=== PATIENT | male | born 1975 | race Caucasian/White ===

== ENCOUNTER 2016-11-19 14:43 | Outpatient (RCR) | payer OTHER ==
[~2016-11-19 14:43] MED LIST: AMLO10TA82 PO; ASP325T PO; ASP81TEC PO; ASPI325T32 PO; ATR20T PO; DOXY100C2 PO; ISM60TCR PO; LISI20TA2 PO; LSNP20T PO; METO25TA2 PO; NTR.4SL PO; OMEP20CA6 PO; ONDA8TAB9 PO
== END 2017-02-17 | disposition home or self-care (01) ==
LOC: LAB 14:43 → EDSTATUS 16:01
PROVIDERS: ATTEND Nurse Practitioner Women's Health
DX: Z31.41 Encounter for fertility testing (principal)
CPT/HCPCS: 89320

== ENCOUNTER → 2019-12-29 | Outpatient (CLI) | payer BC ==
--- NOTE | 2019-12-29 15:23 | Diagnostic Imaging Report ---
INDICATION: Neck pain. Cervical spine. FINDINGS: AP and lateral views of the cervical spine show extensive postsurgical changes with effusions extending from C3 through C7. This includes discectomies at three levels and laminectomies C5 through C7. Alignment is normal. Hardware appears to be intact. IMPRESSION: Postoperative changes from extensive fusion of the cervical spine. No acute abnormality seen. Dictated by: Dictated on workstation # [id number]
== END ==
LOC: RAD FS 14:59
PROVIDERS: ATTEND Nurse Practitioner Family
DX: M54.2 Cervicalgia (principal); Z98.890 Other specified postprocedural states; Z98.1 Arthrodesis status
CPT/HCPCS: 72040

== ENCOUNTER 2020-04-14 15:19 | Emergency (ER) | payer BC ==
[~2020-04-14] VITALS: Ht 190.5 cm; Wt 131.6 kg
--- NOTE | 2020-04-14 15:33 | ED Upper Extremity ---
General Chief Complaint: Upper Extremity Stated Complaint: RT HAND INJ Source: patient, RN/MD Exam Limitations: no limitations History of Present Illness Date Seen by Provider: Apr 14, 2020 Time Seen by Provider: 15:25 Initial Comments This patient is a 44-year-old male that presents to the emerged from stated he had a fall 2 days ago was at work. Patient states unsure whether he passed out or dispel. Patient states he admit complaint right hand pain and bilateral hand swelling over the fifth metacarpal. Patient does have a history of high blood pressure and cardiac disease where he had said several stents in the past. Denies any history of cardiac attacks or heart attacks. States he just had a stress test that he felt again stents. Patient was offered full medical screening exam including laboratory evaluation and further imaging patient declines request only x-ray of right hand. Patient states he does not feel dizzy and has had no other issues since falling on Wednesday 2 days ago. Patient's blood pressure on arrival is 140/101. Patient states this is normal blood pressure for him and he does take lisinopril for the same. Onset: last week Pain/Injury Location: right hand Method of Injury: fell Allergies and Home Medications Allergies Coded Allergies: No Known Drug Allergies (Unverified , 03/31/12) Home Medications Aspirin 325 Mg Tablet.dr, 325 MG PO, (Reported) Atorvastatin 20 Mg Tablet, 20 MG PO HS, (Reported) Doxycycline Hyclate 100 Mg Capsule, 100 MG PO BID, (Reported) Lisinopril 20 Mg Tab, 20 MG PO DAILY, (Reported) Ondansetron Hcl 8 Mg/Tab Tab.rapdis, 8 MG PO Q6H Prescribed by: NASEEM GLOVER on 12/06/12 [id number] Patient Home Medication List Home Medication List Reviewed: Yes Review of Systems Constitutional: No no symptoms reported; see HPI; No chills, No diaphoresis, No dizziness, No fever, No malaise, No weakness, No weight gain, No weight loss, No other EENTM: No see HPI, No no symptoms reported, No ear discharge, No hearing loss, No ear pain, No blurred vision, No double vision, No eye pain, No tearing, No vision loss, No dental problems, No hoarseness, No mouth pain, No mouth swelling, No epistaxis, No nose congestion, No nose pain, No throat pain, No throat swelling, No other Respiratory: No no symptoms reported, No see HPI, No cough, No dyspnea on exertion, No hemoptysis, No orthopnea, No phlegm, No short of breath, No stridor, No wheezing, No other Cardiovascular: No no symptoms reported, No see HPI, No chest pain, No edema, No Hx of Intervention, No palpitations, No syncope, No vascular heart diseas, No other Gastrointestinal: No RUQ, No LUQ, No RLQ, No LLQ, No no symptoms reported, No see HPI, No abdominal pain, No constipation, No diarrhea, No dysphagia, No hematemesis, No heartburn, No jaundice, No loss of appetite, No melena, No nausea, No vomiting, No other Musculoskeletal: No no symptoms reported; see HPI; No back pain, No gout; joint pain; No joint swelling, No muscle pain, No muscle stiffness, No muscle cramps, No muscle twitching, No muscle weakness, No neck pain, No other Skin: No no symptoms reported, No see HPI, No change in color, No change in hair/nails, No dryness, No hx of skin cancer, No lesions, No lumps, No pruritus, No rash, No other All Other Systems Reviewed Negative Unless Noted: Yes Past Smbkuru-Rzedcb-Fcrecj Hx Patient Social History Alcohol Use: Denies Use Recreational Drug Use: No Smoking Status: Never a Smoker 2nd Hand Smoke Exposure: No Recent Hopitalizations: No Physical Abuse: No Sexual Abuse: No Mistreated: No Fear: No Immunizations Up To Date Date of Pneumonia Vaccine: Nov 08, 2008 Date of Influenza Vaccine: Nov 08, 2011 Past Medical History Surgeries: Yes (hernia, knee surgery, neck surgery) Abdominal, Appendectomy, Gallbladder, Orthopedic Respiratory: No Cardiac: Yes High Cholesterol, Hypertension Neurological: Yes (spine fusion surgery twice) Reproductive Disorders: No Sexually Transmitted Disease: No HIV/AIDS: No Genitourinary: No Gastrointestinal: Yes Musculoskeletal: No Endocrine: No HEENT: No Cancer: No Psychosocial: No Integumentary: No Blood Disorders: No Adverse Reaction/Blood Tranf: No Physical Exam Vital Signs Vital Signs - First Documented 04/14/20 15:25 Temp 36.3 Pulse 97 Resp 18 B/P (MAP) 141/101 (114) Pulse Ox 95 O2 Delivery Room Air Capillary Refill : Height, Weight, BMI Height: '" Weight: lbs. oz. kg; BMI Method:Stated General Appearance: WD/WN, no apparent distress HEENT: PERRL/EOMI, normal ENT inspection, TMs normal, pharynx normal Neck: non-tender, full range of motion, supple, normal inspection Cardiovascular: normal peripheral pulses, regular rate, rhythm, no edema, no gallop, no JVD, no murmur Respiratory: chest non-tender, lungs clear, normal breath sounds, no respiratory distress, no accessory muscle use Gastrointestinal: normal bowel sounds, non tender, soft, no organomegaly, no pulsatile mass, abnormal bowel sounds Hand: Right, bone tenderness, swelling Progress/Results/Core Measures Results/Orders My Orders Orders - ALAN PARADA MD Hand 3 View Right (04/14/20 15:28) Vital Signs/I&O 04/14/20 15:25 Temp 36.3 Pulse 97 Resp 18 B/P (MAP) 141/101 (114) Pulse Ox 95 O2 Delivery Room Air Progress Progress Note : Time: 16:08 Progress Note Negative review x-rays. Patient appears to have just a mild sprain to the hand and wrist. We'll place patient Velcro cock-up splint. Patient keep rest ice elevation compression as needed. Follow-up with PCP in 2-3 days. May use Tylenol Motrin as needed. Departure Impression Primary Impression: Hand sprain Disposition: 01 HOME, SELF-CARE Condition: Stable Departure-Patient Inst. Decision time for Depature: 16:09 Referrals: [facility] (PCP) Primary Care Physician ANAND GROVER APRN (Family) Primary Care Physician Patient Instructions: Contusion (DC) Add. Discharge Instructions: Velcro wrist splint as instructed. Rest ice elevation. Diclofenac as needed for pain. Follow-up with PCP in 2-3 days. All discharge instructions reviewed with patient and/or family. Voiced understanding. Scripts Diclofenac Sodium (Diclofenac Sodium) 75 Mg Tablet. 75 MG PO BID for 10 Days, #20 TAB 0 Refills Prov: ALAN PARADA MD 04/14/20 ALAN PARADA MD Apr 14, 2020 15:33
--- OUTSIDE RECORDS SUMMARY | 2020-04-14 15:33 | XMS REPORT | Clinical Summary ---
Author Author Admin, Talha Delvalle Organization [facility] Talha Address Unknown Phone Unavailable Allergies, Adverse Reactions, Alerts Allergy Name Reaction Description Start Date Severity Status Pr ovider No Known Allergies Rd Howe LPN Conditions or Problems Problem Name Problem Code Onset Date Status Entry Date Provider Comment Standard Description Annotate Problems Unknown Active Medication List Medication Instructions Start Date Stop Date Generic Name NDC Status Provider Patient Instruction IBUPROFEN 200 MG ORAL TABLET 1 tab by mouth daily every 6 hours as needed IBUPROFEN 44778594671 Active Rebecca Elder Active 8 HOUR PAIN RELIEVER 650 MG ORAL TABLET EXTENDED RELEA SE 1 tab by mouth every 8 hours as needed ACETAMINOPHEN 31261087039 Active Rebecca Elder Active ADULT ASPIRIN REGIMEN 81 MG ORAL TABLET DELAYED RELEASE 1 tab by mouth daily ASPIRIN 96661740384 Active Rebecca Elder Active NITROSTAT 0.4 MG SUBLINGUAL TABLET SUBLINGUAL 1 tab un simin tounge every 5 minutes as needed for chest pain NITROGLYCERIN 47229884722 Active Rebecca Elder Active LISINOPRIL 20 MG ORAL TABLET 1 tablet by mouth daily LISINOPRIL 84607807041 Active Rebecca Elder Active HYDROCODONE-ACETAMINOPHEN 5-325 MG ORAL TABLET 1 tab b y mouth every 4 hours as needed HYDROCODONE-ACETAMINOPHEN 26364466013 Active Rebecca Luque r Active EC-NAPROSYN 500 MG ORAL TABLET DELAYED RELEASE 1 tab by mouth twice daily NAPROXEN 34939300694 Active Rebecca Elder Active ATORVASTATIN CALCIUM 40 MG ORAL TABLET 1 nightly, for cholesterol ATORVASTATIN CALCIUM 14281720327 Active Rebecca Elder Active HYOSCYAMINE SULFATE 0.125 MG ORAL TABLET DISINTEGRATIN G 1 tab by mouth every 4 hours as needed HYOSCYAMINE SULFATE 38051723012 Active Rebecca Elder Active HYDROCODONE-ACETAMINOPHEN 10-325 MG/15ML ORAL SOLUTION 1 tab by mouth every 4 hours as needed HYDROCODONE-ACETAMINOPHEN 38491852601 Active Da adonay Higginbotham Active Advance Directives Directive Description Start Date PERMISSION TO SHARE Vital Signs Date Name Value Unit Range Description blood pressure, diastolic 76 mm[Hg] BP chavez blood pressure, systolic 138 mm[Hg] BP sys height E&M 75 [in_us] Bdy height pulse rate E&M 72 /min Heart rate temperature E&M 98.3 [degF] Body temp erature weight E&M 260 [lb_av] Weight Measure d
--- OUTSIDE RECORDS SUMMARY | 2020-04-14 15:33 | XMS REPORT | Continuity of Care Document ---
Author Author Pure[employer]HERMEL[employer] Organization [facility] [employer] Address Unknown Phone Unavailable Care Team Providers Care Tongue Lining Stitcher Name Role Phone [facility] Unavailable Unavailable Problems Problem Status Onset Date Classification Date Reported Comments Source Past Medical History Unknown Diagnosis 01/21/2012 [facility] CERVICALGIA Active [facility] BRACHIAL NEURITIS OR RADICULITIS NOS Active [facility] Medications Medication Details Route Status Patient Instructions Ordering Provider Order Date Source Lortab 5/500 1 TAB, PO, 4 time s a day, 10/26/11 11:22:13 PO Ordered CLIFFT 10/08 [facility] Allergies, Adverse Reactions, Alerts No Known Medication Allergies Immunizations No Data Provided for This Section Results Order Name Results Value Reference Range Date Interpretation Comments Source CSF Protein CSF 30 mg/dL 15 - 45 10/28/2011 [facility] er CSF Glucose CSF 63 mg/dL 40 - 70 10/28/2011 [facility] er CSF Color CSF Colorless <b r/>(10/28/2011 08:30:00) <sup> </sup> Colorless 10/28/2011 [facility] CSF RBC CSF 17 /mm3 <=5 10/28/2011 HI [facility] CSF WBC CSF 4 /mm3 <=5 10/28/2011 [facility] CSF Volume CSF 1.0 mL 10/28/2011 NA [facility] CSF Appear CSF Clear
( 10/28/2011 08:30:00) <sup> </sup> Clear 10/28/2011 [facility] CSF Differential? CSF No
( 08:30:00) <sup> </sup> 10/28/2011 [facility] UNK UNK [facility] Pathology Reports No Data Provided for This Section Diagnostic Reports No Data Provided for This Section Consultation Notes No Data Provided for This Section Discharge Summaries No Data Provided for This Section History and Physicals No Data Provided for This Section Vital Signs Vital Sign Value Date Comments Source Inet NIBP Diastolic 95 mmHg 10/28/2011 [facility] Inet NIBP Systolic 139 mmHg 10/28/2011 [facility] Heart Rate 89 bpm 10/28/2011 [facility] er Heart Rate Location Auto BP (1 12/29/2010 09:00:00) 10/28/2011 [facility] Respiratory Rate 18 br/min 10/28/2011 [facility] NIBP MAP Calc 110 10/28/2011 [facility] er BP Location Arm, right (2010 09:00:00) 10/28/2011 [facility] Temp Method Oral (10/28/2011 0 9:00:00) 10/28/2011 [facility] Temperature 97 DegF 10/28/2011 [facility] er Encounters Location Location Details Encounter Type Encounter Number Reason For Visit Attending Provider ADM Date DC Date Status Source [facility] OP In A Bed [id number] NECK PAIN BILATERAL AR M PAIN NING AHMADI 10/28/2011 10/28/2011 [facility] O Joes Tran MD 10/21/2011 Active [facility] [id number] Laisha Tran 10/21/2011 [facility] Procedures Procedure Code Date Perfomer Comments Source Contrast myelogram [id number] 10/28/2011 [facility] Muscle test, 2 limbs 54807 10/21/2011 [facility] Motor nerve conduction test 95 903 10/21/2011 [facility] Sense nerve conduction test 95 904 10/21/2011 [facility] Plan of Care No Data Provided for This Section Social History Social History Date Source Social History ElementDescriptionQuantit y Unknown 01/21/2012 [facility] Assessment and Plan No Data Provided for This Section Family History Value Date S ource Family MemberDiagnosisAge At OnsetStatus Unknown 01/21/2012 [facility] Advance Directives Order Name Results Value Date Source Advance Directives Advance Dir ectives DirectiveEffective Date Unknown 01/21/2012 [facility] Functional Status No Data Provided for This Section
--- OUTSIDE RECORDS SUMMARY | 2020-04-14 15:33 | XMS REPORT | Encounter Summary ---
Author Author [facility] Organization [facility] Address Unknown Phone Unavailable Care Team Providers Care Card Assembler Name Role Phone ShandraMiguelina jara SIMONE PCP Reason for Visit * Reason Comments Appointment Encounter Details Care Team Description [place] [address] [place] [address] Appointment 03/06/2020 Telephone [facility] [address] [place] [id number] Social History Date Tobacco Use Types Packs/Day Years Used Never Smoker Smokeless Tobacco: Never Used Drinks/Week oz/Week Comments Alcohol Use No Sex Assigned at Date Recorded Not on file Industry Job Start Date Occupation Not on file Not on file Not on file Travel End Travel History Travel Start No recent travel history available. documented as of this encounter Functional Status Date of Assessment Functional Status Response 11/04/2018 Does the patient have a hearing impairment: No 11/04/2018 Does the patient have a visual impairment: Yes 11/04/2018 Does the patient have impaired ambulation: Yes 11/04/2018 Does the patient have an activity of daily living No (ADL) impairment: 11/04/2018 Does the patient have an instrumental activity of No daily living (IADL) impairment: Date of Assessment Cognitive Status Response 11/04/2018 Does the patient have a cognitive impairment: No documented as of this encounter Miscellaneous Notes * Telephone Encounter - Maribell Person - 03/06/2020 2:53 PM CDT PATIENT NOTIFIED 03/06/20 @ 2:53 AT HOME REGARDING CHANGE IN APPOINTMENT---RGL * Telephone Encounter - Alicia Costello RN - 03/06/2020 2:22 PM CDT Talha returned call and said okay to reschedule, denies any issues at this time. * Telephone Encounter - Whit Wray RN - 03/06/2020 1:51 PM CDT Called and left a voicemail on patient's phone in regards to appointment schedul ed for next week. Inquired if patient' would like to move out his appointment or having concerns that need to be addressed. Direct callback number left as well as information about [employer] portal. documented in this encounter Plan of Treatment Not on filedocumented as of this encounter Visit Diagnoses Not on filedocumented in this encounter
--- OUTSIDE RECORDS SUMMARY | 2020-04-14 15:33 | XMS REPORT | Continuity of Care Document ---
Author Author PAGE Fu Organization [facility] Address [facility] [place] [address] Phone Care Team Providers Care Vice President Of Engineering Name Role Phone PP Unavailable Kris KINNEY, Ernesto DRAPER Unavailable Payers Payer name Insurance type Covered democrat ID Authorization(s ) BCBS Out Of Area GP [id number] Problems Condition Effective Dates (start - stop) Clinical Status Unknown Family History Family Member Diagnosis Age At Onset Status Unknown Social History Social History Element Description Quantity Unknown Allergies, Adverse Reactions, Alerts Substance Reaction Severity Status Unknown Medications Medication Instructions Dosage Effective Dates (start - sto p) Status Unknown Immunizations Vaccine Date Status Unknown Results Test Name Date and Time Measure Units Reference Range Abnormal F lag Comments Unknown Vital Signs Date / Time: Height Weight Pulse Rate Blood Pressure Temperat ure Unknown Procedures Procedure Date Muscle test, 2 limbs Motor nerve conduction test Sense nerve conduction test Encounters Encounter Location Date Patient Visit [facility] Advance Directives Directive Effective Date Unknown
--- OUTSIDE RECORDS SUMMARY | 2020-04-14 15:33 | XMS REPORT | Encounter Summary ---
Author Author [facility] Organization [facility] Address Unknown Phone Unavailable Care Team Providers Care Four Horse Hitch Driver Name Role Phone Miguelina Devi SIMONE PCP Encounter Details Care Team Description Date [place] [address], [place] [address] 03/04/[address] [facility] [address] [address] Social History Date Tobacco Use Types [...] impairment: No documented as of this encounter Plan of Treatment Not on filedocumented as of this encounter Visit Diagnoses Not on filedocumented in this encounter
--- OUTSIDE RECORDS SUMMARY | 2020-04-14 15:33 | XMS REPORT | Clinical Summary ---
Author Author [facility] Organization [facility] Address Unknown Phone Unavailable Care Team Providers Care Towboat Operator Name Role Phone Miguelina Devi NP PCP Source Comments Some departments are not documenting in the electronic medical record. If you d o not see the information that you expected, contact Release of Information in [facility] [employer] Management department at [phone] for further assistan ce in locating additional records.[facility] Allergies No Known Allergies Medications End Date Status Medication Sig Dispensed Refills Start Date Active atorvastatin (LIPITOR) 80 Take 80 mg by 0 mg tablet mouth daily. Active lisinopril (PRINIVIL, Take 20 mg by 0 ZESTRIL) 40 mg tablet mouth daily. Active baclofen (LIORESAL) 10 mg Take 10 mg by 0 tablet mouth at bedtime as needed. Active HYDROcodone/acetaminophen Take 1 tablet 0 (+) (NORCO) 10/325 mg by mouth tablet every 6 hours as needed for Pain Active ketoconazole (NIZORAL) 2 Apply 120 mL 11 1 % topical shampoo topically to 8 affected area three times weekly. Use as wash to skin folds. [place] if let sit at least 5 min before rinsing. Antifungal Active Clindamycin Phosphate 1 % Wipe armpits 120 each 11 swab every 8 morning. Antibacterial . Active gabapentin (NEURONTIN) Take one 180 tablet 3 600 mg tablet tablet by 8 mouth twice daily. Active triamcinolone acetonide Mix 1:1:1 80 g 3 (KENALOG) 0.1 % topical with zinc 0 ointmentIndications: oxide paste Dermatosis and ketoconazole for groin rash. Apply twice daily for up to 2 weeks. Active ketoconazole (NIZORAL) 2 Mix 1:1:1 60 g 11 0 % topical with zinc 0 creamIndications: oxide paste Dermatosis and triamcinolone for groin rash. Apply twice daily for up to 2 weeks. Active Problems Problem Noted Date Degenerative disc disease, cervical 11/04/2018 S/P cervical spinal fusion 11/04/2018 Osteoarthritis of cervical spine with myelopathy 11/2017 Lymphadenopathy of head and neck 08/30/2018 Overview: Impression: 1. 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 Left renal lesion, hyperdense and in determinate 3. Recent cervical spinal surgery 4. Hypertension 5. Hyperlipidemia 6. ECOG PS 0 Plan: 1. On exam, there is no significant lym phadenopathy and I do not have any other compelling features for a lymphom a today. We have still not received his outside pathology, and I would real ly like to review this prior to making definitive statements on his mani e. However, at present, I do not see any compelling evidence for him hav ing a lymphoproliferative disorder. If there is any evidence of lymphoproli ferative disorder, it would be an indolent process for which the standard of care would be observation. 2. Request outside pathology for international controller al review 3. I do not see any reason for cross-se ctional imaging at this point in time. His MRI of the abdomen fortunate ly showed that his renal lesion was benign-appearing and consistent with a simple cyst. No further follow-up was recommended. 4. RTC with me in 1 year, or sooner nadri ulalan new or concerning issues develop I have discussed the diagnosis and rach tment plan with the patient and he expresses understanding and wishes to christopher boland. Encounters Care Team Description Date Type Specialty Rob Carrasco MD Appointment 03/06/2020 Telephone Oncology Rob Carrasco MD 03/04/2020 Orders Only Oncology from Last 3 Months Family History Medical History Relation Name Comments Heart Disease Father Diabetes Maternal Grandfather Stroke Maternal Grandfather Arthritis-osteo Mother Arthritis-rheumatoid Mother Cancer Mother Cancer-Breast Mother Relation Name Status Comments Father Maternal Grandfather Mother Social History Date Tobacco Use Types Packs/Day Years Used Never Smoker Smokeless Tobacco: Never Used Drinks/Week oz/Week Comments Alcohol Use No Sex Assigned at Date Recorded Not on file Industry Job Start Date Occupation Not on file Not on file Not on file Travel End Travel History Travel Start No recent travel history available. Last Filed Vital Signs Reading Time Taken Comments Vital Sign 159/96 03/14/2019 10:54 AM CDT Blood Pressure 93 03/14/2019 10:54 AM CDT Pulse 36.3 C (97.4 F) 03/14/2019 10:54 AM CDT Temperature 18 03/14/2019 10:54 AM CDT Respiratory Rate 96% 03/14/2019 10:54 AM CDT Oxygen Saturation - - Inhaled Oxygen Concentration 126 kg (277 lb 12.8 oz) 11/17/2019 12:53 PM SHOE REPAIRER HELPER Weight 190.5 cm (6' 3") 11/17/2019 12:53 PM SHOE REPAIRER HELPER Height 34.72 11/17/2019 12:53 PM SHOE REPAIRER HELPER Body Mass Index Plan of Treatment Health Maintenance Due Date Last Done Comments DTAP/TDAP VACCINES (1 - 1991 Tdap) PHYSICAL (COMPREHENSIVE) 1991 EXAM INFLUENZA VACCINE 08/08/2020 HEPATITIS C SCREENING Completed 08/30/2018 HIV SCREENING Completed 08/30/2018 Results Not on filefrom Last 3 Months Insurance Type Payer Benefit Subscriber ID Effective Phone Address Plan / Dates Group PPO BCBS [place] [employer] xxxxxxxxxxxx 2016- OUT OF Present STATE [phone] Advance Directives Patient Well Service Floor 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
--- OUTSIDE RECORDS SUMMARY | 2020-04-14 15:33 | XMS REPORT | Clinical Summary ---
Author Author Admin, Talha Delvalle Organization [facility] Talha Address Unknown Phone Unavailable Allergies, Adverse Reactions, Alerts Allergy Name Reaction Description Start Date Severity Status Pr ovider No Known Allergies Rd Howe SHOULDER PUNCHER Conditions or Problems Problem Name Problem Code Onset Date Status Entry Date Provider Comment Standard Description Annotate Problems Unknown Active Medication List Medication Instructions Start Date Stop Date Generic Name NDC Status Provider Patient Instruction IBUPROFEN 200 MG ORAL TABLET 1 tab by mouth daily every 6 hours as needed IBUPROFEN 48837916127 Active Rebecca Elder Active 8 HOUR PAIN RELIEVER 650 MG ORAL TABLET EXTENDED RELEA SE 1 tab by mouth every 8 hours as needed ACETAMINOPHEN 87800563658 Active Rebecca Elder Active ADULT ASPIRIN REGIMEN 81 MG ORAL TABLET DELAYED RELEASE 1 tab by mouth daily ASPIRIN 43953976872 Active Rebecca Elder Active NITROSTAT 0.4 MG SUBLINGUAL TABLET SUBLINGUAL 1 tab un simin tounge every 5 minutes as needed for chest pain NITROGLYCERIN 18108613725 Active Rebecca Elder Active LISINOPRIL 20 MG ORAL TABLET 1 tablet by mouth daily LISINOPRIL 08726460349 Active Rebecca Elder Active HYDROCODONE-ACETAMINOPHEN 5-325 MG ORAL TABLET 1 tab b y mouth every 4 hours as needed HYDROCODONE-ACETAMINOPHEN 81822401834 Active Rebecca Elaiden r Active EC-NAPROSYN 500 MG ORAL TABLET DELAYED RELEASE 1 tab by mouth twice daily NAPROXEN 20357600489 Active Rebecca Elder Active ATORVASTATIN CALCIUM 40 MG ORAL TABLET 1 nightly, for cholesterol ATORVASTATIN CALCIUM 42905163763 Active Rebecca Elder Active HYOSCYAMINE SULFATE 0.125 MG ORAL TABLET DISINTEGRATIN G 1 tab by mouth every 4 hours as needed HYOSCYAMINE SULFATE 54115756085 Active Rebecca Elder Active HYDROCODONE-ACETAMINOPHEN 10-325 MG/15ML ORAL SOLUTION 1 tab by mouth every 4 hours as needed HYDROCODONE-ACETAMINOPHEN 73167811700 Active Da adonay Elder Active Advance Directives Directive Description Start Date [...]
--- OUTSIDE RECORDS SUMMARY | 2020-04-14 15:33 | XMS REPORT | CCD ---
Author Author Auto Generated, PAGE Delvalle Organization [facility] er Address Unknown Phone Unavailable Care Team Providers Care Data Entry Email Processor Name Role Phone GALLO KINNEY, DR. Magy SHARMA CP [phone] ERICA KINNEY, DR. lEaine BARCLAY RP [phone] EDUARDA KINNEY, LUCAS PP [phone] Results CSF Most recent to oldest [Reference Range]: 1 Glucose CSF [40-70 mg/dL] 63 mg/dL (10/28/2011 08:30:00) Protein CSF [15-45 mg/dL] 30 mg/dL (10/28/2011 08:30:00) Appear CSF [Clear] Clear (10/28/2011 08:30:00) Color CSF [Colorless] Colorless (10/28/2011 08:30:00) Differential? CSF No (10/28/2011 08:30:00) RBC CSF [<=5 /mm3] 17 /mm3 *HI* (10/28/2011 08:30:00) Volume CSF 1.0 mL *NA* (10/28/2011 08:30:00) WBC CSF [<=5 /mm3] 4 /mm3 (10/28/2011 08:30:00)
--- OUTSIDE RECORDS SUMMARY | 2020-04-14 15:33 | XMS REPORT ---
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 Unavailable Oma vailable Beckie Patel Unavailable Unavailable GEORGETTE, RITA Unavailable Unavailable GEORGETTE, RITA Unavailable Unavailable GEORGETTE, RITA Unavailable Unavailable BROWN, CLAIRE Unavailable Unavailable BROWN, CLAIRE Unavailable Unavailable BROWN, CLAIRE Unavailable Unavailable LUIS ALBERTO [employer] SUPERVISOR, [employer] SUPERVISOR Unavailable Unavailable REILLY [employer] SUPERVISOR, ANAND S Unavailable Unavailable Unavailable Unavailable Unavailable Unavailable Unavailable Unavailable Unavailable Unavailable Unavailable Unavailable Allergies Normalized Allergy Reported Date of Reaction(s) Care Provider Facility Allergy Type classification allergen Allergy Onset DA (8 Unclassified No Known Drug 03-31-2012 - no information BREANNA STONE , Not Available sources.) Allergies (71428) Medications Medication Ingredient Drug Dose Dates Status Sig Sig Care Class(es) (Normalized) (Original) Provid er acetaminoph Acetaminoph no 650 mg no take 1 8 HOUR PAIN Rebecca en 650 mg en information informat tablet by RELIEVER 650 Elder oral tablet ion mouth every MG ORAL (no (8 eight hours TABLET phone) sources.) as needed EXTENDED RELEASE 1 tab by mouth every 8 hours as needed ACETAMINOPHE N [id number] Active Rebecca Elder Active acetaminoph Acetaminoph Opioid no take 1 HYDROCODONE- Rebecca en 325 mg / en / Agonist informat tablet by ACETAMINOPHE Elder HYDROcodone HYDROcodone ion mouth every N 10-325 (no bitartrate Translation four hours MG/15ML ORAL phone) 5 mg oral s: [ as needed SOLUTION 1 tablet (16 HYDROCODONE tab by mouth sources.) -ACETAMINOP every 4 HEN 10-325 hours as MG/15ML needed SOLN] HYDROCODONE- ACETAMINOPHE N [id number] Active Rebecca Elder Active no take 1 HYDROCOD Rebecca information tablet ONE-ACET Elder by AMINOPHE (no mouth N 5-325 phone) every MG ORAL four TABLET 1 hours tab by as mouth needed every 4 hours as needed HYDROCOD ONE-ACET AMINOPHE N [id number] Active Rebecca Elder Active aspirin 81 Aspirin Platelet 81 mg no take 1 ADULT Rebecca mg delayed Translation Aggregation informat tablet by ASPIRIN Elder release s: [ ADULT Inhibitor, ion mouth once REGIMEN 81 (no oral tablet ASPIRIN Nonsteroida daily MG ORAL phone) (8 REGIMEN 81 l TABLET sources.) MG ORAL Anti-inflam DELAYED TABLET matory Drug RELEASE 1 DELAYED tab by mouth RELEASE] daily ASPIRIN [id number] Active Rebecca Elder Active hyoscyamine Hyoscyamine no 0.125 12-15-19 no take 1 HYO SCYAMINE Rebecca sulfate information mg 19 informat tablet by SULFATE El simin 0.125 mg ion mouth every 0.125 MG (no disintegrat four hours ORAL TABLET phone) ing oral as needed DISINTEGRATI tablet (8 NG 1 tab by sources.) mouth every 4 hours as needed HYOSCYAMINE SULFATE [id number] Active Rebecca Elder Active ibuprofen Ibuprofen Nonsteroida 200 mg no take 1 IBUPROFEN Rebecca 200 mg oral l informat tablet by 200 MG ORAL Elder tablet (8 Anti-inflam ion mouth every TABLET 1 tab (no sources.) matory Drug six hours as by mouth phone) needed daily every 6 hours as needed IBUPROFEN [id number] Active Rebecca Elder Active naproxen Naproxen Nonsteroida 500 mg no take 1 EC-NAPROSYN Rebecca 500 mg Translation l informat tablet by 500 MG ORAL El simin delayed s: [ Anti-inflam ion mouth twice TABLET ( no release EC-NAPROSYN matory Drug daily DELAYED phone) oral tablet 500 MG ORAL RELEASE 1 (8 TABLET tab by mouth sources.) DELAYED twice daily RELEASE] NAPROXEN [id number] Active Rebecca Elder Active nitroglycer Nitroglycer Nitrate 0.4 mg no no NITROSTAT Rebecca in 0.4 mg in Vasodilator informat information 0.4 MG Elder sublingual Translation ion SUBLINGUAL (no tablet (8 s: [ TABLET phone) sources.) NITROSTAT SUBLINGUAL 1 0.4 MG tab under SUBLINGUAL tounge every TABLET 5 minutes as SUBLINGUAL] needed for chest pain NITROGLYCERI N [id number] Active Rebecca Elder Active Problems Active Problems Problem Normalized Date Last Normalized Normalized Provider Fa derek Classification Problem(s) Recorded Problem Problem Sta tus Duration Other Arthrodesis Episodic Active DARCI KAUR V ia connective status [facility] tissue disease Hospital - (1 source.) [place] ([address]) Spondylosis; Cervicalgia Episodic Active ANAND GROVER VC H Via intervertebral [facility] disc [facility] - disorders; [place] other back ([address]296) problems (1 source.) Contraceptive Encounter for Episodic Active CALDERON LUIS ALBERTO No t Available and fertility (67718) procreative testing management (5 sources.) Other No current no information Active [facility] screening for problems or [facility] suspected disability (28262) (Work conditions Phone: (not mental disorders or ) infectious disease) (8 sources.) Residual Other Episodic Active DARCI KAUR Via codes; specified [facility] unclassified postprocedural Hospital - (1 source.) states [place] ([address]) Other Pain in joint, Episodic Active CLAIRE BROWN Hos pital non-traumatic shoulder [facility] joint region [place] disorders ([place] ([address]) sources.) Other Pain in left Episodic Active CLAIRE BROWN Hospi [facility] non-traumatic shoulder [facility] joint [place] disorders (2 [facility] (24302) sources.) Past or Other Problems Problem Normalized Date Last Normalized Normalized Provider Fa derek Classification Problem(s) Recorded Problem Problem Sta tus Duration Nonspecific Chest pain, Episodic Completed BREANNA BAQIR , Not A vailable chest pain (2 unspecified MD (88681) sources.) Other Long-term Episodic Completed BREANNA BAQIR , Not Avail able aftercare (2 (current) use MD (82084) sources.) of other medications Procedures The data below is from unstructured sourcesNo procedure information available. Immunizations No Information Results Test Name Value Interpretation Reference Range Date Time Fa cility (Normalized) (Normalized) (Medline Reference) laboratory on 2019-10-30 Albumin 4.5 g/dL (N) 3.4 - 5.4 g/dL [facility] [Mass/Vol] [facility] (39581) Albumin/Globulin 1.6 {ratio} (N) 1 - 2.5 {ratio} Comm [facility] [Mass ratio] [facility] () ALP [Catalytic 85 U/L (N) 44 - 147 U/L [facility] Health activity/Vol] [facility] () ALT [Catalytic 16 U/L (N) 4 - 40 U/L [facility] activity/Vol] [facility] () AST [Catalytic 19 U/L (N) 10 - 34 U/L [facility] Health activity/Vol] [facility] () Basophils (Bld) 0.27 10*3/uL (H) 0 - 0.3 10*3/uL [facility] [place] [facility] [#/Vol] [facility] () Basophils/100 2.9 % (N) 0.5 - 1 % Community [facility]th WBC (Bld) [facility] () Bilirubin 0.4 mg/dL (N) 0.1 - 1.2 mg/dL [facility] [Mass/Vol] [facility] () Calcium 10.0 mg/dL (N) 8.5 - 10.2 mg/dL [facility] Health [Mass/Vol] [facility] () Chloride 106 mmol/L (N) 95 - 106 mmol/L [facility] [Moles/Vol] [facility] () CO2 [Moles/Vol] 25 mmol/L (N) 23 - 29 mmol/L [facility] () Creatinine 1.01 mg/dL (N) [facility] Healt h [Mass/Vol] [facility] () Eosinophils 0.363 10*3/uL (N) 0.05 - 0.5 Community [facility] alth (Bld) [#/Vol] 10*3/uL [facility] () Eosinophils/100 3.9 % (N) 1 - 4 % [facility] Health WBC (Bld) [facility] () Erythrocyte 13.0 % (N) 11.6 - 14.6 % Community H ealth distribution [facility] width (RBC) [facility] [Ratio] (71409) GFR/1.73 sq M 103 (N) 90 - 120 Community He alth predicted among mL/min/{1.73_m2} mL/min/{1.73_m2} Center o f [facility] blacks MDRD [facility] (S/P/Bld) [Vol (35688) rate/Area] GFR/1.73 sq 89 (N) 90 - 120 [facility] th M.predicted MDRD mL/min/{1.73_m2} mL/min/{1.73_m2} [facility] (S/P/Bld) [Vol [facility] rate/Area] (23189) Globulin (S) 2.8 g/dL (N) 2 - 3.5 g/dL [facility] [Mass/Vol] [facility] (81035) Glucose 84 mg/dL (N) 60 - 125 mg/dL [facility] [Mass/Vol] [facility] (98435) Hematocrit (Bld) 50.3 % (H) 36.1 - 50.3 % [facility] [Volume [facility]] [facility] (93463) Hemoglobin (Bld) 17.5 g/dL (H) 12.1 - 17.2 g/dL [facility] [Mass/Vol] [facility] (59618) Lymphocytes 2.437 10*3/uL (N) 0.9 - 2.9 [facility] He alth (Bld) [#/Vol] 10*3/uL [facility] (27406) Lymphocytes/100 26.2 % (N) 20 - 40 % [facility] WBC (Bld) [facility] (10940) MCH (RBC) 30.6 pg (N) 27 - 31 pg [facility] [Entitic mass] [facility] (72800) MCHC (RBC) 34.8 g/dL (N) 32 - 36 g/dL [facility] [Mass/Vol] [facility] (38369) MCV (RBC) 87.9 fL (N) 80 - 100 fL [facility] Hea lth [Entitic vol] [facility] (75328) Monocytes (Bld) 0.902 10*3/uL (N) 0.3 - 0.9 Communit y Health [#/Vol] 10*3/uL [facility] (94825) Monocytes/100 9.7 % (N) 2 - 8 % Community [facility] WBC (Bld) [facility] (51443) Neutrophils 5.329 10*3/uL (N) 1.7 - 7 10*3/uL Counts include 234 beds at the [facility] Health (Bld) [#/Vol] [facility] (26650) Neutrophils/100 57.3 % (N) 40 - 60 % [facility] WBC (Bld) [facility] (56711) Platelet mean 11.1 fL (N) 7.2 - 11.7 fL [facility] Health volume (Bld) [facility] [Entitic vol] [facility] (43317) Platelets (Bld) 277 10*3/uL (N) 150 - 450 [facility] [#/Vol] 10*3/uL [facility] (87632) Platelets LM Ql ADEQUATE (N) [facility] th (Bld) [facility] (23670) Potassium 4.2 mmol/L (N) 3.7 - 5.2 mmol/L Critical access hospital [Moles/Vol] [facility] (54847) Protein 7.3 g/dL (N) 6.4 - 8.3 g/dL [facility] [Mass/Vol] [facility] (27820) RBC (Bld) 5.72 10*6/uL (N) 4.2 - 6.1 [facility] Hea lth [#/Vol] 10*6/uL [facility] (85073) Sodium 138 mmol/L (N) 135 - 145 mmol/L [facility] Health [Moles/Vol] [facility] (12169) Urea nitrogen 12 mg/dL (N) 7 - 20 mg/dL [facility] [Mass/Vol] [facility] (12969) Urea NOT APPLICABLE (no code) [facility] Healt h nitrogen/Creatin [facility] [Mass ratio] [facility] (99798) WBC (Bld) 9.3 10*3/uL (N) 3.5 - 10.5 [facility] [#/Vol] 10*3/uL [facility] (21259) thyroid on 2019-03-13 Free T4 1.4 ng/dL (N) 0.9 - 2.2 ng/dL [facility] [Mass/Vol] [facility] (80815) TSH Qn 1.07 m[IU]/L (N) 0.4 - 4 m[IU]/L [facility] (40831) other on 2019-03-13 Albumin/Globulin 1.5 (N) [facility] [Mass ratio] [facility] (82881) Cholesterol non 166 (H) [facility] HDL [Mass/Vol] [facility] (48239) Cholesterol.tota 5.4 (H) Critical access hospital l/Cholesterol in [facility] HDL [Mass ratio] [facility] (24317) Erythrocyte 13.8 % (N) 11.6 - 14.6 % [facility] ealth distribution [facility] width (RBC) [facility] [Ratio] (04089) GFR/1.73 sq 92 (N) 90 - 120 [facility] M.predicted MDRD mL/min/{1.73_m2} mL/min/{1.73_m2} [facility] (S/P/Bld) [Vol [facility] rate/Area] (78797) Globulin (S) 3.0 (N) [facility] [Mass/Vol] [facility] (13043) MCHC (RBC) 33.4 g/dL (N) 32 - 36 g/dL [facility] alth [Mass/Vol] [facility] (05431) Platelet mean 11.3 fL (N) 7.2 - 11.7 fL [facility] volume (Bld) [facility] [Entitic vol] [facility] (52016) Service comment no information (no code) [facility] (Unsp spec) [facility] [Interp] [facility] (48502) Sex hormone 65 nmol/L (H) [facility] binding globulin [facility] [Moles/Vol] [facility] (89750) Testosterone 702 ng/dL (no code) [facility] [Mass[facility]] [facility] (35178) TESTOSTERONE, 53.8 (no code) [facility] FREE [facility] (06266) TESTOSTERONE,BIO 113.0 (no code) [facility] Hea lth AVAILABLE [facility] (21954) metabolic panel on 2019-03-13 Albumin 4.4 g/dL (N) 3.4 - 5.4 g/dL [facility] [Mass/Vol] [facility] (09354) ALP [Catalytic 82 U/L (N) 44 - 147 U/L [facility] activity/Vol] [facility] (16627) ALT [Catalytic 20 U/L (N) 4 - 40 U/L [facility] ealt activity/Vol] [facility] (19461) AST [Catalytic 24 U/L (N) 10 - 34 U/L [facility] activity/Vol] [facility] (36556) Bilirubin 0.6 mg/dL (N) 0.1 - 1.2 mg/dL [facility] [Mass/Vol] [facility] (34711) Calcium 9.8 mg/dL (N) 8.5 - 10.2 mg/dL [facility] hospital [Mass/Vol] [facility] (73242) Chloride 105 mmol/L (N) 95 - 106 mmol/L [facility] [Moles/Vol] [facility] (00217) CO2 [Moles/Vol] 25 mmol/L (N) 23 - 29 mmol/L [facility] (78653) Creatinine 0.99 mg/dL (N) [facility] [Mass/Vol] [facility] (18783) GFR/1.73 sq M 106 (N) 90 - 120 [facility] He alth predicted among mL/min/{1.73_m2} mL/min/{1.73_m2} [place] MDRD [facility] (S/P/Bld) [Vol (14578) rate/Area] Glucose 90 mg/dL (N) 60 - 125 mg/dL [facility] [Mass/Vol] [facility] (05203) Potassium 4.3 mmol/L (N) 3.7 - 5.2 mmol/L [facility] [Moles/Vol] [facility] (38632) Protein 7.4 g/dL (N) 6.4 - 8.3 g/dL [facility] [Mass/Vol] [facility] (67896) Sodium 139 mmol/L (N) 135 - 145 mmol/L [facility] [Moles/Vol] [facility] (54446) Urea nitrogen 8 mg/dL (N) 7 - 20 mg/dL [facility] [Mass/Vol] [facility] (21627) Urea NOT APPLICABLE (no code) [facility] nitrogen/Creatin [facility] [Mass ratio] [facility] (50465) hematology on 2019-03-13 Basophils (Bld) 0 10*3/uL (N) 0 - 0.3 10*3/uL [facility] [#/Vol] [facility] (60524) Basophils/100 0 % (N) 0.5 - 1 % Community [facility] WBC (Bld) [facility] (35910) Eosinophils 0.258 10*3/uL (N) 0.05 - 0.5 Community [facility] (Bld) [#/Vol] 10*3/uL [facility] (20423) Eosinophils/100 4.1 % (N) 1 - 4 % [facility] WBC (Bld) [facility] (18675) Hematocrit (Bld) 51.2 % (H) 36.1 - 50.3 % [facility] [Volume [place] [facility]] [facility] (22467) Hemoglobin (Bld) 17.1 g/dL (N) 12.1 - 17.2 g/dL [facility] [Mass/Vol] [facility] (83734) Lymphocytes 2.123 10*3/uL (N) 0.9 - 2.9 [facility] (Bld) [#/Vol] 10*3/uL [facility] (32723) Lymphocytes/100 33.7 % (N) 20 - 40 % [facility] WBC (Bld) [facility] (49411) MCH (RBC) 29.4 pg (N) 27 - 31 pg [facility] [Entitic mass] [facility] (35949) MCV (RBC) 88.1 fL (N) 80 - 100 fL [facility] l[facility] [Entitic vol] [facility] (30068) Monocytes (Bld) 1.027 10*3/uL (H) 0.3 - 0.9 Critical access hospital [#/Vol] 10*3/uL [facility] (91082) Monocytes/100 16.3 % (N) 2 - 8 % [facility] alth WBC (Bld) [facility] (50116) Neutrophils 2.892 10*3/uL (N) 1.7 - 7 10*3/uL [facility] (Bld) [#/Vol] [facility] (14372) Neutrophils/100 45.9 % (N) 40 - 60 % [facility] WBC (Bld) [facility] (69563) Platelets (Bld) 246 10*3/uL (N) 150 - 450 [facility] [#/Vol] 10*3/uL [facility] (19656) Platelets LM Ql ADEQUATE (N) [facility] (Bld) [facility] (37269) RBC (Bld) 5.81 10*6/uL (H) 4.2 - 6.1 [facility] lth [#/Vol] 10*6/uL [facility] (68947) WBC (Bld) 6.3 10*3/uL (N) 3.5 - 10.5 [facility] [#/Vol] 10*3/uL [facility] (94656) cardiac on 2019-03-13 Cholesterol 204 mg/dL (H) 180 - 200 mg/dL [facility] [Mass/Vol] [facility] (45687) Cholesterol in 38 mg/dL (L) [facility] HDL [Mass/Vol] [facility] (05651) Cholesterol in 146 (H) [facility] LDL [Mass/Vol] [facility] (48375) Triglyceride 95 mg/dL (N) 0 - 150 mg/dL [facility] [Mass/Vol] [facility] (40524) Vital Signs Vital Sign Value Interpretation Reference Date Time Care Prov ider Facility (Normalized) (Normalized) Range Body 98.3 [degF] (no code) 97.8 - 99.0 01-13-2019 [facility] Temperature [degF] 13:00-0500 [employer] (43548) (Work Phone: ) Body weight 117.94 kg (no code) kg 01-13-2019 [facility] Admin [facility] 13:00-0500 [employer] (07891) (Work Phone: ) Blood Pressure 138/ (no code) Systolic: 90 - 01-13-2019 [facility] 76mm[Hg] 120 mm[Hg] 13:00-0500 [employer] (92927) (Work Diastolic: 60 Phone: - 80 mm[Hg] ) Height 190.5 cm (no code) cm 01-13-2019 [facility] Admin [facility] 13:00-0500 [employer] (41511) (Work Phone: ) Pulse (Heart 72 /min (no code) 60 - 100 /min 01-13-2019 [facility] Adm in [facility] Rate) 13:00-0500 [employer] (50672) (Work Phone: ) Interventions No Information Plan of Treatment The data below is from unstructured sources Prescriptions See Medication Section Goals No Information Social History No Information Functional Status The data below is from unstructured sourcesNo functional status information available. Mental Status No Information Encounters Encounter Normalized Encounter Encounter Diagnosis Care Provi simin Organization Date Type 12-29-2019 Patient encounter no information ANAND S REILLY APR N [facility] procedure (no phone) [facility] REILLY (no phone) (no phone) 12-07-2019 Patient encounter no information no name no or ganization name procedure 10-30-2019 Patient encounter no information no name no or ganization name procedure 06-07-2019 Patient encounter no information no name no or ganization name procedure 06-07-2019 Patient encounter no information no name no or ganization name procedure 05-30-2019 Patient encounter no information no name no or ganization name - procedure 05-31-2019 05-30-2019 Patient encounter no information no name no or ganization name - procedure 05-31-2019 05-28-2019 Patient encounter no information no name no or ganization name - procedure 05-29-2019 04-14-2019 Patient encounter no information no name no or ganization name procedure 03-13-2019 Patient encounter no information no name no or ganization name procedure 03-10-2019 Patient encounter no information no name no or ganization name procedure 11-19-2016 Patient encounter no information no name no or ganization name procedure 11-19-2016 Patient encounter no information [employer] SUPERVISOR LUIS ALBERTO A PRN [facility] - procedure (no phone) [facility] 02-16-2017 (no phone) 03-31-2012 Patient encounter no information no name no or ganization name - procedure 03-31-2012 Patient encounter no information no name no organizat ion name procedure Medical Equipment No Information Payers Normalized Payer Value [facility] [id number] Private Health Insurance no information Advance Directives Directive Response Recor ded Date/Time Advance Directives No 2:49pm Health Care Power of Quarryman No 12/06/12 2:49pm Organ Donor Yes 12/06/12 2:49pm Directive Description Start Date PERMISSION TO SHARE Discharge Instructions No hospital discharge instruction information available. Additional Source Comments This clinical document has been generated using [employer] software that has been certified by the Office of the National Coordinator for Health Information Technology (ONC 15.99.04.3023.Diam.31.00.0.450853) and the National Committee for Engraver (NCQA, as an eMeasure certified technology). FOR RECORDS PERTAINING TO PATIENTS WHO ARE OR HAVE BEEN ENROLLED IN A CHEMICAL D EPENDENCY/SUBSTANCE ABUSE PROGRAM, SOME INFORMATION MAY BE OMITTED. This clinica l summary was aggregated from multiple sources. Caution should be exercised in using it in the provision of clinical care. This summary normalizes information from multiple sources, and as a consequence, information in this document may ma terially change the coding, format and clinical context of patient data. In reyna tion, data may be omitted in some cases. CLINICAL DECISIONS SHOULD BE BASED ON T HE PRIMARY CLINICAL RECORDS. [facility] [employer] [facility]. provides no warranty or guara ntee of the accuracy or completeness of information in this document.The followi ng information is based on time limited clinical information
--- OUTSIDE RECORDS SUMMARY | 2020-04-14 15:33 | XMS REPORT | CCD ---
Author Author Auto PAGE Curran Organization [facility] er Address Unknown Phone Unavailable Care Team Providers Care Cable Inspector Name Role Phone GALLO KINNEY, DR. Magy SHARMA CP [phone] ERICA KINNEY, DR. Elaine BARCLAY RP [phone] EDUARDA KINNEY, LUCAS PP [phone] Allergies, Adverse Reactions, Alerts Substance Reaction Status NKA Active Problem List Condition Effective Dates Status Spinal stenosis Active Medications Medication Instructions Start Date End Date Status Lortab 5/500 1 TAB, PO, 4 times a day, 10/26/11 10/26/2011 Ordered 11:22:13 Vital Signs Most recent to oldest [Reference Range]: 1 Temperature [96.8-99.7 DegF] 97 DegF (10/28/2011 09:00:00) Temp Method Oral (10/28/2011 09:00:00) Heart Rate 89 bpm (10/28/2011 09:00:00) Heart Rate Location Auto BP (10/28/2011 09:00:00) Respiratory Rate [14-20 br/min] 18 br/min (10/28/2011 09:00:00) Inet NIBP Systolic [71-219 mmHg] 139 mmHg (10/28/2011 09:00:00) Inet NIBP Diastolic [50-90 mmHg] 95 mmHg *HI* (10/28/2011 09:00:00) NIBP MAP Calc 110 (10/28/2011 09:00:00) BP Location Arm, right (10/28/2011 09:00:00) Procedures Procedures Date Related Diagnosis Contrast myelogram 10/28/2011 00:00:00
--- OUTSIDE RECORDS SUMMARY | 2020-04-14 15:33 | XMS REPORT | Clinical Summary ---
Author Author Admin, Talha Delvalle Organization [facility] Talha Address Unknown Phone Unavailable Allergies, Adverse [...] daily every 6 hours as needed IBUPROFEN 44274247283 Active Rebecca Elder Active 8 HOUR PAIN RELIEVER 650 MG ORAL TABLET EXTENDED RELEA SE 1 tab by mouth every 8 hours as needed ACETAMINOPHEN 60325439121 Active Rebecca Elder Active ADULT ASPIRIN REGIMEN 81 MG ORAL TABLET DELAYED RELEASE 1 tab by mouth daily ASPIRIN 07439783408 Active Rebecca Elder Active NITROSTAT 0.4 MG SUBLINGUAL TABLET SUBLINGUAL 1 tab un simin tounge every 5 minutes as needed for chest pain NITROGLYCERIN 43349866480 Active Rebecca Elder Active LISINOPRIL 20 MG ORAL TABLET 1 tablet by mouth daily LISINOPRIL 81566219234 Active Rebecca Elder Active HYDROCODONE-ACETAMINOPHEN 5-325 MG ORAL TABLET 1 tab b y mouth every 4 hours as needed HYDROCODONE-ACETAMINOPHEN 98021917719 Active Rebecca Elaiden r Active EC-NAPROSYN 500 MG ORAL TABLET DELAYED RELEASE 1 tab by mouth twice daily NAPROXEN 15716853176 Active Rebecca Elder Active ATORVASTATIN CALCIUM 40 MG ORAL TABLET 1 nightly, for cholesterol ATORVASTATIN CALCIUM 61573222180 Active Rebecca Elder Active HYOSCYAMINE SULFATE 0.125 MG ORAL TABLET DISINTEGRATIN G 1 tab by mouth every 4 hours as needed HYOSCYAMINE SULFATE 70489926148 Active Rebecca Elder Active HYDROCODONE-ACETAMINOPHEN 10-325 MG/15ML ORAL SOLUTION 1 tab by mouth every 4 hours as needed HYDROCODONE-ACETAMINOPHEN 06726858194 Active Da adonay Elder Active Advance Directives [...]
--- OUTSIDE RECORDS SUMMARY | 2020-04-14 15:33 | XMS REPORT | Encounter Summary ---
Author Author [facility] Organization [facility] Address Unknown Phone Unavailable Care Team Providers Care Resp Therapist Name Role Phone ShandraMiguelina jara SIMONE PCP Reason for Visit * Reason Comments Skin Problem * (Routine) Referred By Contact Referred To Contact Status Reason Specialty Diagnoses / Procedures Self, Referral Incomplete Encounter Details Care Team Description Date Type Department Victorino Yates MD [address] [facility] [address] [place], [place] [id number] Virgil Franklin MD [address] [place] [address] Dermatosis (Primary Dx) 11/17/2019 Office Visit [facility] [address] [place] [address] Social History Date Tobacco Use Types Packs/Day Years Used Never Smoker Smokeless Tobacco: Never Used Drinks/Week oz/Week Comments Alcohol Use No Sex Assigned at Date Recorded Not on file Industry Job Start Date Occupation Not on file Not on file Not on file Travel End Travel History Travel Start No recent travel history available. documented as of this encounter Last Filed Vital Signs Reading Time Taken Comments Vital Sign - - Blood Pressure - - Pulse - - Temperature - - Respiratory Rate - - Oxygen Saturation - - Inhaled Oxygen Concentration 126 kg (277 lb 12.8 oz) 11/17/2019 12:53 PM PRODUCT MARKETING MANAGER Weight 190.5 cm (6' 3") 11/17/2019 12:53 PM PRODUCT MARKETING MANAGER Height 34.72 11/17/2019 12:53 PM PRODUCT MARKETING MANAGER Body Mass Index documented in this encounter Functional Status Date of Assessment [...] impairment: No documented as of this encounter Progress Notes * Victorino Yates MD - 11/17/2019 1:00 PM PRODUCT MARKETING MANAGER ATTESTATION I personally performed the woo portions of the E/M visit, discussed case with re sident and concur with resident documentation of history, physical exam, assessm ent, and treatment plan unless otherwise noted. Staff name: Victorino Yates MD Date: 11/18/2019 UCT MARKETING MANAGER * Virgil Franklin MD - 11/17/2019 1:00 PM PRODUCT MARKETING MANAGER Date of Service: 11/17/2019 Subjective: Talha York is a 44 y.o. male. History of Present Illness History reviewed from Dr. Yates's office visit 10/13/18 and is unchanged unless oth erwise noted 1. Granuloma gluteale / ICD of groin - At last visit, started on 1:1:1 - zinc oxide diaper paste - ketoconazole antifungal cream - triamcinolone steroid ointment - has been using it to the itchy spots on the groin BID, has still been painful and pruritic at times. - he does scratch at this area. 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 HENT: Negative for congestion, mouth sores and sore throat. Eyes: Negative for pain, redness, itching and visual disturbance. Respiratory: Negative for cough and shortness of breath. Cardiovascular: Negative for palpitations and leg swelling. Gastrointestinal: Negative for abdominal pain, blood in stool, diarrhea, nausea and vomiting. Genitourinary: Negative for difficulty urinating and hematuria. Musculoskeletal: Negative for arthralgias and myalgias. Skin: Negative for color change, pallor, rash and wound. Neurological: Negative for dizziness and seizures. Hematological: Does not bruise/bleed easily. Psychiatric/Behavioral: Negative for confusion and dysphoric mood. The patient i s not nervous/anxious. Objective: atorvastatin (LIPITOR) 80 mg tablet Take 80 mg by mouth daily. baclofen (LIORESAL) 10 mg tablet Take 10 mg by mouth at bedtime as needed. Clindamycin Phosphate 1 % swab Wipe armpits every morning. Antibacterial. gabapentin (NEURONTIN) 600 mg tablet Take one tablet by mouth twice daily. HYDROcodone/acetaminophen(+) (NORCO) 10/325 mg tablet Take 1 tablet by mouth every 6 hours as needed for Pain ketoconazole (NIZORAL) 2 % topical cream Mix 1:1:1 with zinc oxide paste and triamcinolone for groin rash. Apply twice daily for up to 2 weeks. ketoconazole (NIZORAL) 2 % topical shampoo Apply topically to affected area three times weekly. Use as wash to skin folds. [place] if let sit at least 5 min before rinsing. Antifungal lisinopril (PRINIVIL, ZESTRIL) 40 mg tablet Take 20 mg by mouth daily. triamcinolone acetonide (KENALOG) 0.1 % topical ointment Mix 1:1:1 with zinc oxide paste and ketoconazole for groin rash. Apply twice daily for up to 2 week s. Vitals: 11/17/19 1253 Weight: 126 kg (277 lb 12.8 oz) Height: 190.5 cm (75") Body mass index is 34.72 kg/m. Physical Exam Areas Examined (all normal unless noted below): Head/Face Neck Chest/breasts/axillae Back Abdomen Buttocks/groin/genitalia R upper ext L upper ext R lower ext L lower ext Pertinent findings include: Gem multilobulated granulomatous smooth plaques in right inguinal crease - impr segundo from previous photo in the chart from 10/13/2018. Photographed for the benjamin t today. Assessment and Plan: 1. Granuloma gluteale - clear today - Discussed hygiene of groin and buttock, avoid commercial wipes. - Continue ~1:1:1 mixture BID of: - zinc oxide diaper paste - ketoconazole antifungal cream - triamcinolone steroid ointment *as improved, can stop using triamcinolone and continue using zinc and keto for 2 weeks then stop keto and only use zinc oxide as barrier *if flares, go back to using all 3 again for up to 2 weeks per flare - recommend avoidance of commercial wipes - consider biopsy if not improving - Photodocumented today for chart RTC PRN UCT MARKETING MANAGER documented in this encounter Plan of Treatment Not on filedocumented as of this encounter Visit Diagnoses Diagnosis Dermatosis Unspecified disorder of skin and subcut aneous tissue documented in this encounter
--- OUTSIDE RECORDS SUMMARY | 2020-04-14 15:34 | XMS REPORT | Clinical Summary ---
Author Author Admin, Talha Delvalle Organization [facility] Talha Address Unknown Phone Unavailable Allergies, Adverse [...] daily every 6 hours as needed IBUPROFEN 46525759255 Active Rebecca Elder Active 8 HOUR PAIN RELIEVER 650 MG ORAL TABLET EXTENDED RELEA SE 1 tab by mouth every 8 hours as needed ACETAMINOPHEN 68082762673 Active Rebecca Elder Active ADULT ASPIRIN REGIMEN 81 MG ORAL TABLET DELAYED RELEASE 1 tab by mouth daily ASPIRIN 23910301405 Active Rebecca Elder Active NITROSTAT 0.4 MG SUBLINGUAL TABLET SUBLINGUAL 1 tab un simin tounge every 5 minutes as needed for chest pain NITROGLYCERIN 34435405845 Active Rebecca Elder Active LISINOPRIL 20 MG ORAL TABLET 1 tablet by mouth daily LISINOPRIL 88080705995 Active Rebecca Elder Active HYDROCODONE-ACETAMINOPHEN 5-325 MG ORAL TABLET 1 tab b y mouth every 4 hours as needed HYDROCODONE-ACETAMINOPHEN 85804346857 Active Rebecca Luque r Active EC-NAPROSYN 500 MG ORAL TABLET DELAYED RELEASE 1 tab by mouth twice daily NAPROXEN 81463030935 Active Rebecca Elder Active ATORVASTATIN CALCIUM 40 MG ORAL TABLET 1 nightly, for cholesterol ATORVASTATIN CALCIUM 02849680776 Active Rebecca Elder Active HYOSCYAMINE SULFATE 0.125 MG ORAL TABLET DISINTEGRATIN G 1 tab by mouth every 4 hours as needed HYOSCYAMINE SULFATE 67452129678 Active Rebecca Elder Active HYDROCODONE-ACETAMINOPHEN 10-325 MG/15ML ORAL SOLUTION 1 tab by mouth every 4 hours as needed HYDROCODONE-ACETAMINOPHEN 07062592452 Active Da adonay Higginbotham Active Advance Directives [...]
--- OUTSIDE RECORDS SUMMARY | 2020-04-14 15:34 | XMS REPORT | Continuity of Care Document ---
Author Organization Unknown Address Unknown Phone Unavailable Allergies Active Description Code Type Severity Reaction Onset Reported/Identified Relationship to Patient Clinical Status Yes No Known Drug Allergies [id number] Drug Allergy Unknown N/A 03/31/2012 Medications There is no data. Problems Date Dx Coded Attending Type Code Diagnosis Diagnosed By 06/19/2010 401.1 ESSE NTIAL HYPERTENSION BENIGN 06/19/2010 414.9 MYOC ARDIAL ISCHEMIA CHRONIC 06/19/2010 789.09 chin in (inguinal) pain bilaterally 03/31/[address] PAIN NOS 03/31/2012 Ot V58.69 OTH MED,LT,CURRENT USE 11/20/[address] LIFT DRIVER Ot Z31.4 1 ENCOUNTER FOR FERTILITY TESTING 11/23/[address] LIFT DRIVER Ot Z31.4 1 ENCOUNTER FOR FERTILITY TESTING 12/11/2016 LUIS ALBERTO CALDERON LIFT DRIVER Ot Z31.4 1 ENCOUNTER FOR FERTILITY TESTING 12/23/2016 LUIS ALBERTO CALDERON LIFT DRIVER Ot Z31.4 1 ENCOUNTER FOR FERTILITY TESTING 02/17/2017 LUIS ALBERTO CALDERON LIFT DRIVER Ot Z31.4 1 ENCOUNTER FOR FERTILITY TESTING 05/28/2019 W 719.41 ESTER N IN JOINT INVOLVING SHOULDER REGION 05/28/2019 W M25.512 PA IN IN LEFT SHOULDER 01/22/2020 ANAND GROVER LIFT DRIVER Ot M54.2 CERVICALGIA 01/22/2020 ANAND GROVER LIFT DRIVER Ot Z98.1 ARTHRODESIS STATUS 01/22/2020 ANAND GROVER LIFT DRIVER Ot Z98.890 OTHER SPECIFIED POSTPROCEDURAL STATES Procedures There is no data. Results Test Result Range CBC w/MANUAL DIFF - 03/13/19 09:30 WHITE BLOOD CELL COUNT 6.3 Thousand/uL 3 .8-10.8 RED BLOOD CELL COUNT 5.81 Million/uL 4.2 0-5.80 HEMOGLOBIN 17.1 g/dL 13.2-17.1 HEMATOCRIT 51.2 % 38.5-50.0 MCV 88.1 fL 80.0-100.0 MCH 29.4 pg 27.0-33.0 MCHC 33.4 g/dL 32.0-36.0 RDW 13.8 % 11.0-15.0 PLATELET COUNT 246 Thousand/uL 140-400 MPV 11.3 fL 7.5-12.5 ABSOLUTE NEUTROPHILS 2892 cells/uL 1500- 7800 ABSOLUTE MONOCYTES 1027 cells/uL 200-950 ABSOLUTE EOSINOPHILS 258 cells/uL 15-500 ABSOLUTE BASOPHILS 0 cells/uL 0-200 NEUTROPHILS 45.9 % NRG LYMPHOCYTES 33.7 % NRG MONOCYTES 16.3 % NRG EOSINOPHILS 4.1 % NRG BASOPHILS 0 % NRG ABSOLUTE LYMPHOCYTES 2123 cells/uL 850-3 900 PLATELET ESTIMATION ADEQUATE ADEQUATE COMMENT(S) NRG TESTOSTERONE, FREE AND TOTAL - 03/13/19 09:30 TESTOSTERONE, TOTAL, LC/MS/MS 702 ng/dL 250-1100 TESTOSTERONE, FREE 53.8 pg/mL 46.0-224.0 TESTOSTERONE,BIOAVAILABLE 113.0 ng/dL 11 0.0-575.0 SEX HORMONE BINDING GLOBULIN 65 nmol/L 1 0-50 CMP - 10/30/19 10:12 GLUCOSE 84 mg/dL 65-99 UREA NITROGEN (BUN) 12 mg/dL 7-25 CREATININE 1.01 mg/dL 0.60-1.35 eGFR NON-AFR. TOGOLESE 89 mL/min/1.73m2 > OR = 60 eGFR 103 mL/min/1.73m2 > OR = 60 BUN/CREATININE RATIO NOT APPLICABLE (calc) 6-22 SODIUM 138 mmol/L 135-146 POTASSIUM 4.2 mmol/L 3.5-5.3 CHLORIDE 106 mmol/L 98-110 CARBON DIOXIDE 25 mmol/L 20-32 CALCIUM 10.0 mg/dL 8.6-10.3 PROTEIN, TOTAL 7.3 g/dL 6.1-8.1 ALBUMIN 4.5 g/dL 3.6-5.1 GLOBULIN 2.8 g/dL (calc) 1.9-3.7 ALBUMIN/GLOBULIN RATIO 1.6 (calc) 1.0-2. 5 BILIRUBIN, TOTAL 0.4 mg/dL 0.2-1.2 ALKALINE PHOSPHATASE 85 U/L 40-115 AST 19 U/L 10-40 ALT 16 U/L 9-46 CBC w/MANUAL DIFF - 10/30/19 10:12 WHITE BLOOD CELL COUNT 9.3 Thousand/uL 3 .8-10.8 RED BLOOD CELL COUNT 5.72 Million/uL 4.2 0-5.80 HEMOGLOBIN 17.5 g/dL 13.2-17.1 HEMATOCRIT 50.3 % 38.5-50.0 MCV 87.9 fL 80.0-100.0 MCH 30.6 pg 27.0-33.0 MCHC 34.8 g/dL 32.0-36.0 RDW 13.0 % 11.0-15.0 PLATELET COUNT 277 Thousand/uL 140-400 MPV 11.1 fL 7.5-12.5 ABSOLUTE NEUTROPHILS 5329 cells/uL 1500- 7800 ABSOLUTE MONOCYTES 902 cells/uL 200-950 ABSOLUTE EOSINOPHILS 363 cells/uL 15-500 ABSOLUTE BASOPHILS 270 cells/uL 0-200 NEUTROPHILS 57.3 % NRG LYMPHOCYTES 26.2 % NRG MONOCYTES 9.7 % NRG EOSINOPHILS 3.9 % NRG BASOPHILS 2.9 % NRG ABSOLUTE LYMPHOCYTES 2437 cells/uL 850-3 900 PLATELET ESTIMATION ADEQUATE ADEQUATE Encounters ACCT No. Visit Date/Time Discharge Status Pt. Type Provider Facility Loc./Unit Complaint [id number] 06/02/2019 20:08:05 ACT Unknown [id number] 05/30/2019 13:12:00 05/30/2019 23:59: 00 DIS Outpatient GEORGETTE, RITA [id number] 05/30/2019 09:47:00 05/30/2019 23:59: 00 DIS Outpatient RITA PALOMINO [id number] 05/28/2019 09:23:00 Document Registration [id number] 12/29/2019 14:20:00 12/29/2019 23:59:5 9 CLS Outpatient ANAND GROVER [facility] [id number] 10/30/2019 08:40:00 Document Registration [id number] 03/13/2019 08:15:00 Document Registration [id number] 06/03/2019 00:38:35 ACT Document Registration [id number] 12/29/2019 14:59:00 020 23:59:59 CLS Outpatient ANAND GROVER LIFT DRIVER [facility] RAD FS M54.2 [id number] 02/18/2017 00:16:00 017 23:59:59 CLS Preadmit CALDERON SAHU APRN [facility] LAB ENCOUNTER FOR FERTILITY [id number] 11/19/2016 14:43:00 00:01:00 DIS Outpatient CALDERON SAHU APRN [facility] LAB ENCOUNTER FOR FERTILITY [id number] 03/31/2012 06:55:00 Document Registration [id number] 06/19/2010 09:52:00 06/19/2010 23:59: 59 CLS Outpatient
--- OUTSIDE RECORDS SUMMARY | 2020-04-14 15:34 | XMS REPORT | Clinical Summary ---
Author Author Admin, Talha Delvalle Organization [facility] Talha Address Unknown Phone Unavailable Allergies, [...] daily every 6 hours as needed IBUPROFEN 06224894756 Active Rebecca Elder Active 8 HOUR PAIN RELIEVER 650 MG ORAL TABLET EXTENDED RELEA SE 1 tab by mouth every 8 hours as needed ACETAMINOPHEN 21105925671 Active Rebecca Elder Active ADULT ASPIRIN REGIMEN 81 MG ORAL TABLET DELAYED RELEASE 1 tab by mouth daily ASPIRIN 15154939161 Active Rebecca Elder Active NITROSTAT 0.4 MG SUBLINGUAL TABLET SUBLINGUAL 1 tab un simin tounge every 5 minutes as needed for chest pain NITROGLYCERIN 89442342599 Active Rebecca Elder Active LISINOPRIL 20 MG ORAL TABLET 1 tablet by mouth daily LISINOPRIL 72388906159 Active Rebecca Elder Active HYDROCODONE-ACETAMINOPHEN 5-325 MG ORAL TABLET 1 tab b y mouth every 4 hours as needed HYDROCODONE-ACETAMINOPHEN 32706847690 Active Rebecca Elaiden r Active EC-NAPROSYN 500 MG ORAL TABLET DELAYED RELEASE 1 tab by mouth twice daily NAPROXEN 64791199651 Active Rebecca Elder Active ATORVASTATIN CALCIUM 40 MG ORAL TABLET 1 nightly, for cholesterol ATORVASTATIN CALCIUM 17403332577 Active Rebecca Elder Active HYOSCYAMINE SULFATE 0.125 MG ORAL TABLET DISINTEGRATIN G 1 tab by mouth every 4 hours as needed HYOSCYAMINE SULFATE 70321387066 Active Rebecca Elder Active HYDROCODONE-ACETAMINOPHEN 10-325 MG/15ML ORAL SOLUTION 1 tab by mouth every 4 hours as needed HYDROCODONE-ACETAMINOPHEN 05310100360 Active Da adonay Elder Active Advance Directives [...]
--- OUTSIDE RECORDS SUMMARY | 2020-04-14 15:34 | XMS REPORT | Clinical Summary ---
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 Conditions or Problems Problem Name Problem Code Onset Date Status Entry Date Provider Comment Standard Description Annotate Problems Unknown Active Medication List Medication Instructions Start Date Stop Date Generic Name NDC Status Provider Patient Instruction IBUPROFEN 200 MG ORAL TABLET 1 tab by mouth daily every 6 hours as needed IBUPROFEN 03641901518 Active Rebecca Elder Active 8 HOUR PAIN RELIEVER 650 MG ORAL TABLET EXTENDED RELEA SE 1 tab by mouth every 8 hours as needed ACETAMINOPHEN 87510535041 Active Rebecca Elder Active ADULT ASPIRIN REGIMEN 81 MG ORAL TABLET DELAYED RELEASE 1 tab by mouth daily ASPIRIN 70173215560 Active Rebecca Elder Active NITROSTAT 0.4 MG SUBLINGUAL TABLET SUBLINGUAL 1 tab un simin tounge every 5 minutes as needed for chest pain NITROGLYCERIN 74943488526 Active Rebecca Elder Active LISINOPRIL 20 MG ORAL TABLET 1 tablet by mouth daily LISINOPRIL 42142973535 Active Rebecca Elder Active HYDROCODONE-ACETAMINOPHEN 5-325 MG ORAL TABLET 1 tab b y mouth every 4 hours as needed HYDROCODONE-ACETAMINOPHEN 23878813332 Active Rebecca Luque r Active EC-NAPROSYN 500 MG ORAL TABLET DELAYED RELEASE 1 tab by mouth twice daily NAPROXEN 59236640855 Active Rebecca Elder Active ATORVASTATIN CALCIUM 40 MG ORAL TABLET 1 nightly, for cholesterol ATORVASTATIN CALCIUM 32146965528 Active Rebecca Elder Active HYOSCYAMINE SULFATE 0.125 MG ORAL TABLET DISINTEGRATIN G 1 tab by mouth every 4 hours as needed HYOSCYAMINE SULFATE 95863829970 Active Rebecca Elder Active HYDROCODONE-ACETAMINOPHEN 10-325 MG/15ML ORAL SOLUTION 1 tab by mouth every 4 hours as needed HYDROCODONE-ACETAMINOPHEN 90169565924 Active Da adonay Elder Active Vital Signs Date Name Value Unit Range Description blood pressure, diastolic 76 mm[Hg] BP chavez blood pressure, systolic 138 mm[Hg] BP sys height E&M 75 [in_us] Bdy height pulse rate E&M 72 /min Heart rate temperature E&M 98.3 [degF] Body temp erature weight E&M 260 [lb_av] Weight Measure d
--- OUTSIDE RECORDS SUMMARY | 2020-04-14 15:34 | XMS REPORT | Clinical Summary ---
Author Author Admin, Talha Delvalle Organization [facility] Talha Address Unknown Phone Unavailable Allergies, [...] daily every 6 hours as needed IBUPROFEN 28049379028 Active Rebecca Elder Active 8 HOUR PAIN RELIEVER 650 MG ORAL TABLET EXTENDED RELEA SE 1 tab by mouth every 8 hours as needed ACETAMINOPHEN 02113903733 Active Rebecca Elder Active ADULT ASPIRIN REGIMEN 81 MG ORAL TABLET DELAYED RELEASE 1 tab by mouth daily ASPIRIN 65110814542 Active Rebecca Elder Active NITROSTAT 0.4 MG SUBLINGUAL TABLET SUBLINGUAL 1 tab un simin tounge every 5 minutes as needed for chest pain NITROGLYCERIN 93218790941 Active Rebecca Elder Active LISINOPRIL 20 MG ORAL TABLET 1 tablet by mouth daily LISINOPRIL 84566358045 Active Rebecca Elder Active HYDROCODONE-ACETAMINOPHEN 5-325 MG ORAL TABLET 1 tab b y mouth every 4 hours as needed HYDROCODONE-ACETAMINOPHEN 04258110289 Active Rebecca Luque r Active EC-NAPROSYN 500 MG ORAL TABLET DELAYED RELEASE 1 tab by mouth twice daily NAPROXEN 18611204306 Active Rebecca Elder Active ATORVASTATIN CALCIUM 40 MG ORAL TABLET 1 nightly, for cholesterol ATORVASTATIN CALCIUM 12897684471 Active Rebecca Elder Active HYOSCYAMINE SULFATE 0.125 MG ORAL TABLET DISINTEGRATIN G 1 tab by mouth every 4 hours as needed HYOSCYAMINE SULFATE 19269936594 Active Rebecca Elder Active HYDROCODONE-ACETAMINOPHEN 10-325 MG/15ML ORAL SOLUTION 1 tab by mouth every 4 hours as needed HYDROCODONE-ACETAMINOPHEN 22342691483 Active Da adonay Higginbotham Active Vital Signs Date Name Value Unit Range Description blood pressure, diastolic 76 mm[Hg] BP chavez blood pressure, systolic 138 mm[Hg] BP sys height E&M 75 [in_us] Bdy height pulse rate E&M 72 /min Heart rate temperature E&M 98.3 [degF] Body temp erature weight E&M 260 [lb_av] Weight Measure d
--- OUTSIDE RECORDS SUMMARY | 2020-04-14 15:34 | XMS REPORT | Clinical Summary ---
Demographics Home Phone Preferred Language Unknown Marital Status Unknown Confucianist Affiliation Unknown Race Unknown Ethnic Group Unknown Author Author Talha Street Organization [facility] Talha Address Unknown Phone Unavailable Allergies, Adverse Reactions, Alerts Allergy Name Reaction Description Start Date Severity Status Pr ovider Allergies Unknown Conditions or Problems Problem Name Problem Code Onset Date Status Entry Date Provider Comment Standard Description Annotate Problems Unknown Active Medication List Medication Instructions Start Date Stop Date Generic Name NDC Status Provider Patient Instruction IBUPROFEN 200 MG ORAL TABLET 1 tab by mouth daily every 6 hours as needed IBUPROFEN 64623482650 Active Rebecca Elder Active 8 HOUR PAIN RELIEVER 650 MG ORAL TABLET EXTENDED RELEA SE 1 tab by mouth every 8 hours as needed ACETAMINOPHEN 53556111287 Active Rebecca Elder Active ADULT ASPIRIN REGIMEN 81 MG ORAL TABLET DELAYED RELEASE 1 tab by mouth daily ASPIRIN 87329294574 Active Rebecca Elder Active NITROSTAT 0.4 MG SUBLINGUAL TABLET SUBLINGUAL 1 tab un simin tounge every 5 minutes as needed for chest pain NITROGLYCERIN 71913154590 Active Rebecca Elder Active LISINOPRIL 20 MG ORAL TABLET 1 tablet by mouth daily LISINOPRIL 94714559354 Active Rebecca Elder Active HYDROCODONE-ACETAMINOPHEN 5-325 MG ORAL TABLET 1 tab b y mouth every 4 hours as needed HYDROCODONE-ACETAMINOPHEN 95576432217 Active Rebecca Elaiden r Active EC-NAPROSYN 500 MG ORAL TABLET DELAYED RELEASE 1 tab by mouth twice daily NAPROXEN 52578735073 Active Rebecca Elder Active ATORVASTATIN CALCIUM 40 MG ORAL TABLET 1 nightly, for cholesterol ATORVASTATIN CALCIUM 09379376753 Active Rebecca Elder Active HYOSCYAMINE SULFATE 0.125 MG ORAL TABLET DISINTEGRATIN G 1 tab by mouth every 4 hours as needed HYOSCYAMINE SULFATE 53805095890 Active Rebecca Elder Active HYDROCODONE-ACETAMINOPHEN 10-325 MG/15ML ORAL SOLUTION 1 tab by mouth every 4 hours as needed HYDROCODONE-ACETAMINOPHEN 71733666371 Active Da adonay Higginbotham Active
--- NOTE | 2020-04-14 15:44 | Diagnostic Imaging Report ---
EXAMINATION: Right hand radiographs, 4 views. COMPARISON: None. HISTORY: 44-year-old male, injury to the fifth digit two days ago. FINDINGS: There is no identified acute fracture. There is no radiopaque foreign body. There is no subluxation or dislocation. Joint spaces appear well preserved. IMPRESSION: No acute bony abnormality of the right hand. Dictated by: Dictated on workstation # [id number]
[2020-04-14] MEDS ORDERED: DICL75TA2 PO (16:10)
[2020-04-14 16:20] VITALS: BP 138/86
== END 2020-04-14 16:20 | disposition home or self-care (01) ==
LOC: EDUNIT# 15:19 → ER FS 15:21
DX: S63.91XA Sprain of unspecified part of right wrist and hand, initial encounter (principal); I10 Essential (primary) hypertension; E78.00 Pure hypercholesterolemia, unspecified; Z79.82 Long term (current) use of aspirin; W19.XXXA Unspecified fall, initial encounter; Y92.59 Other trade areas as the place of occurrence of the external cause
CPT/HCPCS: 73130

== ENCOUNTER 2020-04-15 16:43 | Emergency (ER) | payer BC ==
[~2020-04-15 16:43] MED LIST changes: +DICL75TA2 PO
--- NOTE | 2020-04-15 17:05 | ED Chest Pain ---
General Chief Complaint: Chest Pain Stated Complaint: HIGH BLOOD PRESSURE,SOB Source: patient Exam Limitations: no limitations (MARIA G BORJA DO) History of Present Illness Date Seen by Provider: Apr 15, 2020 Time Seen by Provider: 17:00 Initial Comments Patient presents with onset of chest pain about one hour prior to arrival, he took one nitroglycerin and his symptoms improved significantly and on arrival chest pain is nearly resolved. Patient with significant history of coronary artery disease with last stents placed about 5 years ago at [facility] in [facility]. Patient admits to some shortness of air intermittent over the last 2 days, he rarely gets chest pain and rarely has to take nitroglycerin. He saw his primary doctor this morning with some concerns of his blood pressure was appropriately told that if he got chest pain or increased blood pressure to come to the ER. Denies any radiation of pain, denies back or abdominal pain. Denies shortness of air at rest or any swelling of extremities. (MARIA G BORAJ DO) Allergies and Home Medications Allergies Coded Allergies: No Known Drug Allergies (Unverified , 03/31/12) Home Medications Aspirin 325 Mg Tablet.dr, 325 MG PO, (Reported) Atorvastatin 20 Mg Tablet, 20 MG PO HS, (Reported) Diclofenac Sodium 75 Mg Tablet.dr, 75 MG PO BID Prescribed by: ALAN PARADA on 04/14/20 1610 Doxycycline Hyclate 100 Mg Capsule, 100 MG PO BID, (Reported) Lisinopril 20 Mg Tab, 20 MG PO DAILY, (Reported) Ondansetron Hcl 8 Mg/Tab Tab.rapdis, 8 MG PO Q6H Prescribed by: NASEEM GLOVER on 12/06/12 1738 Patient Home Medication List Home Medication List Reviewed: Yes (MARIA G BORJA DO) Review of Systems Review of Systems Constitutional: see HPI; No dizziness, No fever, No malaise, No weakness Respiratory: See HPI; Denies Cough; Shortness of Air, SOA With Exertion; Denies SOA at Rest Cardiovascular: See HPI, Chest Pain; Denies Edema, Denies Irregular Heart Rate, Denies Lightheadedness, Denies Palpitations, Denies Syncope Gastrointestinal: Denies Abdomen Distended, Denies Abdominal Pain, Denies Nausea, Denies Vomiting Musculoskeletal: No back pain, No joint pain Skin: No change in color, No lesions, No rash Psychiatric/Neurological: Denies Numbness, Denies Paresthesia (ROVENSTINE,MARIA G L DO) Past Thdoyyy-Dqezar-Iyizyz Hx Past Med/Social Hx: Reviewed Nursing Past Med/Soc Hx (MARVINVENSTINEZOLTANMARIA G L DO) Patient Social History 2nd Hand Smoke Exposure: No Recent Foreign Travel: No Contact w/Someone Who Travel: No Recent Hopitalizations: No (ROVENSTINE,MARIA G L DO) Immunizations Up To Date Date of Pneumonia Vaccine: Nov 08, 2008 Date of Influenza Vaccine: Nov 08, 2011 (ROVENSTINE,MARIA G L DO) Past Medical History Surgeries: Yes (hernia, knee surgery, neck surgery) Abdominal, Appendectomy, Gallbladder, Orthopedic Respiratory: No Cardiac: Yes High Cholesterol, Hypertension Neurological: Yes (spine fusion surgery twice) Reproductive Disorders: No Sexually Transmitted Disease: No HIV/AIDS: No Genitourinary: No Gastrointestinal: Yes Musculoskeletal: No Endocrine: No HEENT: No Cancer: No Psychosocial: No Integumentary: No Blood Disorders: No Adverse Reaction/Blood Tranf: No (ROVENSTINE,MARIA G L DO) Physical Exam Vital Signs Vital Signs - First Documented 04/15/20 16:49 Temp 36.3 Pulse 101 Resp 16 B/P (MAP) 148/127 (134) Pulse Ox 95 (GLENDY DE JESUS DO) Vital Signs Capillary Refill : Less Than 3 Seconds (ROVENSTINE,MARIA G L DO) Height, Weight, BMI Height: '" Weight: lbs. oz. kg; 36.00 BMI Method:Stated General Appearance: No Apparent Distress, WD/WN HEENT: Normal ENT Inspection Neck: Full Range of Motion, Normal Inspection, Non Tender, Supple Respiratory: Chest Non Tender, Lungs Clear, Normal Breath Sounds, No Accessory Muscle Use, No Respiratory Distress Cardiovascular: Regular Rate, Rhythm, No Edema, No Gallop, No JVD, No Murmur, Normal Peripheral Pulses Gastrointestinal: Non Tender, Soft Extremity: Normal Capillary Refill, Normal Inspection, Non Tender, No Calf Tenderness, No Pedal Edema Neurologic/Psychiatric: Alert, Oriented x3, Normal Mood/Affect Skin: Normal Color, Warm/Dry (ROVENSTINE,MARIA G L DO) General Appearance: No Apparent Distress, WD/WN HEENT: Normal ENT Inspection, Pharynx Normal Neck: Full Range of Motion, Normal Inspection, Non Tender, Supple Respiratory: Chest Non Tender, Lungs Clear, Normal Breath Sounds, No Accessory Muscle Use, No Respiratory Distress Cardiovascular: Regular Rate, Rhythm, No Edema, No JVD Gastrointestinal: Non Tender, Soft Extremity: Normal Capillary Refill, Normal Inspection, Non Tender, No Calf Tenderness Neurologic/Psychiatric: Alert, Oriented x3, Normal Mood/Affect Skin: Normal Color, Warm/Dry (GLENDY DE JESUS DO) Progress/Results/Core Measures Results/Orders Lab Results Laboratory Tests Test 04/15/20 17:05 04/15/20 18:59 Range/Units White Blood Count 11.9 H 4.3-11.0 10^3/uL Red Blood Count 5.50 4.35-5.85 10^6/uL Hemoglobin 16.8 13.3-17.7 G/DL Hematocrit 48 40-54 % Mean Corpuscular Volume 88 80-99 FL Mean Corpuscular Hemoglobin 31 25-34 PG Mean Corpuscular Hemoglobin Concent 35 32-36 G/DL Red Cell Distribution Width 13.0 10.0-14.5 % Platelet Count 267 130-400 10^3/uL Mean Platelet Volume 10.6 H 7.4-10.4 FL Neutrophils (%) (Auto) 57 42-75 % Lymphocytes (%) (Auto) 28 12-44 % Monocytes (%) (Auto) 11 0-12 % Eosinophils (%) (Auto) 3 0-10 % Basophils (%) (Auto) 1 0-10 % Neutrophils # (Auto) 6.8 1.8-7.8 X 10^3 Lymphocytes # (Auto) 3.3 1.0-4.0 X 10^3 Monocytes # (Auto) 1.4 H 0.0-1.0 X 10^3 Eosinophils # (Auto) 0.4 H 0.0-0.3 10^3/uL Basophils # (Auto) 0.1 0.0-0.1 10^3/uL Sodium Level 139 135-145 MMOL/L Potassium Level 4.0 3.6-5.0 MMOL/L Chloride Level 102 98-107 MMOL/L Carbon Dioxide Level 22 21-32 MMOL/L Anion Gap 15 H 5-14 MMOL/L Blood Urea Nitrogen 11 7-18 MG/DL Creatinine 0.96 0.60-1.30 MG/DL Estimat Glomerular Filtration Rate > 60 BUN/Creatinine Ratio 11 Glucose Level 92 70-105 MG/DL Calcium Level 9.5 8.5-10.1 MG/DL Corrected Calcium 9.4 8.5-10.1 MG/DL Total Bilirubin 0.4 0.1-1.0 MG/DL Aspartate Amino Transf (AST/SGOT) 31 5-34 U/L Alanine Aminotransferase (ALT/SGPT) 31 0-55 U/L Alkaline Phosphatase 75 40-136 U/L Troponin I < 0.30 <0.30 NG/ML Total Protein 7.4 6.4-8.2 GM/DL Albumin 4.1 3.2-4.5 GM/DL (GLENDY DE JESUS DO) My Orders Orders - GLENDY DE JESUS DO Probnp Fs (04/15/20 18:37) (GLENDY DE JESUS DO) Medications Given in ED Current Medications Medications Dose Ordered Sig/Karie Route Start Time Stop Time Status Last Admin Dose Admin Aspirin 324 mg ONCE ONCE PO 04/15/20 17:15 04/15/20 17:16 DC 04/15/20 17:21 324 MG Nitroglycerin 0.4 mg NEEDED PRN SL 04/15/20 17:45 04/15/20 17:57 0.4 MG (GLENDY DE JESUS DO) Vital Signs/I&O 04/15/20 16:49 Temp 36.3 Pulse 101 Resp 16 B/P (MAP) 148/127 (134) Pulse Ox 95 (GLENDY DE JESUS DO) Progress Progress Note : Time: 17:40 Progress Note Reevaluation prior to shift change, patient asked regarding chest pain and he states that he is having "just a little". Asked him on a scale of 1-10, however he states that his pain as a 7 out of 10. Explain that we wanted to know if he was having any further chest pain he reiterates that bad. I explained that I wanted to get his chest pain under control and would prefer he not having any chest pain if possible. Also states that if were going to transfer him, he wants [facility] in [place]. 1800- Transfer of care to Dr. De Jesus at shift change. Patient presentation, history of present illness and past medical history discussed. Also discussed lab work and pending delta troponin at 1900 hours. (MARIA G BORJA DO) Progress Note : Progress Note @1920 - the patient reports that his pain is now a 2 or 3 out of 10 after the nitroglycerin area he is updated on his lab and imaging results and is agreeable to observation overnight. His preferred facility is still [facility]. I discussed the case with the transfer line and spoke to Dr. Palacio who agrees to accept the patient to a telemetry bed at their facility. (GLENDY DE JESUS DO) Initial ECG Impression Time: 17:00 Initial ECG Rate: 103 Initial ECG Rhythm: Normal Sinus Initial ECG Intervals: Normal Initial ECG Impression: Normal (MARIA G BORJA DO) Departure Impression Primary Impression: Chest pain Qualified Codes: R07.9 - Chest pain, unspecified Additional Impression: Personal history of coronary artery disease Disposition: XFER SHT-TRM HOSP Condition: Stable Transfer Transfer Reason: Patient preference Time Spoke to Accepting Phy: 19:[address] Palacio at [facility] in [place] accepts the transfer to a telemetry bed Transfer Time: 19:40 Transfer Facility: [facility] Method of Transfer: EMS (GLENDY DE JESUS DO) Departure-Patient Inst. Referrals: [facility] [place] (PCP) Primary Care Physician ANAND GROVER APRN (Family) Primary Care Physician MARIA G BORJA DO Apr 15, 2020 17:05 GLENDY DE JESUS DO Apr 15, 2020 19:13
[2020-04-15] MEDS ORDERED: ASPIRIN 81 MG CHEW (CHILDREN'S ASA) PO ONE (17:15)
--- NOTE | 2020-04-15 17:19 | Diagnostic Imaging Report ---
INDICATION: Chest pain. Frontal chest obtained at 05:09 p.m. and compared to 05/06/2012. There is cardiomegaly. There is central vascular congestion with some mild perihilar edema. There is no consolidation, pneumothorax, or pleural fluid. IMPRESSION: Cardiomegaly and central vascular congestion. Mild interstitial edema. Dictated by: Dictated on workstation # [id number]
[2020-04-15 17:38] LABS: ALANINE AMINOTRANSFERASE 31 U/L (0-55); ALBUMIN 4.1 GM/DL (3.2-4.5); ALKALINE PHOSPHATASE 75 U/L (40-136); BILIRUBIN,TOTAL 0.4 MG/DL (0.1-1.0); BUN/CREATININE RATIO 11; CALCIUM 9.5 MG/DL (8.5-10.1); CARBON DIOXIDE 22 MMOL/L (21-32); CHLORIDE 102 MMOL/L (98-107); CREATININE SERUM 0.96 MG/DL (0.60-1.30); GFR ESTIMATED > 60; GLUCOSE 92 MG/DL (70-105); SODIUM 139 MMOL/L (135-145); TOTAL PROTEIN 7.4 GM/DL (6.4-8.2)
[2020-04-15 17:39] LABS: BASOPHILS % (AUTO) 1 % (0-10); EOSINOPHILS % (AUTO) 3 % (0-10); HEMATOCRIT 48 % (40-54); HEMOGLOBIN 16.8 G/DL (13.3-17.7); LYMPHOCYTES % (AUTO) 28 % (12-44); MEAN CORPUSCULAR HEMOGLOBIN 31 PG (25-34); MEAN CORPUSCULAR HGB CONC 35 G/DL (32-36); MEAN CORPUSCULAR VOLUME 88 FL (80-99); MEAN PLATELET VOLUME 10.6 FL (7.4-10.4); MONOCYTES % (AUTO) 11 % (0-12); PLATELET COUNT 267 10^3/uL (130-400); WHITE BLOOD COUNT 11.9 10^3/uL (4.3-11.0)
[2020-04-15 17:40] LABS: BASOPHILS # (AUTO) 0.1 10^3/uL (0.0-0.1); EOSINOPHILS # (AUTO) 0.4 10^3/uL (0.0-0.3); LYMPHOCYTES # (AUTO) 3.3 X 10^3 (1.0-4.0); MONOCYTES # (AUTO) 1.4 X 10^3 (0.0-1.0); NEUTROPHILS # (AUTO) 6.8 X 10^3 (1.8-7.8); NEUTROPHILS % (AUTO) 57 % (42-75)
[2020-04-15] MEDS ORDERED: NITROGLYCERIN 0.4 MG SL TABS BTL 25'S SL PRN (17:45)
[2020-04-15] MEDS ORDERED: meTOprolol 5 MG/5 ML (LOPRESSOR) VIAL ONE (20:51)
[2020-04-15] MEDS ORDERED: meTOprolol 5 MG/5 ML (LOPRESSOR) VIAL IV ONE (21:00)
[2020-04-15 21:57] VITALS: BP 177/118
--- OUTSIDE RECORDS SUMMARY | 2020-04-15 22:51 | XMS REPORT | Encounter Summary ---
Author Author [facility] Organization [facility] Address Unknown Phone Unavailable Care Team Providers Care Rate Clerk Name Role Phone Miguelina Devi SIMONE PCP Encounter Details Care Team Description Date [place] [address] [address] 03/04/2020 Orders Only [facility] [address] [address] Social History Date Tobacco Use [...]
--- OUTSIDE RECORDS SUMMARY | 2020-04-15 22:51 | XMS REPORT ---
Author Author [facility] [employer] Organization [facility] [place] [facility] Address [address] [address] Care Team Providers Care Classer Name Role Phone ROBGARETTMarv BECKIE Gonzalez Unavailable CALDERON SAHU APRN Unavailable Unavailable OTHER, UNLISTED Unavailable Unavailable ANAND GROVER S Unavailable Unavailable BREANNA STONE MD Unavailable Unavailable [facility] Unavailable Oma vailable Beckie Patel Unavailable Unavailable GEORGETTE, RITA Unavailable Unavailable GEORGETTE, RITA Unavailable Unavailable GEORGETTE, RITA Unavailable Unavailable BROWN, CLAIRE Unavailable Unavailable BROWN, CLAIRE Unavailable Unavailable BROWN, CLAIRE Unavailable Unavailable LUIS ALBERTO DIRECTOR OF OUTREACH CALDERON DIRECTOR OF OUTREACH Unavailable Unavailable REILLY NATHAN AMANDA S Unavailable Unavailable [facility] PCP Unavailable Unavailable Unavailable Unavailable Unavailable Unavailable Unavailable Unavailable Unavailable Unavailable Unavailable Unavailable Allergies Normalized Allergy Reported Date of Reaction(s) Care Provider Facility Allergy Type classification allergen Allergy Onset DA (8 Unclassified No Known Drug 03-31-2012 - no information BREANNA STONE , Not Available sources.) Allergies (60731) Medications Current Medications Medication Ingredient Drug Dose Dates Status Sig Sig Care Class(es) (Normalized) (Original) Provid er no Aspirin Platelet Active no Aspirin no information Translation Aggregation information Active [address] (11 s: [ ADULT Inhibitor, ORAL as sources.) ASPIRIN Nonsteroida needed REGIMEN 81 l MG ORAL Anti-inflam TABLET matory Drug DELAYED RELEASE] 12-06-2012 Completed no Aspirin no name inform Disconti ation nued 81 ORAL Daily December 06, 2012 03-31-2012 Completed no Aspirin no name inform Disconti ation nued 325 ORAL Daily March 31, 2012 81 mg no take 1 ADULT Rebecca information tablet ASPIRIN Elder by REGIMEN (no mouth 81 MG phone) once ORAL daily TABLET DELAYED RELEASE 1 tab by mouth daily ASPIRIN [id number] Active Rebecca Elder Active diclofenac Diclofenac Nonsteroida 04-14-20 Active no Diclofe nac no sodium 75 l 20 information Sodium name mg delayed Anti-inflam Active 75 release matory Drug ORAL Twice A oral tablet 10 (1 source.) April 14, 2020 4:10pm no Ondansetron Serotonin-3 12-06-19 Active no Ondansetro n no information Receptor 13 information Hcl Active 8 name (1 source.) Antagonist ORAL Every 6 Hours December 06, 2012 5:38pm Completed/Discontinued Medications Medication Ingredient Drug Dose Dates Status [...] every 8 hours as needed ACETAMINOPHE N [id number] Active Rebecca Elder Active acetaminoph Acetaminoph Opioid [...] as MG/15ML needed SOLN] HYDROCODONE- ACETAMINOPHE N 97479048179 Active Rebecca Elder Active no take 1 HYDROCOD Rebecca information tablet ONE-ACET Elder by AMINOPHE (no mouth N 5-325 phone) every MG ORAL four TABLET 1 hours tab by as mouth needed every 4 hours as needed HYDROCOD ONE-ACET AMINOPHE N [id number] 301 Active Rebecca Elder Active hyoscyamine Hyoscyamine no 0.125 12-15-19 no take 1 HYO SCYAMINE Rebecca sulfate information mg 19 informat tablet by SULFATE El simin 0.125 mg ion mouth every 0.125 MG (no disintegrat four hours ORAL TABLET phone) ing oral as needed DISINTEGRATI tablet (8 NG 1 tab by sources.) mouth every 4 hours as needed HYOSCYAMINE SULFATE 45107178007 Active Rebecca Elder Active ibuprofen Ibuprofen Nonsteroida 200 mg no take 1 IBUPROFEN Rebecca 200 mg oral l informat tablet by 200 MG ORAL Elder tablet (8 Anti-inflam ion mouth every TABLET 1 tab (no sources.) matory Drug six hours as by mouth phone) needed daily every 6 hours as needed IBUPROFEN 12014201441 Active Rebecca Elder Active no Isosorbide Nitrate 03-31-20 Complete no Isosorbide n o information Vasodilator 12 d information Mononitr ate name (1 source.) Discontinued 60 ORAL Daily March 31, 2012 naproxen Naproxen Nonsteroida 500 mg no take 1 EC-NAPROSYN Rebecca 500 mg Translation l informat tablet by 500 MG ORAL El simin delayed s: [ Anti-inflam ion mouth twice TABLET ( no release EC-NAPROSYN matory Drug daily DELAYED phone) oral tablet 500 MG ORAL RELEASE 1 (8 TABLET tab by mouth sources.) DELAYED twice daily RELEASE] NAPROXEN [id number] Active Rebecca Elder Active no Nitroglycer Nitrate 03-31-20 Complete no Nitroglyceri no information in Vasodilator 12 d information n name (9 Translation Discontinued sources.) s: [ 0.5 ORAL NITROSTAT Daily March 0.4 MG 2011 SUBLINGUAL TABLET SUBLINGUAL] 0.4 mg no no NITROSTA Rebecca information inform T 0.4 MG Elder ation SUBLINGU (no AL phone) TABLET SUBLINGU AL 1 tab under tounge every 5 minutes as needed for chest pain NITROGLY CERIN [id number] 813 Active Rebecca Elder Active no Omeprazole Proton Pump 03-31-20 Complete no Omeprazol e no information Inhibitor 12 d information Discontinu ed name (1 source.) 20 ORAL Daily March 31, 2012 Problems Active Problems Problem Normalized Date Last Normalized Normalized Provider Fa cility Classification Problem(s) Recorded Problem Problem Sta tus Duration Other Arthrodesis Episodic Active DARCI KAUR V ia connective status [facility] tissue disease [facility] - (1 source.) [place] ([address]) Spondylosis; Cervicalgia Episodic Active VC Adelia KAUR Via intervertebral [facility] [place] disc [facility] - disorders; [place] other back (18753) problems (1 source.) Contraceptive Encounter for Episodic Active CALDERON LUIS ALBERTO No t Available and fertility (13650) procreative testing management (5 sources.) Other No current no information Active [facility] screening for problems or LLC - Shira Palencia suspected disability (47721) (Work conditions Phone: (not mental disorders or ) infectious disease) (8 sources.) Residual Other Episodic Active ANAND GROVER [facility] Via codes; specified DIRECTOR OF OUTREACH [place] unclassified [facility] - (1 source.) [facility] (20551) Other Pain in joint, Episodic Active CLAIRE BROWN [facility] non-traumatic shoulder [facility] region [place] disorders ([place] ([address]689) sources.) Other Pain in left Episodic Active CLAIRE BROWN Hospi [facility] non-traumatic shoulder [facility] joint [place] disorders ([place] ([address]) sources.) Past or Other Problems Problem Normalized Date Last Normalized Normalized Provider Fa cility Classification Problem(s) Recorded Problem Problem Sta tus Duration Nonspecific Chest pain, Episodic Completed BREANNA BAQIR , Not A vailable chest pain (2 unspecified MD (28681) sources.) Other Long-term Episodic Completed BREANNA BAQIR , Not Avail able aftercare (2 (current) use MD (70356) sources.) of other medications Procedures The data below is from unstructured sourcesNo procedure information available.No procedure information available.No procedure information available. Immunizations The data below is from unstructured sources Immunization Event Date Not Given Reason Dose Number [employer] Lot Number Vaccine Information Statement (VIS) Deta il Results Test Name Value Interpretation Reference Range Date Time Fa cility (Normalized) (Normalized) (Medline Reference) laboratory on 2019-10-30 Albumin 4.5 g/dL (N) 3.4 - 5.4 g/dL [facility] [Mass/Vol] [facility] (24031) Albumin/Globulin 1.6 {ratio} (N) 1 - 2.5 {ratio} Comm [facility] [Mass ratio] [facility] (61751) ALP [Catalytic 85 U/L (N) 44 - 147 U/L [facility] activity/Vol] [facility] (60609) ALT [Catalytic 16 U/L (N) 4 - 40 U/L [facility] activity/Vol] [facility] (59777) AST [Catalytic 19 U/L (N) 10 - 34 U/L [facility] activity/Vol] [facility] (35900) Basophils (Bld) 0.27 10*3/uL (H) 0 - 0.3 10*3/uL [facility] [#/Vol] [facility] (70504) Basophils/100 2.9 % (N) 0.5 - 1 % [facility] WBC (Bld) [facility] (36159) Bilirubin 0.4 mg/dL (N) 0.1 - 1.2 mg/dL [facility] [Mass/Vol] [facility] (71883) Calcium 10.0 mg/dL (N) 8.5 - 10.2 mg/dL [facility] [Mass/Vol] [facility] (78782) Chloride 106 mmol/L (N) 95 - 106 mmol/L [facility] [Moles/Vol] [facility] (85950) CO2 [Moles/Vol] 25 mmol/L (N) 23 - 29 mmol/L [facility] (33579) Creatinine 1.01 mg/dL (N) [facility] h [Mass/Vol] [facility] (50150) Eosinophils 0.363 10*3/uL (N) 0.05 - 0.5 [facility] (Bld) [#/Vol] 10*3/uL [facility] (96375) Eosinophils/100 3.9 % (N) 1 - 4 % [facility] WBC (Bld) [facility] (58263) Erythrocyte 13.0 % (N) 11.6 - 14.6 % [facility] distribution [facility] (RBC) [facility] [Ratio] (81336) GFR/1.73 sq M 103 (N) 90 - 120 [facility] predicted among mL/min/{1.73_m2} mL/min/{1.73_m2} [place] [facility] blacks MDRD [facility] (S/P/Bld) [Vol (48569) rate/Area] GFR/1.73 sq 89 (N) 90 - 120 [facility] M.predicted MDRD mL/min/{1.73_m2} mL/min/{1.73_m2} [facility] (S/P/Bld) [Vol [facility] rate/Area] (17351) Globulin (S) 2.8 g/dL (N) 2 - 3.5 g/dL [facility] [Mass/Vol] [facility] (09706) Glucose 84 mg/dL (N) 60 - 125 mg/dL [facility] [Mass/Vol] [facility] (03413) Hematocrit (Bld) 50.3 % (H) 36.1 - 50.3 % [facility] [Volume [facility]] [facility] (96451) Hemoglobin (Bld) 17.5 g/dL (H) 12.1 - 17.2 g/dL [facility] [Mass/Vol] [facility] (20974) Lymphocytes 2.437 10*3/uL (N) 0.9 - 2.9 [facility] (Bld) [#/Vol] 10*3/uL [facility] (06748) Lymphocytes/100 26.2 % (N) 20 - 40 % [facility] WBC (Bld) [facility] (09486) MCH (RBC) 30.6 pg (N) 27 - 31 pg [facility] [Entitic mass] [facility] (21667) MCHC (RBC) 34.8 g/dL (N) 32 - 36 g/dL [facility] [Mass/Vol] [facility] (28649) MCV (RBC) 87.9 fL (N) 80 - 100 fL [facility] [Entitic vol] [facility] (36017) Monocytes (Bld) 0.902 10*3/uL (N) 0.3 - 0.9 [facility] [#/Vol] 10*3/uL [facility] (19313) Monocytes/100 9.7 % (N) 2 - 8 % [facility] WBC (Bld) [facility] (52264) Neutrophils 5.329 10*3/uL (N) 1.7 - 7 10*3/uL [facility] (Bld) [#/Vol] [facility] (82872) Neutrophils/100 57.3 % (N) 40 - 60 % [facility] WBC (Bld) [facility] (25448) Platelet mean 11.1 fL (N) 7.2 - 11.7 fL [facility] volume (Bld) [facility] [Entitic vol] [facility] (78162) Platelets (Bld) 277 10*3/uL (N) 150 - 450 [facility] [#/Vol] 10*3/uL [facility] (25492) Platelets LM Ql ADEQUATE (N) [facility] th (Bld) [facility] (14081) Potassium 4.2 mmol/L (N) 3.7 - 5.2 mmol/L [facility] [Moles/Vol] [facility] (25964) Protein 7.3 g/dL (N) 6.4 - 8.3 g/dL [facility] [Mass/Vol] [facility] (44522) RBC (Bld) 5.72 10*6/uL (N) 4.2 - 6.1 [facility] [#/Vol] 10*6/uL [facility] (03611) Sodium 138 mmol/L (N) 135 - 145 mmol/L [facility] [Moles/Vol] [facility] (10259) Urea nitrogen 12 mg/dL (N) 7 - 20 mg/dL [facility] [Mass/Vol] [facility] (76338) Urea NOT APPLICABLE (no code) [facility] h nitrogen/Creatin [facility] [Mass ratio] [facility] (06994) WBC (Bld) 9.3 10*3/uL (N) 3.5 - 10.5 [facility] [#/Vol] 10*3/uL [facility] (83587) thyroid on 2019-03-13 Free T4 1.4 ng/dL (N) 0.9 - 2.2 ng/dL [facility] [Mass/Vol] [facility] (14506) TSH Qn 1.07 m[IU]/L (N) 0.4 - 4 m[IU]/L [facility] (23144) other on 2019-03-13 Albumin/Globulin 1.5 (N) [facility] lth [Mass ratio] [facility] (30560) Cholesterol non 166 (H) [facility] HDL [Mass/Vol] [facility] (98357) Cholesterol.tota 5.4 (H) [facility] lt l/Cholesterol in [facility] HDL [Mass ratio] [facility] (68892) Erythrocyte 13.8 % (N) 11.6 - 14.6 % [facility] ealth distribution [facility] width (RBC) [facility] [Ratio] (99809) GFR/1.73 sq 92 (N) 90 - 120 [facility] M.predicted MDRD mL/min/{1.73_m2} mL/min/{1.73_m2} [facility] (S/P/Bld) [Vol [facility] rate/Area] (98939) Globulin (S) 3.0 (N) [facility] [Mass/Vol] [facility] (24328) MCHC (RBC) 33.4 g/dL (N) 32 - 36 g/dL [facility] [Mass/Vol] [facility] (61858) Platelet mean 11.3 fL (N) 7.2 - 11.7 fL [facility] volume (Bld) [facility] [Entitic vol] [facility] (28707) Service comment no information (no code) [facility] (Unsp spec) [facility] [Interp] [facility] (58866) Sex hormone 65 nmol/L (H) [facility] binding globulin [facility] [Moles/Vol] [facility] (59210) Testosterone 702 ng/dL (no code) [facility] [Mass/Vol] [facility] (11732) TESTOSTERONE, 53.8 (no code) [facility] FREE [facility] (07356) TESTOSTERONE,BIO 113.0 (no code) [facility] lt AVAILABLE [facility] (26128) metabolic panel on 2019-03-13 Albumin 4.4 g/dL (N) 3.4 - 5.4 g/dL [facility] [Mass/Vol] [facility] (05196) ALP [Catalytic 82 U/L (N) 44 - 147 U/L [facility] activity/Vol] [facility] (79493) ALT [Catalytic 20 U/L (N) 4 - 40 U/L [facility] activity/Vol] [facility] (90319) AST [Catalytic 24 U/L (N) 10 - 34 U/L [facility] activity/Vol] [facility] (68215) Bilirubin 0.6 mg/dL (N) 0.1 - 1.2 mg/dL [facility] [Mass/Vol] [facility] (76874) Calcium 9.8 mg/dL (N) 8.5 - 10.2 mg/dL [facility] [Mass/Vol] [facility] () Chloride 105 mmol/L (N) 95 - 106 mmol/L [facility] [Moles/Vol] [facility] () CO2 [Moles/Vol] 25 mmol/L (N) 23 - 29 mmol/L [facility] (97399) Creatinine 0.99 mg/dL (N) [facility] [Mass/Vol] [facility] (62524) GFR/1.73 sq M 106 (N) 90 - 120 [facility] predicted among mL/min/{1.73_m2} mL/min/{1.73_m2} [facility] [place] MDRD [facility] (S/P/Bld) [Vol (76773) rate/Area] Glucose 90 mg/dL (N) 60 - 125 mg/dL [facility] [Mass/Vol] [facility] (76330) Potassium 4.3 mmol/L (N) 3.7 - 5.2 mmol/L [facility] [Moles/Vol] [facility] () Protein 7.4 g/dL (N) 6.4 - 8.3 g/dL [facility] [Mass/Vol] [facility] (67544) Sodium 139 mmol/L (N) 135 - 145 mmol/L [facility] [Moles/Vol] [facility] () Urea nitrogen 8 mg/dL (N) 7 - 20 mg/dL [facility] [Mass/Vol] [facility] (16343) Urea NOT APPLICABLE (no code) [facility]/Creatin [facility] [Mass ratio] [facility] (82067) hematology on 2019-03-13 Basophils (Bld) 0 10*3/uL (N) 0 - 0.3 10*3/uL [facility] [#[facility] (68938) Basophils/100 0 % (N) 0.5 - 1 % [facility] WBC (Bld) [facility] (28953) Eosinophils 0.258 10*3/uL (N) 0.05 - 0.5 [facility] alth (Bld) [#/Vol] 10*3/uL [facility] (84082) Eosinophils/100 4.1 % (N) 1 - 4 % [facility] WBC (Bld) [facility] (09219) Hematocrit (Bld) 51.2 % (H) 36.1 - 50.3 % [facility] [Volume [facility]] [facility] (13452) Hemoglobin (Bld) 17.1 g/dL (N) 12.1 - 17.2 g/dL [facility] [Mass/Vol] [facility] (87967) Lymphocytes 2.123 10*3/uL (N) 0.9 - 2.9 [facility] alth (Bld) [#/Vol] 10*3/uL [facility] (35691) Lymphocytes/100 33.7 % (N) 20 - 40 % [facility] WBC (Bld) [facility] (10854) MCH (RBC) 29.4 pg (N) 27 - 31 pg [facility] [Entitic mass] [facility] (82991) MCV (RBC) 88.1 fL (N) 80 - 100 fL [facility] [Entitic vol] [facility] (53716) Monocytes (Bld) 1.027 10*3/uL (H) 0.3 - 0.9 [facility] [#/Vol] 10*3/uL [facility] (89088) Monocytes/100 16.3 % (N) 2 - 8 % [facility] WBC (Bld) [facility] (39273) Neutrophils 2.892 10*3/uL (N) 1.7 - 7 10*3/uL [facility] (Bld) [#/Vol] [facility] (71140) Neutrophils/100 45.9 % (N) 40 - 60 % [facility] WBC (Bld) [facility] (51254) Platelets (Bld) 246 10*3/uL (N) 150 - 450 [facility] [#/Vol] 10*3/uL [facility] (02881) Platelets LM Ql ADEQUATE (N) [facility] th (Bld) [facility] (38921) RBC (Bld) 5.81 10*6/uL (H) 4.2 - 6.1 [facility] lth [#/Vol] 10*6/uL [facility] (64659) WBC (Bld) 6.3 10*3/uL (N) 3.5 - 10.5 [facility] [#/Vol] 10*3/uL [facility] (36077) cardiac on 2019-03-13 Cholesterol 204 mg/dL (H) 180 - 200 mg/dL [facility] [Mass/Vol] [facility] (24641) Cholesterol in 38 mg/dL (L) [facility] h HDL [Mass/Vol] [facility] (88822) Cholesterol in 146 (H) [facility] h LDL [Mass/Vol] [facility] (37383) Triglyceride 95 mg/dL (N) 0 - 150 mg/dL [facility] [Mass/Vol] [facility] (53201) Vital Signs Vital Sign Value Interpretation Reference Date Time Care Prov ider Facility (Normalized) (Normalized) Range Body 98.3 [degF] (no code) 97.8 - 99.0 01-13-2019 [facility] Admin [facility] Temperature [degF] 13:00-0500 [facility] - Shira Palencia (43712) (Work Phone: ) Body weight 117.94 kg (no code) kg 01-13-2019 QIE Admin A [facility] 13:00-0500 [place] [place] (24347) (Work Phone: ) Blood Pressure 138/ (no code) Systolic: 90 - 01-13-2019 [facility] Admin [facility] 76mm[Hg] 120 mm[Hg] 13:00-0500 [place] [place] (40785) (Work Diastolic: 60 Phone: - 80 mm[Hg] ) Height 190.5 cm (no code) cm 01-13-2019 QIE Admin [facility] 13:00-0500 [place] [facility] [place] (87697) (Work Phone: ) Pulse (Heart 72 /min (no code) 60 - 100 /min 01-13-2019 QIE Adm in [facility] Rate) 13:00-0500 [place] [place] (80365) (Work Phone: ) Interventions No Information Plan of Treatment Normalized Care Care Detail Care Activity Date Care Provider F acility Activity Patient Education Contusion (DC) no information [facility] [place] [address] [address] (Work Phone: [facility] ) (34771) Patient referral no information no information [facility] [place] [address] [address] (Work Phone: [facility] ) (53178) Goals Patient Goal Desired Goal no information no information Social History Normalized Code Original Code Date Value Tobacco smoking status Tobacco smoking status no information Never smoked tobacco NHIS NHIS (finding) no information no information 12-06-2012 Denies Use no information no information 12-06-2012 No no information no information 12-06-2012 Denies no information no information 04-14-2020 Never a Smoker Sex Assigned At Sex Assigned At no information M minh Functional Status The data below is from unstructured sourcesNo functional status information available.No Functional Status information availableNo Functional Status information available Mental Status The data below is from unstructured sourcesNo Mental Status Information Available Encounters Encounter Normalized Encounter Encounter Diagnosis Care Provi simin Organization Date Type 04-14-2020 Emergency department no information (no phone) As [facility] patient visit Hospital (no phone) 04-14-2020 12-29-2019 Patient encounter no information ANAND S REILLY APR N [facility] [place] procedure (no phone) [facility] rg REILLY (no phone) (no phone) 12-07-2019 [...] procedure 11-19-2016 Patient encounter no information CALDERON DIRECTOR OF OUTREACH LUIS ALBERTO A PRN [facility] [place] - procedure (no phone) [facility] 02-16-2017 (no phone) 03-31-2012 Patient encounter no information no name no or ganization name - procedure 03-31-2012 Patient encounter no information no name no organizat ion name procedure Medical Equipment The data below is from unstructured sourcesNo Medical Equipment Information available Payers Normalized Payer Value [facility] [id number] [facility] no information ([id number]) Private Health Insurance no information Evaluation note Note Type Note Facility Evaluation No Assessments Information Available A scension note Via [facility] (41049) Advance Directives Directive Response Recor ded Date/Time Advance Directives No 2:49pm Health Care Power of Coke Crane Operator No 12/06/12 2:49pm Organ Donor Yes 12/06/12 2:49pm Directive Description Start Date PERMISSION TO SHARE Advance Directive Response Recorded Date/Time Advance Directives No 2019 3:24pm Health Care Power of Coke Crane Operator No April 14, 2020 3:24pm Organ Donor Yes April 3:24pm Resuscitation Status Full Code April 14, 2020 3:24pm Discharge Instructions No hospital discharge instruction information available. Chief Complaint and Reason for Visit Chief Complaint Upper Extremity Reason for Visit [id number] Additional Source Comments This clinical document has been generated using [employer] software that has been certified by the Office of the National Coordinator for Health Information Technology (ONC 15.99.04.3023.Diam.31.00.0.501888) and the National Committee for Surfacer Operator (NCQA, as an eMeasure certified technology). FOR [...] BASED ON T HE PRIMARY CLINICAL RECORDS. [employer] provides no warranty or guara ntee of the accuracy or completeness of information in this document.The followi ng information is based on time limited clinical information
--- OUTSIDE RECORDS SUMMARY | 2020-04-15 22:51 | XMS REPORT | Continuity of Care Document ---
Author Organization Unknown Address Unknown Phone Unavailable Allergies Active Description Code Type Severity Reaction Onset Reported/Identified Relationship to Patient Clinical Status Yes No Known Drug Allergies [id number] Drug Allergy Unknown N/A 03/31/2012 Medications There is no data. Problems Date Dx Coded Attending Type Code Diagnosis Diagnosed By 06/19/2010 401.1 ESSE NTIAL HYPERTENSION BENIGN 06/19/2010 414.9 MYOC ARDIAL ISCHEMIA CHRONIC 06/19/2010 789.09 chin in (inguinal) pain bilaterally 03/31/[address] PAIN NOS 03/31/2012 Ot V58.69 OTH MED,LT,CURRENT USE 11/20/[address] NAPHTHALENE OPERATOR Ot Z31.4 1 ENCOUNTER FOR FERTILITY TESTING 11/23/[address] NAPHTHALENE OPERATOR Ot Z31.4 1 ENCOUNTER FOR FERTILITY TESTING 12/11/2016 LUIS ALBERTO CALDERON NAPHTHALENE OPERATOR Ot Z31.4 1 ENCOUNTER FOR FERTILITY TESTING 12/23/2016 LUIS ALBERTO CALDERON NAPHTHALENE OPERATOR Ot Z31.4 1 ENCOUNTER FOR FERTILITY TESTING 02/17/2017 LUIS ALBERTO CALDERON NAPHTHALENE OPERATOR Ot Z31.4 1 ENCOUNTER FOR FERTILITY TESTING 05/28/2019 W 719.41 ESTER N IN JOINT INVOLVING SHOULDER REGION 05/28/2019 W M25.512 PA IN IN LEFT SHOULDER 01/22/2020 ANAND GROVER NAPHTHALENE OPERATOR Ot M54.2 CERVICALGIA 01/22/2020 ANAND GROVER NAPHTHALENE OPERATOR Ot Z98.1 ARTHRODESIS STATUS 01/22/2020 ANAND GROVER NAPHTHALENE OPERATOR Ot Z98.890 OTHER SPECIFIED POSTPROCEDURAL STATES Procedures [...] 7-25 CREATININE 1.01 mg/dL 0.60-1.35 eGFR NON-AFR. MALAWIAN 89 mL/min/1.73m2 > OR = 60 eGFR [...] Status Pt. Type Provider Facility Loc./Unit Complaint [id number] 06/02/2019 20:08:05 ACT Unknown [id number] 05/30/2019 13:12:00 05/30/2019 23:59: 00 DIS Outpatient RITA PALOMINO [id number] 05/30/2019 09:47:00 05/30/2019 23:59: 00 DIS Outpatient RITA PALOMINO [id number] 05/28/2019 09:23:00 Document Registration [id number] 12/29/2019 14:20:00 12/29/2019 23:59:[address] [facility] Outpatient ANAND GROVER [facility] [id number] 10/30/2019 08:40:00 Document Registration [id number] 03/13/2019 08:15:00 Document Registration [id number] 06/03/2019 00:38:35 ACT Document Registration [id number] 04/15/2020 16:44:00 22:37:00 DIS Emergency LIZA PIKE DO [facility] FS HIGH BLOOD PRESSURE,SOB [id number] 04/14/2020 15:21:00 06/07/2 020 16:20:00 DIS Emergency KARMA KINNEY, ALAN Davis [facility] FS RT HAND INJ [id number] 12/29/2019 14:59:00 020 23:59:59 CLS Outpatient REILLY ANANDANA Connors APRN [facility] FS M54.2 [id number] 02/18/2017 00:16:00 017 23:59:59 CLS Preadmit CALDERON SAHU APRN V [facility] LAB ENCOUNTER FOR FERTILITY [id number] 11/19/2016 14:43:00 017 00:01:00 DIS Outpatient CALDERON SAHU APRN [facility] LAB ENCOUNTER FOR FERTILITY [id number] 03/31/2012 06:55:00 Document Registration [id number] 06/19/2010 09:52:00 06/19/2010 23:59: 59 CLS Outpatient
--- OUTSIDE RECORDS SUMMARY | 2020-04-15 22:51 | XMS REPORT | Encounter Summary ---
Author Author [facility] Organization [facility] Address Unknown Phone Unavailable Care Team Providers Care Process Maintenance Technician Name Role Phone ShandraMiguelina jara SIMONE PCP Reason for Visit * Reason Comments Appointment Encounter Details Care Team Description [place] [address] [place] [id number] Appointment 03/06/2020 Telephone [facility] [address] [place] [id number] Social History Date Tobacco Use Types [...] number left as well as information about [employer] portal. documented in this encounter Plan of Treatment Not on filedocumented as of this encounter Visit Diagnoses Not on filedocumented in this encounter
--- OUTSIDE RECORDS SUMMARY | 2020-04-15 22:51 | XMS REPORT | Encounter Summary ---
Author Author [facility] Organization [facility] Address Unknown Phone Unavailable Care Team Providers Care Infrastructure Software Engineer Name Role Phone ShandraMiguelina jara SIMONE PCP Reason for Visit * Reason Comments Skin Problem * (Routine) Referred By Contact Referred To Contact Status Reason Specialty Diagnoses / Procedures Self, Referral Incomplete Encounter Details Care Team Description Date Type Department Victorino Yates MD [address] [facility] [address] [place], [place] [id number] Virgil Franklin MD [address] [place] [address] Dermatosis (Primary Dx) 11/17/2019 Office Visit [facility] [address] [place] [address] Social History Date Tobacco Use [...] (277 lb 12.8 oz) 11/17/2019 12:53 PM PHLEBOTOMIST ASSOCIATE Weight 190.5 cm (6' 3") 11/17/2019 12:53 PM PHLEBOTOMIST ASSOCIATE Height 34.72 11/17/2019 12:53 PM PHLEBOTOMIST ASSOCIATE Body Mass Index documented in this encounter [...] Victorino Yates MD - 11/17/2019 1:00 PM PHLEBOTOMIST ASSOCIATE ATTESTATION I personally performed the woo portions of the E/M visit, discussed case with re sident and concur with resident documentation of history, physical exam, assessm ent, and treatment plan unless otherwise noted. 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 Use as wash to skin folds. [place] if let sit at least 5 min [...] ext L lower ext Pertinent findings include: Roosevelt multilobulated granulomatous smooth plaques in right inguinal [...] - Photodocumented today for chart RTC PRN BOTOMIST ASSOCIATE documented in this encounter Plan of Treatment Not on filedocumented as of this encounter Visit Diagnoses Diagnosis Dermatosis Unspecified disorder of skin and subcut aneous tissue documented in this encounter
--- OUTSIDE RECORDS SUMMARY | 2020-04-15 22:51 | XMS REPORT | Continuity of Care Document ---
Author Author BioActorHERMELINDO Organization [facility] Address Unknown Phone Unavailable Care Team Providers Care Community Relations Representative Name Role Phone [facility] Unavailable Unavailable Problems Problem Status Onset Date Classification Date Reported Comments Source Past Medical History Unknown Diagnosis 01/21/2012 [facility] CERVICALGIA Active [facility] BRACHIAL NEURITIS OR RADICULITIS NOS Active [facility] Medications Medication Details Route Status Patient Instructions Ordering Provider Order Date Source Lortab 5/500 1 TAB, PO, 4 time s a day, 10/26/11 11:22:13 PO Ordered CLIFFT 10/08 [facility] Allergies, Adverse Reactions, Alerts No Known Medication Allergies Immunizations No Data Provided for This Section Results Order Name Results Value Reference Range Date Interpretation Comments Source CSF Protein CSF 30 mg/dL 15 - 45 10/28/2011 [facility] er CSF Glucose CSF 63 mg/dL 40 - 70 10/28/2011 [facility] er CSF Color CSF Colorless <b r/>(10/28/2011 08:30:00) <sup> </sup> Colorless 10/28/2011 [facility] CSF RBC CSF 17 /mm3 <=5 10/28/2011 HI [facility] CSF WBC CSF 4 /mm3 <=5 10/28/2011 [facility] CSF Volume CSF 1.0 mL 10/28/2011 NA [facility] CSF Appear CSF Clear
( 10/28/2011 08:30:00) <sup> </sup> Clear 10/28/2011 [facility] CSF Differential? CSF No
( 08:30:00) <sup> </sup> 10/28/2011 [facility] UNK UNK [facility] Pathology Reports No Data Provided for This Section Diagnostic Reports No Data Provided for This Section Consultation Notes No Data Provided for This Section Discharge Summaries No Data Provided for This Section History and Physicals No Data Provided for This Section Vital Signs Vital Sign Value Date Comments Source Inet NIBP Diastolic 95 mmHg 10/28/2011 [facility] Inet NIBP Systolic 139 mmHg 10/28/2011 [facility] Heart Rate 89 bpm 10/28/2011 [facility] er Heart Rate Location Auto BP (1 12/29/2010 09:00:00) 10/28/2011 [facility] Respiratory Rate 18 br/min 10/28/2011 [facility] NIBP MAP Calc 110 10/28/2011 [facility] er BP Location Arm, right (2010 09:00:00) 10/28/2011 [facility] Temp Method Oral (10/28/2011 0 9:00:00) 10/28/2011 [facility] Temperature 97 DegF 10/28/2011 [facility] er Encounters Location Location Details Encounter Type Encounter Number Reason For Visit Attending Provider ADM Date DC Date Status Source [facility] OP In A Bed [id number] NECK PAIN BILATERAL AR M PAIN NING AHMADI 10/28/2011 [facility]/28[facility] Jose Tran MD 10/21/2011 Active [facility] [id number] Laisha Tran 10/21/2011 [facility] Procedures Procedure Code Date Perfomer Comments Source Contrast myelogram [id number] 10/28/2011 [facility] Muscle test, 2 limbs 41704 10/21/2011 [facility] Motor nerve conduction test 95 903 10/21/2011 [facility] Sense nerve conduction test 95 904 10/21/2011 [facility] Plan of Care No Data Provided for This Section Social History Social History Date Source Social History ElementDescriptionQuantit y Unknown 01/21/2012 [facility] Assessment and Plan No Data Provided for This Section Family History Value Date S ource Family MemberDiagnosisAge At OnsetStatus Unknown 01/21/2012 [facility] Advance Directives Order Name Results Value Date Source Advance Directives Advance Dir ectives DirectiveEffective Date Unknown 01/21/2012 [facility] Functional Status No Data Provided for This Section
--- OUTSIDE RECORDS SUMMARY | 2020-04-15 22:51 | XMS REPORT | Clinical Summary ---
Author Author [facility] Address Unknown Phone Unavailable Care Team Providers Care Decal Cutter Name Role Phone Miguelina Devi NP PCP Source Comments Some departments are not documenting in the electronic medical record. If you d o not see the information that you expected, contact Release of Information in [facility] Information Management department at [phone] for further assistan ce in locating additional records.[facility] Allergies No Known Allergies Medications End Date [...] weekly. Use as wash to skin folds. [place] if let sit at least 5 min [...] be observation. 2. Request outside pathology for social media intern al review 3. I do not see any reason for cross-se ctional imaging at this point in time. His MRI of the abdomen fortunate ly showed that his renal lesion was benign-appearing and consistent with a simple cyst. No further follow-up was recommended. 4. 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
== END 2020-04-15 22:37 | disposition short-term general hospital (02) ==
LOC: EDUNIT# 16:43 → ER FS 16:44
DX: R07.9 Chest pain, unspecified (principal); I25.10 Atherosclerotic heart disease of native coronary artery without angina pectoris; I10 Essential (primary) hypertension; E78.00 Pure hypercholesterolemia, unspecified; Z95.5 Presence of coronary angioplasty implant and graft; Z79.82 Long term (current) use of aspirin; Z90.49 Acquired absence of other specified parts of digestive tract
CPT/HCPCS: 36415; 71045; 80053; 83880; 84484; 85025; 93005

== ENCOUNTER 2020-06-12 17:46 | Observation (INO) | payer BC ==
[~2020-06-12] VITALS: Ht 190.5 cm; Wt 129.0 kg
[2020-06-12] MEDS ORDERED: PANT40TA3 PO (18:28)
[2020-06-12] MEDS ORDERED: ATOR40TA70 PO (18:28)
[2020-06-12] MEDS ORDERED: CARV12.53 PO (18:28)
[2020-06-12] MEDS ORDERED: ASPI-875 PO (18:28)
[2020-06-12] MEDS ORDERED: LISI-552 PO (18:28)
[2020-06-12] MEDS ORDERED: AMLO5TAB9 (18:28)
[2020-06-12] MEDS ORDERED: NS IV 1000 ML 1,000 ML IV SCH (18:30)
[2020-06-12] MEDS ORDERED: ONDANSETRON 4 MG/2 ML (SDV) Z0FRAN IVP ONE (18:30)
[2020-06-12] MEDS ORDERED: ACETAMINOPHEN 500 MG TAB (TYLENOL) PO ONE (18:30)
[2020-06-12] MEDS ORDERED: KETOROLAC 30 MG/ML VIAL IVP ONE (18:30)
[2020-06-12 18:56] LABS: BASOPHILS # (AUTO) 0.1 10^3/uL (0.0-0.1); BASOPHILS % (AUTO) 1 % (0-10); EOSINOPHILS # (AUTO) 0.3 10^3/uL (0.0-0.3); EOSINOPHILS % (AUTO) 2 % (0-10); HEMATOCRIT 45 % (40-54); HEMOGLOBIN 15.3 G/DL (13.3-17.7); LYMPHOCYTES # (AUTO) 0.8 X 10^3 (1.0-4.0); LYMPHOCYTES % (AUTO) 6 % (12-44); MEAN CORPUSCULAR HEMOGLOBIN 30 PG (25-34); MEAN CORPUSCULAR HGB CONC 34 G/DL (32-36); MEAN CORPUSCULAR VOLUME 88 FL (80-99); MEAN PLATELET VOLUME 10.5 FL (7.4-10.4); MONOCYTES # (AUTO) 2.2 X 10^3 (0.0-1.0); MONOCYTES % (AUTO) 18 % (0-12); NEUTROPHILS # (AUTO) 8.8 X 10^3 (1.8-7.8); NEUTROPHILS % (AUTO) 73 % (42-75); PLATELET COUNT 224 10^3/uL (130-400); RED CELL DISTRIBUTION WIDTH 12.8 % (10.0-14.5); WHITE BLOOD COUNT 12.1 10^3/uL (4.3-11.0)
--- NOTE | 2020-06-12 19:00 | NUR ---
Temp is now 38.7 tympanic. Pt work up is started and RN dismissed self from room to doff PPE. Pt was cordially thanked for his choice to use [facility] and will have night nurse resume care and introduce self soon. Pt is ST on monitor 106-107 currently with NS wide open. Review meds per eMAR.
--- NOTE | 2020-06-12 19:07 | ED General ---
General Chief Complaint: Fever-Adult/Adol Stated Complaint: SOB,FEVER Nursing Triage Note: Pt presents per POV sent from [facility] for pt presenting with high fever and exposure to mother with positive COVID test notification today. 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 [facility] has swabbed pt for COVID. No treatment for fever, mild cough, and general malaise. Nursing Sepsis Screen: Possible Severe Sepsis Risk History of Present Illness Date Seen by Provider: Jun 12, 2020 Time Seen by Provider: 19:07 Initial Comments Patient presenting to emergency department for evaluation of cough fever shortness of breath headache chills in the setting of known COVID-19 exposure. His mother tested positive for COVID-19 and he cares for her and has not been isolating his started getting symptoms earlier this afternoon. His cough is nonproductive. He says the cough makes him feel short of breath. He has a fever of 102.2 here. He went to the urgent care before coming here and they said his oxygen saturation was 91-93%. He says that he has no medical problems and takes no medications on a regular basis. 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 He is overweight but otherwise denies any other medical problems. He was swabbed for COVID at the urgent care. He is in no obvious distress however he is slightly tachycardic at 110 and has an oxygen saturation ranges from 93% to 96% while I'm in the room talking to him. Allergies and Home Medications Allergies Coded Allergies: No Known Drug Allergies (Unverified , 03/31/12) Home Medications Aspirin 81 Mg Tablet.dr, 81 MG PO DAILY, (Reported) Patient Home Medication List Home Medication List Reviewed: Yes Review of Systems Review of Systems Constitutional: no symptoms reported, chills, fever, malaise EENTM: no symptoms reported Respiratory: cough, short of breath Cardiovascular: no symptoms reported Gastrointestinal: no symptoms reported Genitourinary: no symptoms reported Musculoskeletal: joint pain, muscle pain Skin: no symptoms reported Psychiatric/Neurological: Headache All Other Systems Reviewed Negative Unless Noted: Yes Past Myhakvl-Lajonl-Llfslu Hx Patient Social History Alcohol Use: Denies Use Recreational Drug Use: No Smoking Status: Never a Smoker 2nd Hand Smoke Exposure: No Recent Foreign Travel: No Contact w/Someone Who Travel: No Recent Infectious Disease Expo: Yes Recent Hopitalizations: No Physical Abuse: No Sexual Abuse: No Mistreated: No Fear: No Immunizations Up To Date Date of Pneumonia Vaccine: Nov 08, 2008 Date of Influenza Vaccine: Nov 08, 2011 Seasonal Allergies Seasonal Allergies: No Past Medical History Surgeries: Yes (hernia, knee surgery, neck surgery) Abdominal, Appendectomy, Coronary Stent, Gallbladder, Orthopedic Respiratory: No Cardiac: Yes (Heart cath, denies stenting) High Cholesterol, Hypertension Neurological: Yes (spine fusion surgery twice) Reproductive Disorders: No Sexually Transmitted Disease: No HIV/AIDS: No Genitourinary: No Gastrointestinal: Yes Musculoskeletal: No Endocrine: No HEENT: No Cancer: No Psychosocial: No Integumentary: No Blood Disorders: No Adverse Reaction/Blood Tranf: No Physical Exam Vital Signs Vital Signs - First Documented 06/12/20 18:05 Temp 39.0 Pulse 111 Resp 20 B/P (MAP) 134/71 (92) Pulse Ox 94 O2 Delivery Room Air Capillary Refill : Less Than 3 Seconds Height, Weight, BMI Height: '" Weight: lbs. oz. kg; 39.00 BMI Method:Stated General Appearance: No Apparent Distress HEENT: PERRL/EOMI Neck: Supple Respiratory: No Respiratory Distress, Wheezing Cardiovascular: Normal Peripheral Pulses, Tachycardia Extremity: Normal Capillary Refill Neurologic/Psychiatric: Alert, Oriented x3 Skin: Warm/Dry Progress/Results/Core Measures Suspected Sepsis Recent Fever Within 48 Hours: Yes Infection Criteria Present: Suspected New Infection New/Unexplained Altered Menta: No Sepsis Screen: Possible Severe Sepsis Risk SIRS Temperature: Pulse: 111 Respiratory Rate: 20 Laboratory Tests 06/12/20 18:38: White Blood Count 12.1H Blood Pressure 134 /71 Mean: 92 Laboratory Tests 06/12/20 18:38: Creatinine 1.21, INR Comment 1.0, Platelet Count 224, Total Bilirubin 1.0 Results/Orders Lab Results Laboratory Tests Test 06/12/20 18:38 Range/Units White Blood Count 12.1 H 4.3-11.0 10^3/uL Red Blood Count 5.10 4.35-5.85 10^6/uL Hemoglobin 15.3 13.3-17.7 G/DL Hematocrit 45 40-54 % Mean Corpuscular Volume 88 80-99 FL Mean Corpuscular Hemoglobin 30 25-34 PG Mean Corpuscular Hemoglobin Concent 34 32-36 G/DL Red Cell Distribution Width 12.8 10.0-14.5 % Platelet Count 224 130-400 10^3/uL Mean Platelet Volume 10.5 H 7.4-10.4 FL Neutrophils (%) (Auto) 73 42-75 % Lymphocytes (%) (Auto) 6 L 12-44 % Monocytes (%) (Auto) 18 H 0-12 % Eosinophils (%) (Auto) 2 0-10 % Basophils (%) (Auto) 1 0-10 % Neutrophils # (Auto) 8.8 H 1.8-7.8 X 10^3 Lymphocytes # (Auto) 0.8 L 1.0-4.0 X 10^3 Monocytes # (Auto) 2.2 H 0.0-1.0 X 10^3 Eosinophils # (Auto) 0.3 0.0-0.3 10^3/uL Basophils # (Auto) 0.1 0.0-0.1 10^3/uL Neutrophils % (Manual) 63 % Lymphocytes % (Manual) 10 % Monocytes % (Manual) 14 % Eosinophils % (Manual) 6 % Basophils % (Manual) 0 % Band Neutrophils 7 % Blood Morphology Comment NORMAL Prothrombin Time 13.9 12.2-14.7 SEC INR Comment 1.0 0.8-1.4 Activated Partial Thromboplast Time 22 L 24-35 SEC D-Dimer 0.19 0.00-0.49 UG/ML Sodium Level 133 L 135-145 MMOL/L Potassium Level 3.8 3.6-5.0 MMOL/L Chloride Level 100 98-107 MMOL/L Carbon Dioxide Level 22 21-32 MMOL/L Anion Gap 11 5-14 MMOL/L Blood Urea Nitrogen 17 7-18 MG/DL Creatinine 1.21 0.60-1.30 MG/DL Estimat Glomerular Filtration Rate > 60 BUN/Creatinine Ratio 14 Glucose Level 97 70-105 MG/DL Calcium Level 9.5 8.5-10.1 MG/DL Corrected Calcium 9.3 8.5-10.1 MG/DL Magnesium Level 1.7 1.6-2.4 MG/DL Total Bilirubin 1.0 0.1-1.0 MG/DL Aspartate Amino Transf (AST/SGOT) 28 5-34 U/L Alanine Aminotransferase (ALT/SGPT) 31 0-55 U/L Alkaline Phosphatase 97 40-136 U/L Troponin I < 0.30 <0.30 NG/ML Total Protein 7.4 6.4-8.2 GM/DL Albumin 4.2 3.2-4.5 GM/DL My Orders Orders - ABA ADKINS DO Cbc With Automated Diff (06/12/20 18:23) Comprehensive Metabolic Panel (06/12/20 18:23) Magnesium (06/12/20 18:23) Fibrin Degradation Products (06/12/20 18:23) Partial Thromboplastin Time (06/12/20 18:23) Protime With Inr (06/12/20 18:23) Troponin I Fs (06/12/20 18:23) Blood Culture (06/12/20 18:23) Chest 1 View Ap/Pa Only (06/12/20 18:23) Blood Culture (06/12/20 18:25) Iv/Invasive Line Insertion .IV start (06/12/20 18:23) Dexamethasone Injection (Decadron Inje (06/12/20 18:30) Acetaminophen Tablet (Tylenol Tablet) (06/12/20 18:30) Ns Iv 1000 Ml (Sodium Chloride 0.9%) (06/12/20 18:30) Ondansetron Injection (Zofran Injectio (06/12/20 18:30) Ketorolac Injection (Toradol Injection) (06/12/20 18:30) Manual Differential (06/12/20 18:38) Coronavirus Sars-Cov-2 So 2018 (06/12/20 19:36) Medications Given in ED Current Medications Medications Dose Ordered Sig/Karie Route Start Time Stop Time Status Last Admin Dose Admin Acetaminophen 1,000 mg ONCE ONCE PO 06/12/20 18:30 06/12/20 18:31 DC 06/12/20 18:54 1,000 MG Dexamethasone Sodium Phosphate 6 mg ONCE ONCE IV 06/12/20 18:30 06/12/20 18:31 DC 06/12/20 18:52 6 MG Ketorolac Tromethamine 15 mg ONCE ONCE IVP 06/12/20 18:30 06/12/20 18:32 DC 06/12/20 18:53 15 MG Ondansetron HCl 4 mg ONCE ONCE IVP 06/12/20 18:30 06/12/20 18:31 DC 06/12/20 18:53 4 MG Vital Signs/I&O 06/12/20 06/12/20 06/12/20 06/12/20 18:05 18:53 18:54 19:00 Temp 39.0 38.7 38.7 38.7 Pulse 111 Resp 20 B/P (MAP) 134/71 (92) Pulse Ox 94 O2 Delivery Room Air Capillary Refill : Less Than 3 Seconds Blood Pressure Mean: 92 Progress Note : Progress Note Patient certainly does have COVID-19 given the classic physical symptoms and noted lymphopenia on blood work. I continue to monitor him and his heart rate did not go below 110 as it stayed in the 110 to 1:15 range and his option saturation continued arrange slightly on the lower side anywhere from 92-95%. I had extensive discussion with patient regarding his classic symptoms and risk factors for poor outcome. Patient will be transferred to [facility] for further monitoring given his obesity and abnormal vital signs. He was given Decadron here in addition to Toradol Tylenol and IV fluids and his heart rate still do not improve. I spoke to Dr. Santana and she agreed to admit patient for further observation and treatment. Departure Impression Primary Impression: Viral pneumonia Disposition: ADMITTED INPATIENT Condition: Unchanged Transfer Transfer Reason: Exceeds level of care Transfer Facility: [facility] Method of Transfer: EMS Departure-Patient Inst. Referrals: [facility] (PCP) Primary Care Physician ANAND GROVER APRN (Family) Primary Care Physician ABA ADKINS DO Jun 12, 2020 19:07
[2020-06-12 19:12] LABS: PROTHROMBIN TIME PATIENT 13.9 SEC (12.2-14.7)
[2020-06-12 19:13] LABS: ALANINE AMINOTRANSFERASE 31 U/L (0-55); ALKALINE PHOSPHATASE 97 U/L (40-136); BUN/CREATININE RATIO 14; CALCIUM 9.5 MG/DL (8.5-10.1); CARBON DIOXIDE 22 MMOL/L (21-32); CHLORIDE 100 MMOL/L (98-107); CREATININE SERUM 1.21 MG/DL (0.60-1.30); FIBRIN DEGRADATION PRODUCTS 0.19 UG/ML (0.00-0.49); GFR ESTIMATED > 60; GLUCOSE 97 MG/DL (70-105); MAGNESIUM 1.7 MG/DL (1.6-2.4); POTASSIUM 3.8 MMOL/L (3.6-5.0); SODIUM 133 MMOL/L (135-145)
[2020-06-12 19:14] LABS: ALBUMIN 4.2 GM/DL (3.2-4.5); BAND NEUTROPHILS 7 %; BASOPHILS % (MANUAL) 0 %; EOSINOPHILS % (MANUAL) 6 %; LYMPHOCYTES % (MANUAL) 10 %; MONOCYTES % (MANUAL) 14 %; NEUTROPHILS % (MANUAL) 63 %; RBC MORPH NORMAL; TOTAL PROTEIN 7.4 GM/DL (6.4-8.2)
--- NOTE | 2020-06-12 19:25 | Diagnostic Imaging Report ---
INDICATION: Shortness of air, cough, COVID exposure. TECHNIQUE: Frontal view of the chest COMPARISON: 04/15/2020 FINDINGS: Lung volumes are mildly large. No focal consolidation is seen. There is no pleural effusion or pneumothorax. The cardiac silhouette is normal in size. Cervical spine fusion hardware is noted. IMPRESSION: 1. No acute pulmonary abnormality is seen. Dictated by: Dictated on workstation # [id number]
--- NOTE | 2020-06-12 22:09 | NUR ---
EMS ARRIVED FOR TRANSFER.
--- NOTE | 2020-06-12 22:25 | NUR ---
ATTEMPT TO CALL PT REPORT
--- NOTE | 2020-06-12 22:30 | NUR ---
2ND ATTEMPT TO CALL PT REPORT.
--- NOTE | 2020-06-12 23:05 | NUR ---
PAGE SHEIKH admitted to room 427-1, with an admitting diagnosis of VIRAL PNEUMONIA, on 06/12/20 from [place] via [facility], accompanied by EMS.PAGE SHEIKH introduced to surroundings, call light, bed controls, phone, TV, temperature control, lights, meal times, smoking policy, visitor policy, side rail policy, bathrooms and showers. Patient Rights given to patient in the handbook. PAGE SHEIKH verbalizes understanding that [facility] is not responsible for the loss or damage to any personal effects or valuables that are kept in the patients posession during their hospitalization. PAGE SHEIKH verbalizes understanding of Interdisciplinary Patient Education. Patient and/or family were informed about the Rapid Response Team and its purpose.
[2020-06-12 23:06] VITALS: BP 110/65
[2020-06-12] MEDS ORDERED: NS IV 1000 ML 1,000 ML ONE (23:35)
--- NOTE | 2020-06-12 23:35 | NUR ---
DR LUCERO CONTACTED REGARDING PT'S NAUSEA, PAIN, AND SHORTNESS OF BREATH, NEW ORDERS RECEIVED, SEE ORDER HX.
[2020-06-12] MEDS ORDERED: ONDANSETRON 4 MG/2 ML (SDV) Z0FRAN IVP PRN (23:45)
[2020-06-12] MEDS ORDERED: ACETAMINOPHEN 500 MG TAB (TYLENOL) PO PRN (23:45)
[2020-06-13] MEDS: fentaNYL INJECTION 100 MCG/2 ML AMP IVP PRN ×3 (00:03→10:00)
[2020-06-13] MEDS: NS IV 1000 ML 1,000 ML IV SCH ×3 (00:04→17:45)
[2020-06-13] MEDS: PROMETHAZINE INJ 25 MG/ML (PHENERGAN) AMP IVP PRN (00:06)
[2020-06-13] MEDS ORDERED: RT-ALBUTEROL INHALER HFA (VENTOLIN HFA) 18 GM IH PRN (01:00)
[2020-06-13 04:00] VITALS: BP_SYST 101; BP_SYST 93; BP_DIAS 55; BP_DIAS 70
[2020-06-13 05:53] LABS: BASOPHILS % (AUTO) 0 % (0-10); EOSINOPHILS % (AUTO) 0 % (0-10); HEMATOCRIT 42 % (40-54); HEMOGLOBIN 14.2 G/DL (13.3-17.7); LYMPHOCYTES # (AUTO) 0.7 X 10^3 (1.0-4.0); LYMPHOCYTES % (AUTO) 9 % (12-44); MEAN CORPUSCULAR HEMOGLOBIN 30 PG (25-34); MEAN CORPUSCULAR HGB CONC 34 G/DL (32-36); MEAN CORPUSCULAR VOLUME 89 FL (80-99); MEAN PLATELET VOLUME 11.1 FL (7.4-10.4); MONOCYTES # (AUTO) 0.7 X 10^3 (0.0-1.0); MONOCYTES % (AUTO) 8 % (0-12); NEUTROPHILS # (AUTO) 6.5 X 10^3 (1.8-7.8); NEUTROPHILS % (AUTO) 82 % (42-75); PLATELET COUNT 209 10^3/uL (130-400); RED CELL DISTRIBUTION WIDTH 13.3 % (10.0-14.5); WHITE BLOOD COUNT 7.9 10^3/uL (4.3-11.0)
[2020-06-13 06:23] LABS: ALBUMIN 3.8 GM/DL (3.2-4.5); BILIRUBIN,TOTAL 0.8 MG/DL (0.1-1.0); CALCIUM 8.8 MG/DL (8.5-10.1); CREATININE SERUM 1.4 MG/DL (0.60-1.30); TOTAL PROTEIN 6.9 GM/DL (6.4-8.2)
[2020-06-13 08:00] VITALS: BP 119/61
[2020-06-13 13:00] VITALS: BP 114/65
[2020-06-13] MEDS ORDERED: ENOXAPARIN 40 MG/0.4 ML (LOVENOX) SYR SC SCH (13:00)
[2020-06-13] MEDS: HYDROcodone/APAP 5 MG/325 MG (LORTAB) TAB PO PRN ×2 (14:09→21:14)
[2020-06-13] MEDS ORDERED: AMLO10TA7 PO (14:10)
[2020-06-13] MEDS ORDERED: NITR0.4T39 SL (14:10)
[2020-06-13] MEDS ORDERED: CLON0.1T PO (14:10)
[2020-06-13] MEDS ORDERED: LORA10TA76 PO (14:10)
[2020-06-13] MEDS ORDERED: KETO15CR2 TP (14:15)
[2020-06-13] MEDS ORDERED: ZINC57OI8 TP (14:15)
[2020-06-13] MEDS ORDERED: TR1O15 TP (14:15)
--- NOTE | 2020-06-13 14:16 | NUR ---
SPOKE WITH THE PT (I CALLED HIS ROOM PHONE) AND HE WAS NOT SURE OF HIS MEDICATIONS AND HE WANTED ME TO CALL HIS JEREMI. I CALLED JEREMI AND WENT THRU THE EXT MED HISTORY TO COMPLETE THE MED REC AMLODIPINE: THE LAST STRENGTH FILLED WAS 5MG AND THE PT HAS ALSO FILLED 10MG. JEREMI LET ME KNOW HE IS TAKING THE 10MG NOW AND HIS DR KEPT CHANGING THE DOSE AND THE 5MG THAT WAS FILLED WAS NOT CURRENT KETOCONAZOLE AND TRIAMCINOLONE WERE PICKED UP AT AND JEREMI SAID SHE MIXES THOSE 2 CREAMS WITH ZINC OXIDE TO CREATE A PASTE. THE PT USES NEEDED FOR A SWEAT INDUCED RASH OTC MEDS: ASPIRIN 81 LORATADINE
[2020-06-13 16:00] VITALS: BP 106/64
--- NOTE | 2020-06-13 18:51 | NUR ---
Notified Dominique DOMINGUEZ patient is positive for COVID.
--- NOTE | 2020-06-13 19:10 | History & Physical ---
HPI History of Present Illness: 45 yo M that started to have cough, shortness of breath and fever that started on Wednesday. Patient states that his mother tested positive for COVID on Wednesday. She had been having symptoms since last Wednesday. Patient states that he has become extremely weak the last few days and fever has been higher. He has continued to take his blood pressure medications and has not been eating or drinking normally. Source: patient, RN/MD Exam Limitations: no limitations Date seen by provider: Jun 13, 2020 Time Seen by Provider: 10:15 Attending Physician Masood Santana MD PCP Center/[facility] [place] Consult Date of Admission Jun 12, 2020 at 19:39 Home Medications Home Medications Reviewed patient Home Medication Reconciliation performed by pharmacy medication reconciliations cd technician and/or nursing. Patients Allergies have been reviewed. Allergies Coded Allergies: No Known Drug Allergies (Unverified , 03/31/12) NQF-Vvlatn-Iwmmhf Hx Patient Social History Alcohol Use: Denies Use Recreational Drug Use: No Smoking Status: Never a Smoker 2nd Hand Smoke Exposure: No Recent Foreign Travel: No Contact w/other who traveled: No Recent Hopitalizations: No Recent Infectious Disease Expo: Yes (Mother) Immunizations Up To Date Date of Pneumonia Vaccine: Nov 08, 2008 Date of Influenza Vaccine: Nov 08, 2011 Past Medical History HTN Family Medical History Significant Family History: No Pertinent Family Hx Review of Systems (CHC) Constitutional: chills, fever, malaise, weakness EENTM: nose congestion, other (loss of taste) Respiratory: cough, dyspnea on exertion Cardiovascular: no symptoms reported; No chest pain, No edema, No palpitations Gastrointestinal: No abdominal pain, No constipation, No diarrhea; loss of appetite; No nausea, No vomiting Genitourinary: no symptoms reported; No dysuria, No frequency, No hematuria Musculoskeletal: muscle pain (bilateral leg pain) Skin: rash (back) Psychiatric/Neurological: Headache Reviewed Test Results Reviewed Test Results Lab Laboratory Tests Test 06/12/20 19:43 06/13/20 05:25 Range/Units White Blood Count 7.9 4.3-11.0 10^3/uL Red Blood Count 4.72 4.35-5.85 10^6/uL Hemoglobin 14.2 13.3-17.7 G/DL Hematocrit 42 40-54 % Mean Corpuscular Volume 89 80-99 FL Mean Corpuscular Hemoglobin 30 25-34 PG Mean Corpuscular Hemoglobin Concent 34 32-36 G/DL Red Cell Distribution Width 13.3 10.0-14.5 % Platelet Count 209 130-400 10^3/uL Mean Platelet Volume 11.1 H 7.4-10.4 FL Neutrophils (%) (Auto) 82 H 42-75 % Lymphocytes (%) (Auto) 9 L 12-44 % Monocytes (%) (Auto) 8 0-12 % Eosinophils (%) (Auto) 0 0-10 % Basophils (%) (Auto) 0 0-10 % Neutrophils # (Auto) 6.5 1.8-7.8 X 10^3 Lymphocytes # (Auto) 0.7 L 1.0-4.0 X 10^3 Monocytes # (Auto) 0.7 0.0-1.0 X 10^3 Eosinophils # (Auto) 0.0 0.0-0.3 10^3/uL Basophils # (Auto) 0.0 0.0-0.1 10^3/uL Sodium Level 137 135-145 MMOL/L Potassium Level 4.0 3.6-5.0 MMOL/L Chloride Level 108 H 98-107 MMOL/L Carbon Dioxide Level 16 L 21-32 MMOL/L Anion Gap 13 5-14 MMOL/L Blood Urea Nitrogen 23 H 7-18 MG/DL Creatinine 1.40 H 0.60-1.30 MG/DL Estimat Glomerular Filtration Rate 54 BUN/Creatinine Ratio 16 Glucose Level 153 H 70-105 MG/DL Calcium Level 8.8 8.5-10.1 MG/DL Corrected Calcium 9.0 8.5-10.1 MG/DL Total Bilirubin 0.8 0.1-1.0 MG/DL Aspartate Amino Transf (AST/SGOT) 22 5-34 U/L Alanine Aminotransferase (ALT/SGPT) 29 0-55 U/L Alkaline Phosphatase 80 40-136 U/L Total Protein 6.9 6.4-8.2 GM/DL Albumin 3.8 3.2-4.5 GM/DL Physical Exam-(CHC) Physical Exam Vital Signs VS - Last 72 Hours, by Label 06/12/20 06/12/20 06/12/20 06/12/20 18:05 18:53 18:54 19:00 Temp 39.0 38.7 38.7 38.7 Pulse 111 Resp 20 B/P (MAP) 134/71 (92) Pulse Ox 94 O2 Delivery Room Air 06/12/20 06/12/20 06/12/20 06/13/20 22:17 23:06 23:10 04:00 Temp 36.2 35.4 Pulse 101 95 90 Resp 17 20 21 B/P (MAP) 122/74 110/65 101/70 (80) Pulse Ox 97 94 94 96 O2 Delivery Room Air Room Air Room Air Room Air 06/13/20 06/13/20 06/13/20 06/13/20 08:00 09:52 09:54 13:00 Temp 36.9 36.4 Pulse 98 104 99 Resp 20 24 22 B/P (MAP) 119/61 (80) 114/65 (81) Pulse Ox 96 93 93 94 O2 Delivery Room Air Room Air Room Air Room Air 06/13/20 16:00 Temp 37.0 Pulse 98 Resp 20 B/P (MAP) 106/64 (78) Pulse Ox 96 O2 Delivery Room Air Capillary Refill : Less Than 3 Seconds General Appearance: mild distress HEENT: PERRL/EOMI Neck: non-tender, full range of motion, supple Respiratory: no respiratory distress, no accessory muscle use, wheezing, expi ration Cardiovascular: normal peripheral pulses, regular rate, rhythm, no edema, no murmur Gastrointestinal: normal bowel sounds, non tender, soft, no organomegaly Back: no CVA tenderness, no vertebral tenderness Extremities: normal range of motion, non-tender, normal inspection, no pedal edema, no calf tenderness, normal capillary refill Neurologic/Psychiatric: career services manager II-XII nml as tested, no motor/sensory deficits, alert, normal mood/affect, oriented x 3 Skin: rash (erythematous rash present on back, no painful or puritic) Lymphatic: no adenopathy Assessment/Plan Assessment/Plan Admission Status: Observation (1) Sepsis Status: Acute Assessment & Plan: - IVFs, ctx pending, started on steroids and azithromycin, COVID pending Qualifiers: Qualified Codes: A41.9 - Sepsis, unspecified organism (2) Viral pneumonia Status: Acute (3) Acute kidney failure Status: Acute Qualifiers: Qualified Codes: N17.9 - Acute kidney failure, unspecified (4) HTN (hypertension) Status: Chronic Assessment & Plan: - Holding home meds due to normotensive pressures Qualifiers: Qualified Codes: I10 - Essential (primary) hypertension (5) DVT prophylaxis Status: Acute Assessment & Plan: - Lovenox Clinical Quality Measures DVT/VTE Risk/Contraindication: Risk Factor Score Per Nursin RFS Level Per Nursing on Admit: 2=Moderate MASOOD SANTANA MD Jun 13, 2020 19:09
[2020-06-13 19:35] VITALS: BP 127/76
[2020-06-14 00:11] VITALS: BP 110/60
[2020-06-14] MEDS: PROMETHAZINE INJ 25 MG/ML (PHENERGAN) AMP IVP PRN (00:19)
[2020-06-14] MEDS: NS IV 1000 ML 1,000 ML IV SCH ×2 (03:00→09:12)
[2020-06-14 03:05] VITALS: BP 116/68
[2020-06-14 07:00] LABS: BASOPHILS % (AUTO) 0 % (0-10); EOSINOPHILS % (AUTO) 0 % (0-10); HEMATOCRIT 43 % (40-54); HEMOGLOBIN 14.4 G/DL (13.3-17.7); LYMPHOCYTES # (AUTO) 1.7 X 10^3 (1.0-4.0); LYMPHOCYTES % (AUTO) 15 % (12-44); MEAN CORPUSCULAR HEMOGLOBIN 30 PG (25-34); MEAN CORPUSCULAR HGB CONC 34 G/DL (32-36); MEAN CORPUSCULAR VOLUME 90 FL (80-99); MEAN PLATELET VOLUME 10.8 FL (7.4-10.4); MONOCYTES # (AUTO) 2.3 X 10^3 (0.0-1.0); MONOCYTES % (AUTO) 21 % (0-12); NEUTROPHILS # (AUTO) 7.2 X 10^3 (1.8-7.8); NEUTROPHILS % (AUTO) 64 % (42-75); PLATELET COUNT 201 10^3/uL (130-400); RED CELL DISTRIBUTION WIDTH 13.8 % (10.0-14.5); WHITE BLOOD COUNT 11.2 10^3/uL (4.3-11.0)
[2020-06-14 07:24] LABS: BUN/CREATININE RATIO 16; CALCIUM 8.6 MG/DL (8.5-10.1); CARBON DIOXIDE 18 MMOL/L (21-32); CHLORIDE 109 MMOL/L (98-107); CREATININE SERUM 0.99 MG/DL (0.60-1.30); GFR ESTIMATED > 60; GLUCOSE 84 MG/DL (70-105); POTASSIUM 4.1 MMOL/L (3.6-5.0); SODIUM 138 MMOL/L (135-145)
[2020-06-14 07:46] VITALS: BP 142/96
[2020-06-14] MEDS ORDERED: CARVEDILOL 12.5 MG (COREG) TABLET PO SCH (08:00)
--- NOTE | 2020-06-14 08:11 | Discharge Summary ---
Diagnosis/Chief Complaint Date of Admission Jun 12, 2020 at 19:39 Date of Discharge Discharge Diagnosis Problems/Diagnosis: (1) Sepsis Assessment & Plan: - IVFs, ctx pending, started on steroids and azithromycin, COVID pending Qualifiers: Qualified Codes: A41.9 - Sepsis, unspecified organism Status: Acute (2) Viral pneumonia Status: Acute (3) Acute kidney failure Qualifiers: Qualified Codes: N17.9 - Acute kidney failure, unspecified Status: Acute (4) HTN (hypertension) Assessment & Plan: - Holding home meds due to normotensive pressures Qualifiers: Qualified Codes: I10 - Essential (primary) hypertension Status: Chronic (5) DVT prophylaxis Assessment & Plan: - Lovenox Status: Acute Chief Complaint/HPI Chief Complaint/HPI 45 yo M that started to have cough, shortness of breath and fever that started on Wednesday. Patient states that his mother tested positive for COVID on Wednesday. She had been having symptoms since last Wednesday. Patient states that he has become extremely weak the last few days and fever has been higher. He has continued to take his blood pressure medications and has not been eating or drinking normally. Discharge Summary-Simple/Stand Consultations Discharge Physical Examination Allergies: Coded Allergies: No Known Drug Allergies (Unverified , 03/31/12) Vitals & I&Os Vital Sign - Last 12Hours Date Time Temp Pulse Resp B/P (MAP) Pulse Ox O2 Delivery O2 Flow Rate FiO2 06/14/20 07:46 35.9 89 20 142/96 (111) 97 Room Air Intake and Output 06/14/20 00:00 Intake Total 1030 ml Output Total 1025 ml Balance 5 ml Hospital Course See final discharge diagnosis. Discharge Instructions to patient/family Please see electronic discharge instructions given to patient. Discharge Medications Reviewed and agree with Discharge Medication list on patient's Discharge Instruction sheet Clinical Quality Measures DVT/VTE Risk/Contraindication: Risk Factor Score Per Nursin RFS Level Per Nursing on Admit: 2=Moderate MASOOD LUCERO MD Jun 14, 2020 08:11
[2020-06-14] MEDS ORDERED: ONDA8TAB13 PO (08:18)
[2020-06-14] MEDS ORDERED: LISI-552 PO (08:18)
[2020-06-14] MEDS ORDERED: PRD50T PO (08:18)
[2020-06-14] MEDS ORDERED: AZIT250T12 PO (08:18)
[2020-06-14] MEDS ORDERED: AMLO10TA7 PO (08:18)
--- NOTE | 2020-06-14 08:19 | Discharge Summary ---
Discharge [facility] Reconcile Patient Problems Problems Reviewed?: Yes Discharge Medications New, Converted or Re-Newed RX: Transmitted to Pharmacy New Medications: Azithromycin (Azithromycin) 250 Mg Tablet 250 MG PO UD, #6 TAB TAKE 2 TABLETS ON DAY ONE THEN TAKE 1 TABLET DAILY FOR FOUR MORE DAYS Ondansetron (Ondansetron Odt) 8 Mg Tab.rapdis 8 MG PO Q6H, #20 TAB Prednisone (Prednisone) 50 Mg Tab 50 MG PO DAILY, #5 TAB Changed Medications: Amlodipine Besylate (Amlodipine Besylate) 10 Mg Tablet 10 MG PO HS, #30 TAB (Medication details modified) Hold until eating improves Lisinopril (Lisinopril) 20 Mg Tablet 20 MG PO DAILY, #30 TAB (Medication details modified) Hold until eating improves Continued Medications: Aspirin (Gray Aspirin) 81 Mg Tablet.dr 81 MG PO DAILY, TAB Atorvastatin Calcium (Atorvastatin Calcium) 40 Mg Tablet 40 MG PO HS, TAB Carvedilol (Carvedilol) 12.5 Mg Tablet 12.5 MG PO BID WITH MEALS, TAB Clonidine HCl (Clonidine HCl) 0.1 Mg Tablet 0.1 MG PO PRN PRN for BLOOD PRESSURE, TAB TAKES WHEN BP IS OVER 160/100 Ketoconazole (Ketoconazole) 15 Gm Cream..g. 1 APPLIC TP PRN PRN for RASH, TUBE MIXES KETOCONAZOLE, TRIAMCINOLONE, AND ZINC OXIDE TOGETHER TO CREATE A PASTE TO BE APPLIED TO RASH NEEDED Loratadine (Claritin) 10 Mg Tablet 10 MG PO DAILY, TAB Nitroglycerin (Nitroglycerin) 0.4 Mg Tab.subl 0.4 MG SL UD PRN for CHEST PAIN, TAB Pantoprazole Sodium (Pantoprazole Sodium) 40 Mg Tablet.dr 40 MG PO DAILY, TAB Triamcinolone Acet (Triamcinolone Acetonide 0.1% Ointment) 15 Gm Oint 1 APPLIC TP UD PRN for RASH, TUBE MIXES KETOCONAZOLE, TRIAMCINOLONE, AND ZINC OXIDE TOGETHER TO CREATE A PASTE TO BE APPLIED TO RASH NEEDED Zinc Oxide (Zinc Oxide) 57 Gm Oint...g. 1 APPLIC TP UD PRN for RASH, TUBE MIXES KETOCONAZOLE, TRIAMCINOLONE, AND ZINC OXIDE TOGETHER TO CREATE A PASTE TO BE APPLIED TO RASH NEEDED Patient Instructions Goal/Follow Up Appt: Will f.u after patient is out of quarintine. [facility] nurse will call and check on you Activity & Diet Discharge Diet: No Restrictions Activity as Tolerated: Yes Orders-Post D/C & Referrals Pneu Vac Indicated: Yes MASOOD LUCERO MD Jun 14, 2020 08:19
[2020-06-14] MEDS ORDERED: ASPIRIN E.C. 81 MG (ECOTRIN) TAB PO SCH (09:00)
[2020-06-14 12:46] VITALS: BP 150/86
[2020-06-14 14:00] VITALS: BP 150/86
--- NOTE | 2020-06-14 14:00 | NUR ---
DISCHARGE INSTRUCTIONS GIVEN, VERBALIZED UNDERSTANDING, INSTRUCTED ON NEW PRESCRIPTIONS, IV DC, SITE WITHOUT REDNESS OR SWELLING, DISMISSED PER W/C
== END 2020-06-14 14:00 | disposition home or self-care (01) ==
LOC: EDUNIT# 17:46 → ER FS 17:48 → 4TH 19:39 → UNDOADMOB 19:39 → ER FS 22:17 → 4TH 23:00 → UNDODISOB 06-14 14:00
PROVIDERS: ADMIT Family Medicine; ATTEND Family Medicine
DX: U07.1 COVID-19 (principal); J12.89 Other viral pneumonia; A41.9 Sepsis, unspecified organism; E78.00 Pure hypercholesterolemia, unspecified; I10 Essential (primary) hypertension; N17.9 Acute kidney failure, unspecified; Z79.82 Long term (current) use of aspirin; Z79.899 Other long term (current) drug therapy
CPT/HCPCS: 36415; 71045; 80048; 80053 ×2; 83735; 84484; 85007; 85025 ×2; 85027; 85379; 85610; 85730; 87040; 96361; 96374; 96375; 99284; U0002; 87635; G0378

== ENCOUNTER 2020-07-24 05:34 | Outpatient (RCR) | payer BC ==
[~2020-07-24] VITALS: Ht 190 cm; Wt 129.2 kg
[~2020-07-24 05:34] MED LIST changes: +AMLO10TA7 PO; +AMLO5TAB9; +ASPI-875 PO; +ATOR40TA70 PO; +AZIT250T12 PO; +CARV12.53 PO; +CLON0.1T PO; +KETO15CR2 TP; +LISI-552 PO; +LORA10TA76 PO; +NITR0.4T39 SL; +ONDA8TAB13 PO; +PANT40TA52 PO; +PRD50T PO; +TR1O15 TP; +ZINC57OI8 TP
[2020-07-24] MEDS ORDERED: AMLO10TA7 PO (08:56)
[2020-07-24] MEDS ORDERED: LISI-552 PO (08:56)
[2020-07-24 09:01] VITALS: BP 133/95
[2020-07-24 09:35] LABS: BASOPHILS # (AUTO) 0.1 10^3/uL (0.0-0.1); BASOPHILS % (AUTO) 1 % (0-10); EOSINOPHILS # (AUTO) 0.3 10^3/uL (0.0-0.3); EOSINOPHILS % (AUTO) 5 % (0-10); HEMATOCRIT 47 % (40-54); LYMPHOCYTES % (AUTO) 29 % (12-44); MEAN CORPUSCULAR HEMOGLOBIN 30 PG (25-34); MEAN CORPUSCULAR HGB CONC 34 G/DL (32-36); MEAN CORPUSCULAR VOLUME 88 FL (80-99); MEAN PLATELET VOLUME 10.7 FL (7.4-10.4); MONOCYTES # (AUTO) 1.2 X 10^3 (0.0-1.0); MONOCYTES % (AUTO) 17 % (0-12); NEUTROPHILS # (AUTO) 3.4 X 10^3 (1.8-7.8); NEUTROPHILS % (AUTO) 48 % (42-75); PLATELET COUNT 223 10^3/uL (130-400); WHITE BLOOD COUNT 6.9 10^3/uL (4.3-11.0)
[2020-07-24 09:46] LABS: CHLORIDE 106 MMOL/L (98-107); POTASSIUM 3.8 MMOL/L (3.6-5.0); SODIUM 135 MMOL/L (135-145)
[2020-07-24 09:47] LABS: CALCIUM 8.9 MG/DL (8.5-10.1); GLUCOSE 91 MG/DL (70-105)
[2020-07-24 09:49] LABS: CARBON DIOXIDE 20 MMOL/L (21-32)
[2020-07-24 09:51] LABS: CREATININE SERUM 0.93 MG/DL (0.60-1.30); GFR ESTIMATED > 60
[2020-07-24 09:52] LABS: BUN/CREATININE RATIO 13
== END 2020-07-24 10:05 | disposition home or self-care (01) ==
LOC: PREOP 05:34
PROVIDERS: ATTEND Otolaryngology Otolaryngology/Facial Plastic Surgery
DX: Z01.812 Encounter for preprocedural laboratory examination (principal); J35.1 Hypertrophy of tonsils; Z20.828 Contact with and (suspected) exposure to other viral communicable diseases; Z11.2 Encounter for screening for other bacterial diseases
CPT/HCPCS: 80048; 85025; 87081; U0002; 36415; 87635

== ENCOUNTER 2020-07-26 06:58 | Day surgery (SDC) | payer BC ==
[2020-07-26] VITALS (13 sets, daily range): BP systolic 132–168; BP diastolic 70–106
[~2020-07-26] VITALS: Ht 190 cm; Wt 129.2 kg
[2020-07-26] MEDS ORDERED: LACTATED RINGERS 1,000 ML IV PRN (07:21)
--- NOTE | 2020-07-26 07:28 | Progress Note-Pre Operative ---
Pre-Operative Progress Note H&P Reviewed The H&P was reviewed, patient examined and no changes noted. Date Seen by Provider: Jul 26, 2020 Time Seen by Provider: : Date H&P Reviewed: Jul 26, 2020 Time H&P Reviewed: :30 Pre-Operative Diagnosis: Sleep Apnea, Tonsillar hypertropohy JAMIL BROWN MD Jul 26, 2020 07:28
[2020-07-26] MEDS ORDERED: proPOfol 200 MG/20 ML (DIPRIVAN) VIAL IV ONE (08:05)
[2020-07-26] MEDS ORDERED: ONDANSETRON 4 MG/2 ML (SDV) Z0FRAN ONE (08:05)
[2020-07-26] MEDS ORDERED: ROCURONIUM 10 MG/ML 5 ML SYRINGE IV ONE (08:05)
[2020-07-26] MEDS ORDERED: SUCCINYLCHOLINE INJ 100 MG/5 ML SYR/VIAL ONE (08:05)
[2020-07-26] MEDS ORDERED: fentaNYL INJECTION 100 MCG/2 ML AMP ONE ×2 (08:05→08:25)
[2020-07-26] MEDS ORDERED: LIDOCAINE PF 2% 5 ML (XYLOCAINE) VIAL ONE (08:05)
[2020-07-26] MEDS ORDERED: MIDAZOLAM 2 MG/2 ML (VERSED) VIAL ONE (08:07)
[2020-07-26] MEDS ORDERED: LIDOCAINE/EPI 1%-1:100,000 (XYLOCAINE) 20ML ONE (08:09)
[2020-07-26] MEDS ORDERED: ESMOLOL 100 MG/10 ML (BREVIBLOC) VIAL ONE (08:34)
[2020-07-26] MEDS ORDERED: GLYCOPYRROLATE 0.2 MG/ML (ROBINUL) 2 ML VIAL ONE (08:54)
[2020-07-26] MEDS ORDERED: NEOSTIGMINE 3 MG/3 ML VIAL ONE (08:54)
[2020-07-26] MEDS ORDERED: SEVOFLURANE (ULTANE) 15 ML INHAL SOLN ONE (08:56)
[2020-07-26] MEDS ORDERED: HYDROmorphone 2 MG/ML VIAL (DILAUDID) ONE (09:20)
[2020-07-26] MEDS ORDERED: NS IV 1000 ML 1,000 ML IV SCH (09:27)
--- NOTE | 2020-07-26 09:27 | Progress Note-Post Operative ---
Post-Operative Progess Note Surgeon (s)/Delivery Supervisor (s) Surgeon JAMIL BROWN MD Delivery Supervisor n/a Pre-Operative Diagnosis Sleep Apnea, Tonsillar hypertropohy Post-Operative Diagnosis same Post-Op Procedure Note Date of Procedure: Jul 26, 2020 Name of Procedure Performed: Tonsillectomy, UPPP Description & Findings Description and Findings: n/a Anesthesia Type get Estimated Blood Loss minimal Packing none. Specimen(s) collected/removed tonsils, soft palate JAMIL BROWN MD Jul 26, 2020 09:27
[2020-07-26] MEDS ORDERED: morphine INJ 10 MG/ML 1ML (SYR OR VIAL) IVP ONE (09:30)
[2020-07-26] MEDS ORDERED: PROMETHAZINE INJ 25 MG/ML (PHENERGAN) AMP IVP ONE (09:30)
[2020-07-26] MEDS ORDERED: ONDANSETRON 4 MG/2 ML (SDV) Z0FRAN IVP PRN (09:30)
[2020-07-26] MEDS ORDERED: MEPERIDINE (DEMEROL) INJ 50 MG/ML IVP ONE (09:30)
[2020-07-26] MEDS ORDERED: HYDROmorphone 2 MG/ML VIAL (DILAUDID) IV ONE (09:30)
[2020-07-26] MEDS ORDERED: APAP 325 MG/10.15 ML LIQ (TYLENOL) UDC PO PRN (09:30)
--- NOTE | 2020-07-26 10:06 | Anesthesia-General Post-Op ---
General Patient Condition Mental Status/LOC: Same as Preop Cardiovascular: Satisfactory Nausea/Vomiting: Absent Respiratory: Satisfactory Pain: Controlled Complications: Absent Post Op Complications Complications None Follow Up Care/Instructions Patient Instructions None needed. Anesthesia/Patient Condition Patient Condition Patient is doing well, no complaints, stable vital signs, no apparent adverse anesthesia problems. No complications reported per nursing. [place] CRNA Jul 26, 2020 10:06
--- NOTE | 2020-07-26 10:15 | NUR ---
PT ARRIVED TO ROOM 416 AT 1015 BY BED. HIS [facility] RN WAS BETH AND SHE GAVE REPORT THAT PT HAD DONE WELL IN SURGERY AND HAD NO COMPLAINTS AT THIS TIME. PT REPORTED THAT ONLY COMPLAINT WAS THROAT PAIN. WILL CONTINUE TO MONITOR. ACCORDING TO BETH RN FROM [facility] PT WILL BE HERE FOR 24 HRS FOR OBS D/T HIS SURGERY.
[2020-07-26] MEDS: HYDROcodone/APAP 7.5MG-325 MG/15 ML (LORTAB) UDC PO PRN ×3 (10:40→18:11)
[2020-07-26] MEDS: LIDOCAINE 2% VISCOUS 15 ML UDC PO PRN ×2 (12:27→16:07)
--- NOTE | 2020-07-26 16:00 | NUR ---
THIS RN MISTAKENLY TOOK OUT LIQUID HYDROCODONE FOR PT. NURSE GREASE WORKER WAS ABLE TO RETURN MEDICATION TO [facility] BUT THE COUNT WAS OFF. PRIOR TO TAKING CUP OUT COUNT WAS AT 3, THEN [employer] STILL READ THERE WAS 2 EVEN AFTER RETURNING. SURGICAL ASST, TIMOTHY REYES NOTIFIED AND SHE ATTEMPTED TO RESOLVE MED COUNT. THERE IS 3 CUPS IN [employer] AND IT READS THERE IS TWO. PHARMACY NOTIFIED OF POSSIBLE DISCRIPENCY.
--- NOTE | 2020-07-26 16:30 | NUR ---
DR BROWN CALLED THIS RN TO CHECK ON PT. DR BROWN NOTIFIED BY NURSE AUTOMATIC TYPEWRITER INSPECTOR THAT PT'S BP WAS TRENDING DOWNWARD AND THAT WE WERE ATTEMPTING TO GET HIM OFF 02 FOR A COUPLE HOURS BUT THAT HE PROB WOULD NEED IT AT HS. ALSO WE ARE TRYING TO CONTROL PAIN WITH LIQUID HYDROCODONE AND HIS LIDOCAINE. SAID HE WOULD NOT COME BY TONIGHT IF HE WAS DOING WELL AND HE WOULD BE IN EARLY IN AM TO SEE HIM. DR BROWN ALSO STATED ALL OF HIS SCRIPTS WERE ALREADY IN CHART. PTS , JEREMI, TOOK SCRIPTS SO SHE COULD DROP THEM OFF ON HER WAY BACK TO [place] THIS EVENING.
--- NOTE | 2020-07-26 19:30 | NUR ---
, JEREMI, TOLD RN THAT IF PT WAKES UP FROM DEEP SLEEP HE MAY BE CONFUSED AND UNAWARE OF SURROUNDINGS. JEREMI STATED IF THIS HAPPENED TO CALL HER. HER CELL PHONE IS ON WHITE BOARD IN ROOM. NIGHT RN, ALLEN TOM, NOTIFIED OF THIS.
[2020-07-27 04:45] VITALS: BP 128/79
--- NOTE | 2020-07-27 06:21 | Progress Note ---
Standard Progress Note Progress Notes/Assess & Plan Date Seen by a Provider: Jul 27, 2020 Time Seen by a Provider: 06:30 Progress/Assessment & Plan ENT-Natividad doing well-moderate pain which is helped iwth pain medication no bleeding sats in low 90's while sleeping [id number]-[id number] intact will discharge after breakfast discharge prescriptionis in chart rtc-2 weeks discharge instructiosn given JAMIL BROWN MD Jul 27, 2020 06:21
[2020-07-27 08:00] VITALS: BP 120/73
[2020-07-27 09:55] VITALS: BP 120/73
== END 2020-07-27 09:55 | disposition home or self-care (01) ==
LOC: SDC 06:58 → 4TH 10:15 → SDC 07-27 09:55
PROVIDERS: ATTEND Otolaryngology Otolaryngology/Facial Plastic Surgery
DX: J35.1 Hypertrophy of tonsils (principal); G47.33 Obstructive sleep apnea (adult) (pediatric); I10 Essential (primary) hypertension; I25.10 Atherosclerotic heart disease of native coronary artery without angina pectoris; K21.9 Gastro-esophageal reflux disease without esophagitis; Z79.899 Other long term (current) drug therapy; Z79.82 Long term (current) use of aspirin
CPT/HCPCS: 88302; 88304

== ENCOUNTER 2021-01-05 09:34 | Emergency (ER) | payer BC ==
[~2021-01-05] VITALS: Ht 190.5 cm; Wt 128.3 kg
[~2021-01-05 09:34] MED LIST changes: +AMLO-250; +AMLO-251 PO; -AMLO10TA7 PO; -AMLO5TAB9; +CLN.1T PO; -CLON0.1T PO; -LISI-552 PO; +LISI20TA26 PO
[2021-01-05 09:40] VITALS: BP 162/103
[2021-01-05] MEDS ORDERED: KETOROLAC 60 MG/2 ML VIAL ONE (09:42)
[2021-01-05] MEDS ORDERED: PRD20T PO (09:52)
--- NOTE | 2021-01-05 09:52 | ED EENT ---
History of Present Illness General Stated Complaint: HEADACHE,DIZZY,EAR PAIN Source: patient Exam Limitations: no limitations History of Present Illness Date Seen by Provider: Jan 05, 2021 Time Seen by Provider: 09:39 Initial Comments The patient presents to the ER by private conveyance from home with chief complaint that 3 days ago he was started on an antibiotic for right ear infection and continues to have headache. He was warned that if his symptoms were not improving in 3 days he should return to the doctor. He is not having fevers. He is taking Augmentin and tolerating it okay. No nausea vomiting or nasal discharge. No discharge from the ear no eardrops. He is not on any steroids nor is he using topical steroids. No history of surgeries in the ears. Allergies and Home Medications Allergies Coded Allergies: No Known Drug Allergies (Unverified , 07/24/20) Home Medications Amlodipine Besylate 10 Mg Tablet, 10 MG PO DAILY, (Reported) Atorvastatin Calcium 40 Mg Tablet, 40 MG PO HS, (Reported) Carvedilol 12.5 Mg Tablet, 12.5 MG PO BID WITH MEALS, (Reported) Clonidine HCl 0.1 Mg Tablet, 0.1 MG PO PRN PRN for BLOOD PRESSURE, (Reported) TAKES WHEN BP IS OVER 160/100 Ketoconazole 15 Gm Cream..g., 1 APPLIC TP PRN PRN for RASH, (Reported) MIXES KETOCONAZOLE, TRIAMCINOLONE, AND ZINC OXIDE TOGETHER TO CREATE A PASTE TO BE APPLIED TO RASH NEEDED Lisinopril 20 Mg Tablet, 20 MG PO DAILY, (Reported) Loratadine 10 Mg Tablet, 10 MG PO DAILY PRN for CONGESTION, (Reported) Nitroglycerin 0.4 Mg Tab.subl, 0.4 MG SL UD PRN for CHEST PAIN, (Reported) Pantoprazole Sodium 40 Mg Tablet.dr, 40 MG PO DAILY, (Reported) Triamcinolone Acet 15 Gm Oint, 1 APPLIC TP UD PRN for RASH, (Reported) MIXES KETOCONAZOLE, TRIAMCINOLONE, AND ZINC OXIDE TOGETHER TO CREATE A PASTE TO BE APPLIED TO RASH NEEDED Zinc Oxide 57 Gm Oint...g., 1 APPLIC TP UD PRN for RASH, (Reported) MIXES KETOCONAZOLE, TRIAMCINOLONE, AND ZINC OXIDE TOGETHER TO CREATE A PASTE TO BE APPLIED TO RASH NEEDED Patient Home Medication List Home Medication List Reviewed: Yes Review of Systems Review of Systems Constitutional: No chills, No diaphoresis Eyes: Denies Blindness, Denies Drainage Ears: Denies Dizziness, Denies Pain Nose: denies clots, denies congestion Mouth: denies clots, denies pain, denies swelling All Other Systems Reviewed Negative Unless Noted: Yes Past Thymmhg-Fbcoyy-Ecbuim Hx Patient Social History Alcohol Use: Denies Use Smoking Status: Never a Smoker 2nd Hand Smoke Exposure: No Recent Hopitalizations: Yes (JUN 2020-COVID) Immunizations Up To Date Date of Pneumonia Vaccine: Nov 08, 2008 Date of Influenza Vaccine: Aug 08, 2019 Seasonal Allergies Seasonal Allergies: Yes Past Medical History Surgeries: Yes (hernia, knee surgery, neck surgery) Abdominal, Appendectomy, Coronary Stent, Gallbladder, Orthopedic Respiratory: Yes Sleep Apnea Currently Using CPAP: No Currently Using BIPAP: No Cardiac: Yes (Heart cath-2010?) Coronary Artery Disease, High Cholesterol, Hypertension Neurological: No Reproductive Disorders: No Sexually Transmitted Disease: No HIV/AIDS: No Genitourinary: No Gastrointestinal: Yes Gastroesophageal Reflux Musculoskeletal: Yes Arthritis, Chronic Back Pain Endocrine: No HEENT: No (GLASSES) Loss of Vision: Denies Hearing Impairment: Denies Cancer: Yes Lymphoma Did You Recieve Any Treatments: No Psychosocial: No Integumentary: No Blood Disorders: No Adverse Reaction/Blood Tranf: No (N/A) Family Medical History No Pertinent Family Hx Physical Exam Height, Weight, BMI Height: '" Weight: lbs. oz. kg; 35.78 BMI Method:Stated General Appearance: WD/WN, mild distress Eyes: bilateral eye normal inspection, bilateral eye PERRL, bilateral eye EOMI Ears: bilateral ear auricle normal, bilateral ear canal normal, bilateral ear other (Bilateral TMs bulging with mucoid effusion very mild injection on the right TM without opacity. No tenderness to manipulation. No tenderness over the mastoid process.) Nose: normal inspection; No discharge Mouth/Throat: normal mouth inspection, pharynx normal Neurologic/Psychiatric: alert, normal mood/affect, oriented x 3 Skin: normal color, warm/dry Progress/Results/Core Measures Results/Orders My Orders Orders - ROBERTO JOSHI Ketorolac Injection (Toradol Injection) (01/05/21 10:00) Progress Progress Note : Time: 09:49 Progress Note No evidence of worsening infection, mastoiditis etc. Continue the antibiotics and we can add a steroid to help drain his middle ear. Toradol x1. Return precautions given. Departure Impression Primary Impression: Otitis media of right ear Qualified Codes: H65.01 - Acute serous otitis media, right ear Additional Impressions: Headache Qualified Codes: G44.209 - Tension-type headache, unspecified, not intractable Acute otitis media with effusion of right ear Disposition: HOME, SELF-CARE Condition: Stable Departure-Patient Inst. Decision time for Depature: 09:50 Referrals: [facility] (PCP) Primary Care Physician ANAND GROVER APRN (Family) Primary Care Physician Patient Instructions: Serous Otitis Media (DC) Add. Discharge Instructions: Finish taking your antibiotics as prescribed to prevent recurrent bacterial ear infection. mirror fabrication supervisor a bottle of fluticasone/Flonase and put 1 puff in each nostril daily for the next 1 to 2 weeks until your symptoms improve. mirror fabrication supervisor the prednisone and take 2 tablets daily for the next 5 days to reduce the swelling in your eustachian tubes so that your middle ear will drain and reducing your headache. Tylenol 1000 mg every 8 hours as necessary for pain. Ibuprofen 800 mg every 8 hours as necessary for pain. We gave you a shot of Toradol which should last about 8 hours and then you can start taking ibuprofen again. If your symptoms worsen or you develop fevers then you need to return to the emergency room promptly. Scripts Prednisone (Prednisone) 20 Mg Tab 40 MG PO DAILY for 5 Days, #10 TAB 0 Refills Prov: ROBERTO JOSHI 01/05/21 ROBERTO JOSHI Jan 05, 2021 09:52
[2021-01-05] MEDS ORDERED: KETOROLAC 60 MG/2 ML VIAL IM ONE (10:00)
== END 2021-01-05 10:02 | disposition home or self-care (01) ==
LOC: EDUNIT# 09:34 → ER 09:35
DX: H65.191 Other acute nonsuppurative otitis media, right ear (principal); R51.9 Headache, unspecified; I10 Essential (primary) hypertension; E78.00 Pure hypercholesterolemia, unspecified; I25.10 Atherosclerotic heart disease of native coronary artery without angina pectoris; K21.9 Gastro-esophageal reflux disease without esophagitis; Z85.79 Personal history of other malignant neoplasms of lymphoid, hematopoietic and related tissues; Z95.5 Presence of coronary angioplasty implant and graft; Z95.9 Presence of cardiac and vascular implant and graft, unspecified
CPT/HCPCS: 99284

== ENCOUNTER → 2021-01-16 | Outpatient (CLI) | payer BC ==
[~2021-01-16] MED LIST changes: +PRD20T PO
--- NOTE | 2021-01-16 08:44 | Diagnostic Imaging Report ---
CLINICAL INDICATION: Patient with headaches and dizziness x1 month. Patient has history of lymphoma. No known injury. EXAM: Axial CT scan of the brain without IV contrast with coronal and sagittal reformatted images. Auto Exposure Controls were utilized during the CT exam to meet ALARA standards for radiation dose reduction. COMPARISON: None. FINDINGS: There is no evidence of acute cerebral infarct, intracranial hemorrhage, or gross mass effect. The brain parenchymal volume appears appropriate for patient's age. There is normal rosen-white matter distinction. There is no significant midline shift or herniation. There is note that there is slight increased density of all of the vessels seen intracranially which may be from recent IV contrast injection or may be seen with dehydration. Clinical correlation is suggested. There is no evidence of hydrocephalus. The basal cisterns are unremarkable. The skull, extracranial soft tissue, and orbits are unremarkable. There is moderate mucosal thickening involving the ethmoid sinus. There is mild mucosal thickening involving both maxillary sinuses and sphenoid sinus. Temporal bones show no significant abnormality. IMPRESSION: 1: There is note that there is slight increased density of all of the vessels seen intracranially which may be from recent IV contrast injection or may be seen with dehydration. Clinical correlation is suggested. Otherwise, unremarkable CT scan of the brain. 2: Mild to moderate paranasal sinus disease. Dictated by: Dictated on workstation # [id number]
== END ==
LOC: RAD FS 07:58
PROVIDERS: ATTEND Nurse Practitioner Family
DX: J34.89 Other specified disorders of nose and nasal sinuses (principal)
CPT/HCPCS: 70450

== ENCOUNTER → 2021-03-07 | Outpatient (CLI) | payer BC ==
--- NOTE | 2021-03-07 18:05 | Diagnostic Imaging Report ---
INDICATION: Bilateral knee pain. TECHNIQUE: 3 views of each knee were acquired. FINDINGS: Both knees demonstrate findings of mild osteoarthritis with some mild joint space loss involving the medial and patellofemoral compartments. There are tiny early medial compartment and patellar osteophytes. There are no findings of an acute fracture. There is no suspicious bone lesion. There are no findings of a significant knee joint effusion. IMPRESSION: Minimal early osteoarthritic changes within the medial and patellofemoral compartments of both knees. No acute osseous injury demonstrated. Alignment is normal. There is no significant knee joint effusion. Dictated by: Dictated on workstation # [id number]
== END ==
LOC: RAD FS 16:26
PROVIDERS: ATTEND Nurse Practitioner Family
DX: M17.0 Bilateral primary osteoarthritis of knee (principal)

== ENCOUNTER → 2021-04-25 | Outpatient (CLI) | payer BC ==
[2021-04-25 18:06] LABS: BASOPHILS # (AUTO) 0.1 10^3/uL (0.0-0.1); BASOPHILS % (AUTO) 1 % (0-10); EOSINOPHILS # (AUTO) 0.5 10^3/uL (0.0-0.3); EOSINOPHILS % (AUTO) 4 % (0-10); HEMATOCRIT 49 % (40-54); HEMOGLOBIN 16.5 g/dL (13.3-17.7); LYMPHOCYTES # (AUTO) 3.2 10^3/uL (1.0-4.0); LYMPHOCYTES % (AUTO) 28 % (12-44); MEAN CORPUSCULAR HEMOGLOBIN 30 pg (25-34); MEAN CORPUSCULAR HGB CONC 34 g/dL (32-36); MEAN CORPUSCULAR VOLUME 88 fL (80-99); MEAN PLATELET VOLUME 10.7 fL (9.0-12.2); MONOCYTES # (AUTO) 1.2 10^3/uL (0.0-1.0); MONOCYTES % (AUTO) 10 % (0-12); NEUTROPHILS # (AUTO) 6.5 10^3/uL (1.8-7.8); NEUTROPHILS % (AUTO) 57 % (42-75); PLATELET COUNT 278 10^3/uL (130-400); WHITE BLOOD COUNT 11.5 10^3/uL (4.3-11.0)
[2021-04-25 18:12] LABS: BILIRUBIN,URINE NEGATIVE (NEGATIVE); CLARITY,URINE CLEAR; COLOR,URINE YELLOW; GLUCOSE, URINE (UA) NEGATIVE (NEGATIVE); KETONES,URINE NEGATIVE (NEGATIVE); LEUKOCYTE ESTERASE ,URINE NEGATIVE (NEGATIVE); NITRITE,URINE NEGATIVE (NEGATIVE); PROTEIN,URINE NEGATIVE (NEGATIVE)
[2021-04-25 18:20] LABS: BACTERIA,URINE NEGATIVE /HPF; RBC,URINE RARE /HPF
[2021-04-25 18:21] LABS: ALBUMIN 4.1 GM/DL (3.2-4.5); CHLORIDE 107 MMOL/L (98-107); POTASSIUM 3.6 MMOL/L (3.6-5.0)
[2021-04-25 18:22] LABS: SODIUM 138 MMOL/L (135-145)
[2021-04-25 18:23] LABS: CALCIUM 9.2 MG/DL (8.5-10.1)
[2021-04-25 18:24] LABS: GLUCOSE 112 MG/DL (70-105); TOTAL PROTEIN 7.2 GM/DL (6.4-8.2)
[2021-04-25 18:25] LABS: CARBON DIOXIDE 18 MMOL/L (21-32)
[2021-04-25 18:26] LABS: BILIRUBIN,TOTAL 0.3 MG/DL (0.1-1.0)
[2021-04-25 18:27] LABS: ALKALINE PHOSPHATASE 81 U/L (40-136)
[2021-04-25 18:28] LABS: CREATININE SERUM 1.04 MG/DL (0.60-1.30); GFR ESTIMATED > 60
[2021-04-25 18:29] LABS: BUN/CREATININE RATIO 12
[2021-04-25 18:30] LABS: ALANINE AMINOTRANSFERASE 19 U/L (0-55)
[2021-04-25 18:31] LABS: CREATINE KINASE 177 U/L (30-200)
== END ==
LOC: LAB 17:30
PROVIDERS: ATTEND Internal Medicine Rheumatology
DX: R76.8 Other specified abnormal immunological findings in serum (principal); R20.0 Anesthesia of skin
CPT/HCPCS: 36415; 80053; 81000; 82550; 82570; 82595; 83520; 84155; 84156; 84165; 85025; 86160; 86225; 86235; 86256; 86334

== ENCOUNTER → 2021-05-01 | Outpatient (CLI) | payer BC ==
--- NOTE | 2021-05-01 18:29 | Diagnostic Imaging Report ---
PROCEDURE: MRI right joint lower extremity without contrast. TECHNIQUE: Multiplanar, multisequence non contrast-enhanced MRI of the right lower extremity was accomplished. INDICATION: Chronic right knee pain EXAMINATION: MRI of the right knee without contrast 05/01/2021 FINDINGS: The extensor mechanism is intact. Minimal T2 hyperintensity is noted along the proximal patellar tendon likely due to mild focal tendinosis. The ACL and PCL are intact. The MCL and the lateral collateral ligamentous complex intact. 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 Mild myxoid degeneration seen in the posterior horn of the lateral meniscus. There are no discrete meniscal tears. There is loss of cartilage in the medial joint compartment mild in nature. Lateral joint space cartilage preserved. There is mild fissuring of the cartilage over the medial patellar facet with subchondral edema in the patella. There is a small joint effusion. There is a small slitlike Henson's cyst. There is no acute osseous abnormality. IMPRESSION: 1. 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 2. Tendinosis noted along the proximal patellar tendon; remaining ligaments and tendons unremarkable. 3. Degenerative findings as above. Dictated by: Dictated on workstation # [id number]
== END ==
LOC: RAD 16:15
PROVIDERS: ATTEND Orthopaedic Surgery
DX: S83.231A Complex tear of medial meniscus, current injury, right knee, initial encounter (principal); M17.11 Unilateral primary osteoarthritis, right knee
CPT/HCPCS: 73721

== ENCOUNTER → 2021-09-11 | Outpatient (CLI) | payer BC ==
--- NOTE | 2021-09-11 16:17 | Diagnostic Imaging Report ---
INDICATION: Abdominal wall hernia, prior history of lymphoma. TECHNIQUE: Multiple contiguous axial images were obtained through the abdomen and pelvis without the use of intravenous contrast. Auto Exposure Controls were utilized during the CT exam to meet ALARA standards for radiation dose reduction. EXAMINATION: There is no previous CT for comparison. The visualized portions of the lung bases are clear. There is no pleural fluid collection. There is no free intraperitoneal air. The liver shows no focal lesion. Gallbladder is surgically absent. The spleen and adrenals and pancreas appear normal. The right kidney appears normal. The left kidney shows a hyperdense finding in the midpole laterally which may represent a hemorrhagic cyst. This measured about 1.3 cm. There is no other focal abnormality in the left kidney. There is no retroperitoneal mass or adenopathy. There is no ascites or abnormal fluid collection. Visualized bowel loops show no sign of obstruction. There is no pelvic lymphadenopathy. There is a minimal periumbilical hernia containing fat. Study is otherwise unremarkable. IMPRESSION: Status post cholecystectomy. Minimal peribuccal hernia containing fat. No abdominal mass or abnormal fluid collection. There is a 1.3 cm hyperdense finding in the left kidney which may represent a hemorrhagic cyst, this can be followed sonographically as clinically warranted. Dictated by: Dictated on workstation # [id number]
== END ==
LOC: RAD FS 14:56
PROVIDERS: ATTEND Nurse Practitioner Family
DX: K43.9 Ventral hernia without obstruction or gangrene (principal); Z90.49 Acquired absence of other specified parts of digestive tract; Z85.72 Personal history of non-Hodgkin lymphomas
CPT/HCPCS: 74176

== ENCOUNTER 2022-05-10 20:19 | Emergency (ER) | payer BC ==
[~2022-05-10] VITALS: Ht 190.5 cm; Wt 57.5 kg
--- NOTE | 2022-05-10 20:30 | ED Abdominal Pain ---
General Chief Complaint: Abdominal/GI Problems Stated Complaint: ANAL BLEEDING History of Present Illness Date Seen by Provider: May 10, 2022 Time Seen by Provider: 20:26 Initial Comments 46-year-old male presents with some bright red blood per rectum. He notes that after a bowel movement when he wiped. He reports that he mainly notices it when he wipes and a little bit on his undergarments. Patient has some mild lower abdominal discomfort. He has some mild diarrhea. No other fevers chills or other systemic complaints. Reports that this is happened a little while earlier today. Allergies and Home Medications Allergies Coded Allergies: No Known Drug Allergies (Unverified , 07/24/20) Patient Home Medication List Home Medication List Reviewed: Yes Amlodipine Besylate (Amlodipine Besylate) 10 Mg Tablet, 10 MG PO DAILY, (Reported) Entered as Reported by: COLLINS GONZALES on 07/24/20 0856 Atorvastatin Calcium (Atorvastatin Calcium) 40 Mg Tablet, 40 MG PO HS, (Reported) Entered as Reported by: JIAN BOLDEN on 06/12/20 182 Carvedilol (Carvedilol) 12.5 Mg Tablet, 12.5 MG PO BID WITH MEALS, (Reported) Entered as Reported by: JIAN BOLDEN on 06/12/20 182 Clonidine HCl (Clonidine HCl) 0.1 Mg Tablet, 0.1 MG PO PRN PRN for BLOOD PRESSURE, (Reported) Entered as Reported by: LUZ MARIA SOTO on 06/13/20 141 Ketoconazole (Ketoconazole) 15 Gm Cream..g., 1 APPLIC TP PRN PRN for RASH, (Reported) Entered as Reported by: LUZ MARIA SOTO on 06/13/20 141 Lisinopril (Lisinopril) 20 Mg Tablet, 20 MG PO DAILY, (Reported) Entered as Reported by: COLLINS GONZALES on 07/24/20 0856 Loratadine (Claritin) 10 Mg Tablet, 10 MG PO DAILY PRN for CONGESTION, (Reported) Entered as Reported by: LUZ MARIA SOTO on 06/13/20 141 Nitroglycerin (Nitroglycerin) 0.4 Mg Tab.subl, 0.4 MG SL UD PRN for CHEST PAIN, (Reported) Entered as Reported by: LUZ MARIA SOTO on 06/13/20 1410 Pantoprazole Sodium (Pantoprazole Sodium) 40 Mg Tablet.dr, 40 MG PO DAILY, (Reported) Entered as Reported by: JIAN BOLDEN on 06/12/20 1828 Prednisone (Prednisone) 20 Mg Tab, 40 MG PO DAILY Prescribed by: ROBERTO JOSHI on 01/05/21 0952 Triamcinolone Acet (Triamcinolone Acetonide 0.1% Ointment) 15 Gm Oint, 1 APPLIC TP UD PRN for RASH, (Reported) Entered as Reported by: LUZ MARIA SOTO on 06/13/20 1415 Zinc Oxide (Zinc Oxide) 57 Gm Oint...g., 1 APPLIC TP UD PRN for RASH, (Reported) Entered as Reported by: LUZ MARIA SOTO on 06/13/20 1415 Review of Systems Review of Systems Constitutional: No chills, No fever Respiratory: No Symptoms Reported; Denies Cough, Denies Shortness of Air Cardiovascular: Denies Chest Pain, Denies Lightheadedness Gastrointestinal: Abdominal Pain, Blood Streaked Stools, Diarrhea, Rectal Bleeding Genitourinary: No Symptoms Reported Musculoskeletal: no symptoms reported Skin: no symptoms reported Psychiatric/Neurological: No Symptoms Reported Endocrine: No Symptoms Reported Past Ltocikd-Jzvcrg-Feitej Hx Seasonal Allergies Seasonal Allergies: Yes Past Medical History Surgeries: Yes (hernia, knee surgery, neck surgery) Abdominal, Appendectomy, Coronary Stent, Gallbladder, Orthopedic Respiratory: Yes Sleep Apnea Currently Using CPAP: No Currently Using BIPAP: No Cardiac: Yes (Heart cath-2010?) Coronary Artery Disease, High Cholesterol, Hypertension Neurological: No Reproductive Disorders: No Sexually Transmitted Disease: No HIV/AIDS: No Genitourinary: No Gastrointestinal: Yes Gastroesophageal Reflux Musculoskeletal: Yes Arthritis, Chronic Back Pain Endocrine: No HEENT: No (GLASSES) Loss of Vision: Denies Hearing Impairment: Denies Cancer: Yes Lymphoma Did You Recieve Any Treatments: No Psychosocial: No Integumentary: No Blood Disorders: No Adverse Reaction/Blood Tranf: No (N/A) Family Medical History No Pertinent Family Hx Physical Exam Vital Signs Vital Signs - First Documented 05/10/22 20:23 Temp 36.2 Pulse 90 Resp 18 B/P (MAP) 163/103 (123) Pulse Ox 98 O2 Delivery Room Air Capillary Refill : Height/Weight/BMI Height: '" Weight: lbs. oz. kg; 35.00 BMI Method:Stated General Appearance: WD/WN, no apparent distress Respiratory: lungs clear, normal breath sounds Cardiovascular: normal peripheral pulses, regular rate, rhythm Gastrointestinal: soft; No distended, No guarding, No rebound; tenderness (Mild lower abdomen left greater than right) Rectal: hemorrhoids (external bleeding ), tenderness Extremities: non-tender, normal inspection Neurologic/Psychiatric: alert, normal mood/affect, oriented x 3 Skin: normal color, warm/dry Progress/Results/Core Measures Results/Orders Lab Results Laboratory Tests Test 05/10/22 20:40 Range/Units White Blood Count 11.9 H 4.3-11.0 10^3/uL Red Blood Count 5.52 4.30-5.52 10^6/uL Hemoglobin 16.7 13.3-17.7 g/dL Hematocrit 49 40-54 % Mean Corpuscular Volume 88 80-99 fL Mean Corpuscular Hemoglobin 30 25-34 pg Mean Corpuscular Hemoglobin Concent 34 32-36 g/dL Red Cell Distribution Width 12.9 10.0-14.5 % Platelet Count 265 130-400 10^3/uL Mean Platelet Volume 10.5 9.0-12.2 fL Immature Granulocyte % (Auto) 0 % Neutrophils (%) (Auto) 51 42-75 % Lymphocytes (%) (Auto) 34 12-44 % Monocytes (%) (Auto) 10 0-12 % Eosinophils (%) (Auto) 4 0-10 % Basophils (%) (Auto) 1 0-10 % Neutrophils # (Auto) 6.0 1.8-7.8 10^3/uL Lymphocytes # (Auto) 4.1 H 1.0-4.0 10^3/uL Monocytes # (Auto) 1.1 H 0.0-1.0 10^3/uL Eosinophils # (Auto) 0.5 H 0.0-0.3 10^3/uL Basophils # (Auto) 0.1 0.0-0.1 10^3/uL Immature Granulocyte # (Auto) 0.0 0.0-0.1 10^3/uL Sodium Level 139 135-145 MMOL/L Potassium Level 3.5 L 3.6-5.0 MMOL/L Chloride Level 105 98-107 MMOL/L Carbon Dioxide Level 21 21-32 MMOL/L Anion Gap 13 5-14 MMOL/L Blood Urea Nitrogen 10 7-18 MG/DL Creatinine 0.95 0.60-1.30 MG/DL Estimat Glomerular Filtration Rate 99 BUN/Creatinine Ratio 11 Glucose Level 147 H 70-105 MG/DL Calcium Level 9.1 8.5-10.1 MG/DL Corrected Calcium 8.9 8.5-10.1 MG/DL Total Bilirubin 0.4 0.1-1.0 MG/DL Aspartate Amino Transf (AST/SGOT) 17 5-34 U/L Alanine Aminotransferase (ALT/SGPT) 22 0-55 U/L Alkaline Phosphatase 83 40-136 U/L C-Reactive Protein < 0.30 <0.50 MG/DL Total Protein 7.0 6.4-8.2 GM/DL Albumin 4.2 3.2-4.5 GM/DL My Orders Orders - ESPANA,MERLINE L DO Cbc With Automated Diff (05/10/22 20:30) Comprehensive Metabolic Panel (05/10/22 20:30) Crp Fs (05/10/22 20:30) Ct Abdomen/Pelvis Wo (05/10/22 21:10) Vital Signs/I&O 05/10/22 20:23 Temp 36.2 Pulse 90 Resp 18 B/P (MAP) 163/103 (123) Pulse Ox 98 O2 Delivery Room Air Progress Progress Note : Progress Note Patient with external bleeding hemorrhoid that was likely ruptured thrombosed hemorrhoid. Patient with slight white count so I went had CT of him to check for diverticulosis. Patient negative CT exam. Discussed with him supportive care for external hemorrhoids. Patient was stable and discharged home Diagnostic Imaging Diagonstic Imaging: CT Plain Films/CT/US/NM/MRI: abdomen, pelvis Comments Date of Exam:05/10/22 CT ABDOMEN/PELVIS WO PROCEDURE: CT abdomen and pelvis without contrast. TECHNIQUE: Multiple contiguous axial images were obtained through the abdomen and pelvis without the use of intravenous contrast. Auto Exposure Controls were utilized during the CT exam to meet ALARA standards for radiation dose reduction. INDICATION: Bloody stools. COMPARISON: 09/11/2021. FINDINGS: The heart is unremarkable. The lung bases are clear. Thickening of the fissure on the left is stable compared to the prior exam. Proteinaceous cyst is seen in the mid left kidney. No hydronephrosis or renal calculi. The urinary bladder is nondistended. No perinephric fat stranding. The liver, spleen, pancreas and adrenal glands have a normal appearance. The gallbladder is surgically absent. There is no pathologically enlarged mesenteric or retroperitoneal adenopathy. The bowel loops are nondilated. There is no free fluid or free air. No acute osseous abnormalities. Chronic height loss is seen in the superior endplate of L5. There is no free air, loculated collection or adenopathy in the pelvis. IMPRESSION: No acute abnormality in the abdomen or pelvis. No bowel obstruction, free fluid or free air. No acute inflammatory changes. Reviewed: Reviewed by Me, Reviewed/Discussed Departure Impression Primary Impression: External hemorrhoid, bleeding Disposition: HOME, SELF-CARE Condition: Stable Departure-Patient Inst. Referrals: [facility] (PCP) Primary Care Physician ANAND GROVER APRN (Family) Primary Care Physician Patient Instructions: Hemorrhoids Add. Discharge Instructions: Preparation H, Tucks or similar [id number] hemorrhoid medication If it continues to be recurrent please follow-up with your primary care provider for a general surgery consult for further treatment options Be sure to drink plenty of fluids and have plenty of fiber in your diet All discharge instructions reviewed with patient and/or family. Voiced understanding. MERLINE ESPANA DO May 10, 2022 20:30
[2022-05-10 20:45] LABS: BASOPHILS # (AUTO) 0.1 10^3/uL (0.0-0.1); BASOPHILS % (AUTO) 1 % (0-10); EOSINOPHILS # (AUTO) 0.5 10^3/uL (0.0-0.3); EOSINOPHILS % (AUTO) 4 % (0-10); HEMATOCRIT 49 % (40-54); HEMOGLOBIN 16.7 g/dL (13.3-17.7); LYMPHOCYTES # (AUTO) 4.1 10^3/uL (1.0-4.0); LYMPHOCYTES % (AUTO) 34 % (12-44); MEAN CORPUSCULAR HEMOGLOBIN 30 pg (25-34); MEAN CORPUSCULAR HGB CONC 34 g/dL (32-36); MEAN CORPUSCULAR VOLUME 88 fL (80-99); MEAN PLATELET VOLUME 10.5 fL (9.0-12.2); MONOCYTES # (AUTO) 1.1 10^3/uL (0.0-1.0); MONOCYTES % (AUTO) 10 % (0-12); NEUTROPHILS % (AUTO) 51 % (42-75); PLATELET COUNT 265 10^3/uL (130-400); WHITE BLOOD COUNT 11.9 10^3/uL (4.3-11.0)
[2022-05-10 21:05] LABS: ALANINE AMINOTRANSFERASE 22 U/L (0-55); ALBUMIN 4.2 GM/DL (3.2-4.5); ALKALINE PHOSPHATASE 83 U/L (40-136); BILIRUBIN,TOTAL 0.4 MG/DL (0.1-1.0); BUN/CREATININE RATIO 11; CALCIUM 9.1 MG/DL (8.5-10.1); CARBON DIOXIDE 21 MMOL/L (21-32); CHLORIDE 105 MMOL/L (98-107); CREATININE SERUM 0.95 MG/DL (0.60-1.30); GFR ESTIMATED 99; GLUCOSE 147 MG/DL (70-105); POTASSIUM 3.5 MMOL/L (3.6-5.0); SODIUM 139 MMOL/L (135-145)
--- NOTE | 2022-05-10 21:44 | Diagnostic Imaging Report ---
PROCEDURE: CT abdomen and pelvis without contrast. TECHNIQUE: Multiple contiguous axial images were obtained through the abdomen and pelvis without the use of intravenous contrast. Auto Exposure Controls were utilized during the CT exam to meet ALARA standards for radiation dose reduction. INDICATION: Bloody stools. COMPARISON: 09/11/2021. FINDINGS: The heart is unremarkable. The lung bases are clear. Thickening of the fissure on the left is stable compared to the prior exam. Proteinaceous cyst is seen in the mid left kidney. No hydronephrosis or renal calculi. The urinary bladder is nondistended. No perinephric fat stranding. The liver, spleen, pancreas and adrenal glands have a normal appearance. The gallbladder is surgically absent. There is no pathologically enlarged mesenteric or retroperitoneal adenopathy. The bowel loops are nondilated. There is no free fluid or free air. No acute osseous abnormalities. Chronic height loss is seen in the superior endplate of L5. There is no free air, loculated collection or adenopathy in the pelvis. IMPRESSION: No acute abnormality in the abdomen or pelvis. No bowel obstruction, free fluid or free air. No acute inflammatory changes. Dictated by: Dictated on workstation # [id number]
[2022-05-10 22:00] VITALS: BP 155/85
== END 2022-05-10 22:00 | disposition home or self-care (01) ==
LOC: EDUNIT# 20:19 → ER FS 20:22
DX: K64.4 Residual hemorrhoidal skin tags (principal)
CPT/HCPCS: 36415; 74176; 80053; 85025; 86141

== ENCOUNTER 2023-01-26 15:28 | Observation (INO) | payer BC ==
[2023-01-26] VITALS (12 sets, daily range): BP systolic 108–158; BP diastolic 68–108
[~2023-01-26] VITALS: Ht 190 cm; Wt 126.2 kg
--- NOTE | 2023-01-26 15:55 | ED Cardiac General ---
History of Present Illness General Chief Complaint: Chest Pain Stated Complaint: DIZZY/LIGHTHEADED/NECK PAIN Nursing Triage Note: PT STATES SOB SINCE WEDNESDAY, OCCATIONAL COUGH, MID CHEST PRESSURE OFF AND ON, Source: patient Exam Limitations: no limitations History of Present Illness Date Seen by Provider: Jan 26, 2023 Time Seen by Provider: 15:55 Initial Comments Patient is a 47-year-old male who presents to the emergency room with a chief complaint of right-sided neck discomfort upper chest discomfort that he describes as a "tightness" onset sometime around Wednesday. He states he has an occasional cough but also with the chest discomfort it is exacerbated by exertion and he has a little clammy, sweatiness, nausea and shortness of breath. He states he has been remodeling a bathroom at home, was doing it last night and had the same symptoms. They tend to resolve with rest. He states occasionally the pain radiates between his shoulder blades, into his right arm. He has never had a stress test before (?). He does not see a doctor very often and is unsure if he has diabetes. He does not take medications for hypertension. He is not and has not ever been a smoker. States he occasionally drinks too much soda. No recent fevers, chills, congestion. No current chest or right neck discomfort. He states his father started developing cardiac issues around his age 49. He also has an older brother who has heart disease. All other review of systems reviewed and negative except as stated Timing/Duration: 3-4 days Severity: moderate Location: back, other (right neck) Activities at Onset: activity Prior CP/Workup: no prior cardiac workup NTG SL SENIOR MECHANICAL DESIGN ENGINEER: No ASA po SENIOR MECHANICAL DESIGN ENGINEER: No Associated Systoms: Nausea/Vomiting, Shortness of Air Allergies and Home Medications Allergies Coded Allergies: No Known Drug Allergies (Unverified , 07/24/20) Patient Home Medication List Home Medication List Reviewed: Yes Acetaminophen (Tylenol Extra Strength) 500 Mg Tablet, 1,000 MG PO Q8H PRN for PAIN-MILD (1-4), (Reported) Entered as Reported by: LUZ MARIA SOTO on 01/27/23 1201 Last Action: Reviewed Amlodipine Besylate (Amlodipine Besylate) 10 Mg Tablet, 10 MG PO DAILY Prescribed by: KAMI GOMEZ on 01/27/23 1407 Aspirin (Children's Aspirin) 81 Mg Tab.chew, 81 MG PO DAILY Prescribed by: EUGENE BECK on 01/28/23 0648 Duloxetine HCl (Duloxetine HCl) 30 Mg Capsule.dr, 30 MG PO HS, (Reported) Entered as Reported by: FREDDIE SCHMITT on 01/26/23 1928 Last Action: Reviewed Ibuprofen (Ibuprofen) 200 Mg Tablet, 400 MG PO Q8H PRN for PAIN-MILD (1-4), (Reported) Entered as Reported by: LUZ MARIA SOTO on 01/27/23 1201 Last Action: Reviewed Loratadine (Claritin) 10 Mg Tablet, 10 MG PO DAILY PRN for ALLERGY SYMPTOMS, (Reported) Entered as Reported by: LUZ MARIA SOTO on 06/13/20 141 Last Action: Reviewed Losartan Potassium (Losartan Potassium) 100 Mg Tablet, 100 MG PO DAILY Prescribed by: KAMI GOMEZ on 01/27/23 1407 Discontinued Medications Amlodipine Besylate (Amlodipine Besylate) 10 Mg Tablet, 10 MG PO DAILY, (Reported) Discontinued Reason: No Longer Taking Entered as Reported by: COLLINS GONZALES on 07/24/20 0856 Last Action: Discontinued Atorvastatin Calcium (Atorvastatin Calcium) 40 Mg Tablet, 40 MG PO HS, (Reported) Discontinued Reason: No Longer Taking Entered as Reported by: JIAN BOLDEN on 06/12/201827 Last Action: Discontinued Carvedilol (Carvedilol) 12.5 Mg Tablet, 12.5 MG PO BID WITH MEALS, (Reported) Discontinued Reason: No Longer Taking Entered as Reported by: JIAN BOLDEN on 06/12/201827 Last Action: Discontinued Clonidine HCl (Clonidine HCl) 0.1 Mg Tablet, 0.1 MG PO PRN PRN for BLOOD PRESSURE, (Reported) Discontinued Reason: No Longer Taking Entered as Reported by: LUZ MARIA SOTO on 06/13/20 141 Last Action: Discontinued Ketoconazole (Ketoconazole) 15 Gm Cream..g., 1 APPLIC TP PRN PRN for RASH, (Reported) Discontinued Reason: No Longer Taking Entered as Reported by: LUZ MARIA SOTO on 06/13/20 1415 Last Action: Discontinued Lisinopril (Lisinopril) 20 Mg Tablet, 20 MG PO DAILY, (Reported) Discontinued Reason: No Longer Taking Entered as Reported by: COLLINS GONZALES on 07/24/20 0856 Last Action: Discontinued Nitroglycerin (Nitroglycerin) 0.4 Mg Tab.subl, 0.4 MG SL UD PRN for CHEST PAIN, (Reported) Discontinued Reason: No Longer Taking Entered as Reported by: LUZ MARIA SOTO on 06/13/20 1410 Last Action: Discontinued Pantoprazole Sodium (Pantoprazole Sodium) 40 Mg Tablet.dr, 40 MG PO DAILY, (Reported) Discontinued Reason: No Longer Taking Entered as Reported by: JIAN BOLDEN on 06/12/20 1828 Last Action: Discontinued Prednisone (Prednisone) 20 Mg Tab, 40 MG PO DAILY Discontinued Reason: No Longer Taking Prescribed by: ROBERTO JOSHI on 01/05/21 0952 Last Action: Discontinued Triamcinolone Acet (Triamcinolone Acetonide 0.1% Ointment) 15 Gm Oint, 1 APPLIC TP UD PRN for RASH, (Reported) Discontinued Reason: No Longer Taking Entered as Reported by: LUZ MARIA SOTO on 06/13/20 1415 Last Action: Discontinued Zinc Oxide (Zinc Oxide) 57 Gm Oint...g., 1 APPLIC TP UD PRN for RASH, (Reported) Discontinued Reason: No Longer Taking Entered as Reported by: LUZ MARIA SOTO on 06/13/20 141 Last Action: Discontinued Review of Systems Review of Systems Constitutional: see HPI EENTM: No Symptoms Reported Respiratory: SOA With Exertion Cardiovascular: Chest Pain Gastrointestinal: Nausea Genitourinary: No Symptoms Reported Musculoskeletal: no symptoms reported Skin: no symptoms reported Psychiatric/Neurological: No Symptoms Reported Past Vmbiuyz-Nqdjfj-Yqnluy Hx Patient Social History Tobacco Use?: No Substance use?: No Alcohol Use?: No Immunizations Up To Date Second COVID19 Vaccination Kal: YES 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 Seasonal Allergies Seasonal Allergies: Yes Past Medical History Surgery/Hospitalization HX: SOLO, HERNIA, APPE, RT KNEE SCOPE, NECK Surgeries: Yes (hernia, knee surgery, neck surgery) Abdominal, Appendectomy, Coronary Stent, Gallbladder, Orthopedic Respiratory: Yes Sleep Apnea Currently Using CPAP: No Currently Using BIPAP: No Cardiac: Yes (Heart cath-2010?) Coronary Artery Disease, High Cholesterol, Hypertension Neurological: No Reproductive Disorders: No Sexually Transmitted Disease: No HIV/AIDS: No Genitourinary: No Gastrointestinal: Yes Gastroesophageal Reflux Musculoskeletal: Yes Arthritis, Chronic Back Pain Endocrine: No HEENT: No (GLASSES) Loss of Vision: Denies Hearing Impairment: Denies Cancer: Yes Lymphoma Did You Recieve Any Treatments: No Psychosocial: No Integumentary: No Blood Disorders: No Adverse Reaction/Blood Tranf: No (N/A) Family Medical History No Pertinent Family Hx Physical Exam Vital Signs Vital Signs - First Documented 01/26/23 15:35 Temp 37.1 Pulse 92 Resp 20 B/P (MAP) 142/103 (116) Pulse Ox 96 O2 Delivery Room Air Capillary Refill : Less Than 3 Seconds Height, Weight, BMI Height: '" Weight: lbs. oz. kg; 35.00 BMI Method:Stated General Appearance: No Apparent Distress, WD/WN HEENT: PERRL/EOMI Neck: Normal Inspection Respiratory: Lungs Clear, Normal Breath Sounds, No Accessory Muscle Use, No Respiratory Distress Cardiovascular: Regular Rate, Rhythm, Normal Peripheral Pulses Gastrointestinal: Normal Bowel Sounds, Non Tender, Soft Extremity: Normal Capillary Refill, Normal Inspection, Normal Range of Motion, Non Tender, No Pedal Edema Neurologic/Psychiatric: Alert, Oriented x3, No Motor/Sensory Deficits, Normal Mood/Affect Skin: Normal Color, Warm/Dry Progress/Results/Core Measures Results/Orders Lab Results Laboratory Tests Test 01/26/23 15:50 Range/Units White Blood Count 9.9 4.3-11.0 10^3/uL Red Blood Count 5.74 H 4.30-5.52 10^6/uL Hemoglobin 17.0 13.3-17.7 g/dL Hematocrit 50 40-54 % Mean Corpuscular Volume 87 80-99 fL Mean Corpuscular Hemoglobin 30 25-34 pg Mean Corpuscular Hemoglobin Concent 34 32-36 g/dL Red Cell Distribution Width 13.0 10.0-14.5 % Platelet Count 241 130-400 10^3/uL Mean Platelet Volume 11.2 9.0-12.2 fL Immature Granulocyte % (Auto) 1 % Neutrophils (%) (Auto) 50 42-75 % Lymphocytes (%) (Auto) 29 12-44 % Monocytes (%) (Auto) 14 H 0-12 % Eosinophils (%) (Auto) 5 0-10 % Basophils (%) (Auto) 1 0-10 % Neutrophils # (Auto) 4.9 1.8-7.8 10^3/uL Lymphocytes # (Auto) 2.9 1.0-4.0 10^3/uL Monocytes # (Auto) 1.4 H 0.0-1.0 10^3/uL Eosinophils # (Auto) 0.5 H 0.0-0.3 10^3/uL Basophils # (Auto) 0.1 0.0-0.1 10^3/uL Immature Granulocyte # (Auto) 0.1 0.0-0.1 10^3/uL Prothrombin Time 14.1 12.2-14.7 SEC INR Comment 1.0 0.8-1.4 Activated Partial Thromboplast Time 28 24-35 SEC Sodium Level 139 135-145 MMOL/L Potassium Level 3.8 3.6-5.0 MMOL/L Chloride Level 107 98-107 MMOL/L Carbon Dioxide Level 20 L 21-32 MMOL/L Anion Gap 12 5-14 MMOL/L Blood Urea Nitrogen 9 7-18 MG/DL Creatinine 1.13 0.60-1.30 MG/DL Estimat Glomerular Filtration Rate 80 BUN/Creatinine Ratio 8 Glucose Level 109 H 70-105 MG/DL Calcium Level 9.6 8.5-10.1 MG/DL Corrected Calcium 9.6 8.5-10.1 MG/DL Magnesium Level 2.1 1.6-2.4 MG/DL Total Bilirubin 0.6 0.1-1.0 MG/DL Aspartate Amino Transf (AST/SGOT) 44 H 5-34 U/L Alanine Aminotransferase (ALT/SGPT) 68 H 0-55 U/L Alkaline Phosphatase 70 40-136 U/L Troponin I < 0.028 <0.028 NG/ML Total Protein 7.4 6.4-8.2 GM/DL Albumin 4.0 3.2-4.5 GM/DL My Orders Orders - CORIE SOSA MD Ekg Tracing (01/26/23 15:53) Cbc With Automated Diff (01/26/23 16:09) Magnesium (01/26/23 16:09) Chest 1 View, Ap/Pa Only (01/26/23 16:09) Comprehensive Metabolic Panel (01/26/23 16:09) Protime With Inr (01/26/23 16:09) Partial Thromboplastin Time (01/26/23 16:09) O2 (01/26/23 16:09) Monitor-Rhythm Ecg Trace Only (01/26/23 16:09) Lipid Panel (01/27/23 06:00) Ed Iv/Invasive Line Start (01/26/23 16:09) Troponin I [place] (01/26/23 16:09) Aspirin Chewable Tablet (Baby Aspirin Ch (01/26/23 16:15) Enoxaparin Injection (Lovenox Injection) (01/26/23 17:42) Enoxaparin Injection (Lovenox Injection) (01/26/23 17:42) Enoxaparin Injection (Lovenox Injection) (01/26/23 18:00) Enoxaparin Injection (Lovenox Injection) (01/26/23 18:00) Ed Admission (Communication) (01/26/23 18:11) Medications Given in ED Vital Signs/I&O 01/26/23 01/26/23 15:35 18:30 Temp 37.1 37.1 Pulse 92 90 Resp 20 20 B/P (MAP) 142/103 (116) 144/107 Pulse Ox 96 97 O2 Delivery Room Air Room Air Blood Pressure Mean: 116 Admisison Planning May Need Admission (Planning): 16:14 Progress Progress Note : Time: 16:35 Progress Note Review of the medical record, prior ED visit shows that the patient had told the prior provider that at some point approximately 5 to 7 years ago he did have cardiac angiogram with a stent placed at [facility]. When I asked the patient about this he believes that it might have been Dr. Cook at [facility]. He states he remembers the cardiac cath but not sure what interventions he had. I reiterated with the patient that he is only taking Cymbalta currently no blood pressure medications and he states that is correct. Patient seen and examined by me. Evaluation today includes physical exam, CBC, Chem-12,, EKG, single view chest x-ray troponin magnesium. Physical exam pertinent for well-developed well-nourished moderately obese male in no acute distress. HEENT exam is unremarkable heart is regular, lungs are clear. No lower extremity edema. Neuro nonfocal. Differential diagnosis based on history and physical exam, unstable angina, NSTEMI, hypertensive urgency/emergency. Labs reviewed, CBC is normal, chemistry is normal, troponin is undetectable. Coags are within normal limits. EKG shows a normal sinus rhythm without ectopy at [address] segment elevation or depression is noted. Chest x-ray shows some mild cardiomegaly and mild central vascular prominence. Patient is slightly hypertensive diastolic a little over 100. Treated with full-strength aspirin. Asymptomatic at presentation however history is concerning for unstable angina. Case was discussed with Dr. Taylor Beck, hospitalist on for [facility] who accepts the patient for observation admission to cardiac stepdown. I also discussed the case with Dr. Gomez clinical transformation specialist on-call who recommended amlodipine 10 mg, losartan 100 mg, Lovenox twice daily, daily baby aspirin, n.p.o. after midnight and repeat troponin in the morning. Patient has been advised of the plan of care and is agreeable. Initial ECG Impression Date: Jan 26, 2023 Initial ECG Impression Time: 16:02 Initial ECG Rate: 92 Initial ECG Rhythm: Normal Sinus Initial ECG Intervals: Normal Initial ECG Impression: Normal Initial ECG Comparisson: No Previous ECG Available Diagnostic Imaging Diagonstic Imaging: Xray Plain Films/CT/US/NM/MRI: chest Comments NAME: [facility] REC#: [id number] PT STATUS: REG ER : 1975 PHYSICIAN: CORIE SOSA MD ADMIT DATE: 01/26/23/ER Draft Date of Exam:01/26/23 CHEST 1 VIEW, AP/PA ONLY INDICATION: Chest pain. TECHNIQUE: Frontal chest obtained at 04:14 p.m. and compared to 06/12/2020. FINDINGS: The heart is mildly enlarged. There is mild central vascular prominence without joel edema. There is no consolidation or pleural fluid. IMPRESSION: Cardiomegaly and mild central vascular prominence. No consolidation or pleural fluid. Dictated on workstation # [id number] Dict: 01/26/23 1631 Trans: 01/26/23 1635 [id number] Interpreted by: SETH PINEDA MD Electronically signed by: Departure Communication (Admissions) Time/Spoke to Admitting Phy: 17:[address] Beck ([facility] Hospitalist) Time/Spoke to Consulting Phy: 17:[address] Gomez (cardiology) Impression Primary Impression: Unstable angina Additional Impression: High blood pressure Qualified Codes: I10 - Essential (primary) hypertension Disposition: ADMITTED INPATIENT Condition: Stable Admissions Decision to Admit Reason: Admit from ER (General) Decision to Admit/Date: Jan 26, 2023 Time/Decision to Admit Time: 16:39 Departure-Patient Inst. Referrals: [facility] (PCP) Primary Care Physician ANAND GROVER APRN (Family) Primary Care Physician Scripts Aspirin (Children's Aspirin) 81 Mg Tab.chew 81 MG PO DAILY, #30 TAB Prov: EUGENE BECK DO 01/28/23 Losartan Potassium (Losartan Potassium) 100 Mg Tablet 100 MG PO DAILY, #30 TAB 3 Refills Prov: KAMI GOMEZ MD 01/27/23 Amlodipine Besylate (Amlodipine Besylate) 10 Mg Tablet 10 MG PO DAILY, #30 TAB 3 Refills Prov: KAMI GOMEZ MD 01/27/23 Copy Copies To 1: MATIAS BENJAMIN DO Copies To 2: KAMI GOMEZ MD, KATHRYN M MD Jan 26, 2023 15:55
[2023-01-26] MEDS ORDERED: ASPIRIN 81 MG CHEW (CHILDREN'S ASA) PO ONE (16:15)
[2023-01-26 16:28] LABS: POTASSIUM 3.8 MMOL/L (3.6-5.0)
[2023-01-26 16:29] LABS: CALCIUM 9.6 MG/DL (8.5-10.1)
[2023-01-26 16:31] LABS: TOTAL PROTEIN 7.4 GM/DL (6.4-8.2)
[2023-01-26 16:33] LABS: BILIRUBIN,TOTAL 0.6 MG/DL (0.1-1.0)
[2023-01-26 16:34] LABS: CREATININE SERUM 1.13 MG/DL (0.60-1.30)
--- NOTE | 2023-01-26 16:35 | Diagnostic Imaging Report ---
INDICATION: Chest pain. TECHNIQUE: Frontal chest obtained at 04:14 p.m. and compared to 06/12/2020. FINDINGS: The heart is mildly enlarged. There is mild central vascular prominence without joel edema. There is no consolidation or pleural fluid. IMPRESSION: Cardiomegaly and mild central vascular prominence. No consolidation or pleural fluid. Dictated by: Dictated on workstation # [id number]
[2023-01-26 16:37] LABS: MAGNESIUM 2.1 MG/DL (1.6-2.4)
[2023-01-26 16:41] LABS: BASOPHILS # (AUTO) 0.1 10^3/uL (0.0-0.1); BASOPHILS % (AUTO) 1 % (0-10); EOSINOPHILS # (AUTO) 0.5 10^3/uL (0.0-0.3); EOSINOPHILS % (AUTO) 5 % (0-10); HEMATOCRIT 50 % (40-54); LYMPHOCYTES # (AUTO) 2.9 10^3/uL (1.0-4.0); LYMPHOCYTES % (AUTO) 29 % (12-44); MEAN CORPUSCULAR HEMOGLOBIN 30 pg (25-34); MEAN CORPUSCULAR HGB CONC 34 g/dL (32-36); MEAN CORPUSCULAR VOLUME 87 fL (80-99); MEAN PLATELET VOLUME 11.2 fL (9.0-12.2); MONOCYTES # (AUTO) 1.4 10^3/uL (0.0-1.0); MONOCYTES % (AUTO) 14 % (0-12); NEUTROPHILS # (AUTO) 4.9 10^3/uL (1.8-7.8); NEUTROPHILS % (AUTO) 50 % (42-75); PLATELET COUNT 241 10^3/uL (130-400); WHITE BLOOD COUNT 9.9 10^3/uL (4.3-11.0)
[2023-01-26 16:49] LABS: PROTHROMBIN TIME PATIENT 14.1 SEC (12.2-14.7)
[2023-01-26] MEDS ORDERED: ENOXAPARIN 120 MG/0.8 ML (LOVENOX) SQ ONE (17:30)
[2023-01-26] MEDS ORDERED: ENOXAPARIN INJECTION 30 MG/0.3 ML SYR ONE (17:42)
[2023-01-26] MEDS ORDERED: ENOXAPARIN 100 MG/1 ML (LOVENOX) SYR ONE (17:42)
[2023-01-26] MEDS ORDERED: ENOXAPARIN INJECTION 30 MG/0.3 ML SYR SC ONE (18:00)
[2023-01-26] MEDS ORDERED: ENOXAPARIN 100 MG/1 ML (LOVENOX) SYR SC ONE (18:00)
[2023-01-26] MEDS ORDERED: ONDANSETRON 4 MG (ZOFRAN) ORAL DISSOLVE TAB PO PRN (18:30)
[2023-01-26] MEDS ORDERED: CALCIUM CARBONATE 500 MG (TUMS) TAB.CHEW PO PRN (18:30)
[2023-01-26] MEDS ORDERED: cloNIDine 0.1 MG (CATAPRES) TAB PO PRN (18:30)
[2023-01-26] MEDS ORDERED: ALPRAZolam 0.5 MG (XANAX) TAB PO PRN (18:30)
[2023-01-26] MEDS ORDERED: morphine INJ 4 MG/ML 1 ML (VIAL/SYRINGE) IV PRN (18:30)
[2023-01-26] MEDS ORDERED: ENOXAPARIN 100 MG/1 ML (LOVENOX) SYR SC SCH (18:30)
[2023-01-26] MEDS ORDERED: MELATONIN 3 MG TABLET PO PRN (18:30)
[2023-01-26] MEDS ORDERED: ACETAMINOPHEN 325 MG TABLET PO PRN (18:30)
[2023-01-26] MEDS ORDERED: polyethylene glycoL POWDER 17 GM (MIRALAX) PACK PO PRN (18:30)
[2023-01-26] MEDS ORDERED: ONDANSETRON 4 MG/2 ML (SDV) Z0FRAN IV PRN (18:30)
[2023-01-26] MEDS ORDERED: ANTACID SUSP 30 ML UDC (MYLANTA) PO PRN (18:30)
[2023-01-26] MEDS ORDERED: BISACODYL 10 MG SUPP (DULCOLAX) PR PRN (18:30)
[2023-01-26] MEDS ORDERED: diphenhydrAMINE 25 MG TAB (BENADRYL) PO PRN (18:30)
[2023-01-26] MEDS ORDERED: diphenhydrAMINE 50 MG/ML INJ (BENADRYL) IVP PRN (18:30)
[2023-01-26] MEDS ORDERED: LACTULOSE SYRUP 10GM/15ML (ENULOSE) 30ML UDC PO PRN (18:30)
[2023-01-26] MEDS ORDERED: MILK OF MAGNESIA 400 MG/5 ML 30 ML UDC PO PRN (18:30)
[2023-01-26] MEDS ORDERED: NALOXONE 0.4 MG/ML 1 ML (NARCAN) VIAL IV PRN (18:30)
[2023-01-26] MEDS ORDERED: DULO30CA49 PO (19:28)
[2023-01-26] MEDS ORDERED: RT-ALBUTEROL SULF 2.5 MG/3 ML PRE-MIX VIAL INH PRN (21:00)
[2023-01-26] MEDS: SENNOSIDES 8.6 MG (SENOKOT) TAB PO SCH (21:07)
[2023-01-26] MEDS: DOCUSATE SODIUM 100 MG (COLACE) CAP PO SCH (21:07)
[2023-01-27] VITALS (8 sets, daily range): BP systolic 103–172; BP diastolic 67–104
[2023-01-27] MEDS: ENOXAPARIN 300 MG/3 ML (LOVENOX) MULTI-DOSE VIAL SQ SCH ×2 (05:37→18:10)
[2023-01-27 06:26] LABS: BASOPHILS # (AUTO) 0.1 10^3/uL (0.0-0.1); BASOPHILS % (AUTO) 1 % (0-10); EOSINOPHILS # (AUTO) 0.5 10^3/uL (0.0-0.3); EOSINOPHILS % (AUTO) 6 % (0-10); HEMATOCRIT 50 % (40-54); HEMOGLOBIN 17.2 g/dL (13.3-17.7); LYMPHOCYTES # (AUTO) 2.6 10^3/uL (1.0-4.0); LYMPHOCYTES % (AUTO) 33 % (12-44); MEAN CORPUSCULAR HEMOGLOBIN 30 pg (25-34); MEAN CORPUSCULAR HGB CONC 34 g/dL (32-36); MEAN CORPUSCULAR VOLUME 88 fL (80-99); MEAN PLATELET VOLUME 10.4 fL (9.0-12.2); MONOCYTES # (AUTO) 1.1 10^3/uL (0.0-1.0); MONOCYTES % (AUTO) 14 % (0-12); NEUTROPHILS # (AUTO) 3.5 10^3/uL (1.8-7.8); NEUTROPHILS % (AUTO) 46 % (42-75); PLATELET COUNT 210 10^3/uL (130-400); WHITE BLOOD COUNT 7.8 10^3/uL (4.3-11.0)
[2023-01-27 06:46] LABS: ALANINE AMINOTRANSFERASE 66 U/L (0-55); ALBUMIN 3.7 GM/DL (3.2-4.5); ALKALINE PHOSPHATASE 67 U/L (40-136); BILIRUBIN,TOTAL 0.6 MG/DL (0.1-1.0); BUN/CREATININE RATIO 10; CALCIUM 9.3 MG/DL (8.5-10.1); CARBON DIOXIDE 21 MMOL/L (21-32); CHLORIDE 109 MMOL/L (98-107); CHOLESTEROL 198 MG/DL (< 200); GFR ESTIMATED 92; GLUCOSE 100 MG/DL (70-105); HDL CHOLESTEROL 39 MG/DL (40-60); POTASSIUM 3.7 MMOL/L (3.6-5.0); SODIUM 139 MMOL/L (135-145); TOTAL PROTEIN 6.9 GM/DL (6.4-8.2); TRIGLYCERIDES 121 MG/DL (<150); VLDL CHOLESTEROL 24 MG/DL (5-40)
[2023-01-27] MEDS: DOCUSATE SODIUM 100 MG (COLACE) CAP PO SCH ×2 (09:00→21:02)
[2023-01-27] MEDS: SENNOSIDES 8.6 MG (SENOKOT) TAB PO SCH ×2 (09:00→21:02)
--- NOTE | 2023-01-27 09:24 | Consultation-Cardiology ---
HPI-Cardiology Cardiology Consultation Date of Consultation 01/27/23 Date of Admission Time Seen by Provider: 09:21 Indication: Chest pain HPI 47 years old gentleman with history of coronary artery disease, reporting that he had a cardiac catheterization and 2 stents placed about 5 years ago at [facility]. Was doing well until yesterday when he started to have chest pain de scribed as dull achiness in the retrosternal area and right shoulder radiating to the back. This morning still having mild chest discomfort, EKG and cardiac enzymes did not show any acute abnormality. Home Medications & Allergies Allergies: Coded Allergies: No Known Drug Allergies (Unverified , 07/24/20) Home Medication List Reviewed: Yes QAP-Asxyed-Jgipkp Hx Patient Social History Marital Status: Smoking Status: Never a Smoker 2nd Hand Smoke Exposure: No Recent Hopitalizations: No Have you traveled recently?: No Alcohol Use?: Yes Immunizations Up To Date Date of Pneumonia Vaccine: Nov 08, 2008 Date of Influenza Vaccine: Aug 08, 2022 Past Medical History Discussed below Family Medical History Significant Family History: No Pertinent Family Hx Family Medical Hx Noncontributory Review of Systems-General Review of Systems Constitutional: see HPI EENTM: see HPI, no symptoms reported Respiratory: see HPI; No cough; dyspnea on exertion; No hemoptysis, No orthopnea, No phlegm, No short of breath, No stridor, No wheezing, No other Cardiovascular: see HPI, chest pain; No edema, No Hx of Intervention, No palpitations, No syncope, No vascular heart diseas, No other Gastrointestinal: no symptoms reported, see HPI Genitourinary: no symptoms reported, see HPI Musculoskeletal: no symptoms reported Skin: no symptoms reported Psychiatric/Neurological: No Symptoms Reported Reviewed Test Results Reviewed Test Results Lab Laboratory Tests Test 01/26/23 15:50 01/27/23 06:16 Range/Units White Blood Count 9.9 7.8 4.3-11.0 10^3/uL Red Blood Count 5.74 H 5.71 H 4.30-5.52 10^6/uL Hemoglobin 17.0 17.2 13.3-17.7 g/dL Hematocrit 50 50 40-54 % Mean Corpuscular Volume 87 88 80-99 fL Mean Corpuscular Hemoglobin 30 30 25-34 pg Mean Corpuscular Hemoglobin Concent 34 34 32-36 g/dL Red Cell Distribution Width 13.0 13.0 10.0-14.5 % Platelet Count 241 210 130-400 10^3/uL Mean Platelet Volume 11.2 10.4 9.0-12.2 fL Immature Granulocyte % (Auto) 1 0 % Neutrophils (%) (Auto) 50 46 42-75 % Lymphocytes (%) (Auto) 29 33 12-44 % Monocytes (%) (Auto) 14 H 14 H 0-12 % Eosinophils (%) (Auto) 5 6 0-10 % Basophils (%) (Auto) 1 1 0-10 % Neutrophils # (Auto) 4.9 3.5 1.8-7.8 10^3/uL Lymphocytes # (Auto) 2.9 2.6 1.0-4.0 10^3/uL Monocytes # (Auto) 1.4 H 1.1 H 0.0-1.0 10^3/uL Eosinophils # (Auto) 0.5 H 0.5 H 0.0-0.3 10^3/uL Basophils # (Auto) 0.1 0.1 0.0-0.1 10^3/uL Immature Granulocyte # (Auto) 0.1 0.0 0.0-0.1 10^3/uL Prothrombin Time 14.1 12.2-14.7 SEC INR Comment 1.0 0.8-1.4 Activated Partial Thromboplast Time 28 24-35 SEC Sodium Level 139 139 135-145 MMOL/L Potassium Level 3.8 3.7 3.6-5.0 MMOL/L Chloride Level 107 109 H 98-107 MMOL/L Carbon Dioxide Level 20 L 21 21-32 MMOL/L Anion Gap 12 9 5-14 MMOL/L Blood Urea Nitrogen 9 10 7-18 MG/DL Creatinine 1.13 1.00 0.60-1.30 MG/DL Estimat Glomerular Filtration Rate 80 92 BUN/Creatinine Ratio 8 10 Glucose Level 109 H 100 70-105 MG/DL Calcium Level 9.6 9.3 8.5-10.1 MG/DL Corrected Calcium 9.6 9.5 8.5-10.1 MG/DL Magnesium Level 2.1 1.6-2.4 MG/DL Total Bilirubin 0.6 0.6 0.1-1.0 MG/DL Aspartate Amino Transf (AST/SGOT) 44 H 42 H 5-34 U/L Alanine Aminotransferase (ALT/SGPT) 68 H 66 H 0-55 U/L Alkaline Phosphatase 70 67 40-136 U/L Troponin I < 0.028 < 0.028 <0.028 NG/ML Total Protein 7.4 6.9 6.4-8.2 GM/DL Albumin 4.0 3.7 3.2-4.5 GM/DL Triglycerides Level 121 <150 MG/DL Cholesterol Level 198 < 200 MG/DL LDL Cholesterol Direct 146 H 1-129 MG/DL VLDL Cholesterol 24 5-40 MG/DL HDL Cholesterol 39 L 40-60 MG/DL Physical Exam Physical Exam Vital Signs Vital Signs - First Documented 01/26/23 01/26/23 15:35 20:11 Temp 37.1 Pulse 92 Resp 20 B/P (MAP) 142/103 (116) Pulse Ox 96 O2 Delivery Room Air FiO2 21 Capillary Refill : Less Than 3 Seconds Height, Weight, BMI Height: '" Weight: lbs. oz. kg; 34.90 BMI Method:Stated General Appearance: No Apparent Distress, WD/WN Eyes: Bilateral Eye Normal Inspection, Bilateral Eye PERRL, Bilateral Eye EOMI HEENT: PERRL/EOMI Neck: Normal Inspection Respiratory: Lungs Clear, Normal Breath Sounds, No Accessory Muscle Use, No Respiratory Distress Cardiovascular: Regular Rate, Rhythm, Normal Peripheral Pulses Gastrointestinal: Normal Bowel Sounds, Non Tender, Soft Back: Normal Inspection, No CVA Tenderness, No Vertebral Tenderness Extremity: Normal Capillary Refill, Normal Inspection, Normal Range of Motion, Non Tender, No Pedal Edema Neurologic/Psychiatric: Alert, Oriented x3, No Motor/Sensory Deficits, Normal Mood/Affect Skin: Normal Color, Warm/Dry Lymphatic: No Adenopathy A/P-Cardiology Admission Diagnosis Chest pain Coronary artery disease Hypertension Hyperlipidemia Assessment/Plan Chest pain nonspecific etiology, resembling angina EKG and cardiac enzymes did not show any acute abnormality Planning for stress test and echocardiogram today Coronary artery disease, history of cardiac catheterization done in [address] Chairez, had mild disease nonobstructive disease Patient is reporting that he had a cardiac catheterization at [facility] about 5 years ago required 2 stents. 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
[2023-01-27] MEDS ORDERED: CATHETER FLUSH 10 ML SYR IVP PRN (11:00)
[2023-01-27] MEDS ORDERED: IBUP-2473 PO (12:01)
[2023-01-27] MEDS ORDERED: ACET-2267 PO (12:01)
--- NOTE | 2023-01-27 14:06 | Cardiology Stress Test Report ---
Stress Test Report Date of Procedure/Referring: Date of Procedure: Jan 27, 2023 PCP [facility] Admitting Physician Admitting Physician: Kelsie Alexander DO Attending Physician: Kelsie Alexander DO Indications: CP Baseline Heart Rate: 92 Baseline Blood Pressure: Blood Pressure Systolic: 134 Blood Pressure Diastolic: 100 Vital Signs Date Time Temp Pulse Resp B/P (MAP) Pulse Ox O2 Delivery O2 Flow Rate FiO2 01/26/23 15:35 37.1 92 20 142/103 (116) 96 Room Air 01/26/23 20:11 21 Baseline Vital Signs Vital Signs Date Time Temp Pulse Resp B/P (MAP) Pulse Ox O2 Delivery O2 Flow Rate FiO2 01/26/23 15:35 37.1 92 20 142/103 (116) 96 Room Air 01/26/23 20:11 21 Baseline EKG: Baseline EKG: NSR Summary: After explaining the procedure and details to the patient, he signed the consent and was brought to the stress nuclear laboratory. Patient exercised on standard Monty protocol, EKG, heart rate and blood pressure were monitored continuously, resting and stress doses of radio tracer were injected, imaging was acquired and reviewed in the short axis, horizontal long axis and vertical long axis views Patient was able to exercise for a total of 7 minutes on Monty protocol, METs 8.5 Maximum heart rate 149 Maximum blood pressure 144/100 Stress EKG, Minimal nondiagnostic changes Recovery EKG, Return to baseline TID: 0.95 SSS: 3 SDS: 3 EF: 57 Conclusion: Good exercise tolerance for 7 minutes on standard Monty protocol, 8.5 METS achieving 87% of maximal expected heart rate Appropriate heart rate response to exercise with hypertensive response to exercise with peak blood pressure 144/100 return to baseline during recovery Nondiagnostic EKG changes with exercise return to baseline during recovery No ischemia or infarction noted on SPECT images Normal left ventricular size, ejection fraction 57% Copy Copies To 1: KELSIE ALEXANDER BASHAR J MD Jan 27, 2023 14:06
[2023-01-27] MEDS ORDERED: LOSA100T57 PO (14:07)
[2023-01-27] MEDS ORDERED: AMLO-251 PO (14:07)
--- NOTE | 2023-01-27 14:46 | Short Stay Summary ---
HORTENSIA LYNCH 01/27/23 1446: History of Present Illness History of Present Illness Reason for visit/HPI Talha is a 47 yo M with a hx of CAD(stentsx2 placed [facility] in ~2018) who presented with chest tightness and pain. Talha says he has been remodeling his bathroom this past week. While working he began to get SOB, dizzy, and sweaty. He said this has been going on since wednesday. Two days ago while working he started to have chest tightness that radiated to his neck and back. He also had nausea. On admit he received cardiac w/u and had a normal troponin and ekg. CXR was negative for cardiopulmonary acute processes. Today Talha says he is feeling better but says his chest feels tight. He underwent a stress test today and results were nonischemic and showed a normal EF. He is agreeable to f/u as an outpatient. Date of Admission Jan 26, 2023 at 18:33 Date of Discharge January 26, 2023 Time Seen by Provider: 09:30 Attending Physician [facility] Admitting Physician Admitting Physician: Kelsie Beck DO Attending Physician: Kelsie Beck DO Consult Allergies and Home Medications Allergies Coded Allergies: No Known Drug Allergies (Unverified , 07/24/20) Patient Home Medication List Home Medication List Reviewed: Yes Acetaminophen (Tylenol Extra Strength) 500 Mg Tablet, 1,000 MG PO Q8H PRN for PAIN-MILD (1-4), (Reported) Entered as Reported by: LUZ MARIA SOTO on 01/27/23 1201 Last Action: Reviewed Amlodipine Besylate (Amlodipine Besylate) 10 Mg Tablet, 10 MG PO DAILY Prescribed by: KAMI SCRUGGS on 01/27/23 1407 Duloxetine HCl (Duloxetine HCl) 30 Mg Capsule.dr, 30 MG PO HS, (Reported) Entered as Reported by: FREDDIE SCHMITT on 01/26/23 1928 Last Action: Reviewed Ibuprofen (Ibuprofen) 200 Mg Tablet, 400 MG PO Q8H PRN for PAIN-MILD (1-4), (Reported) Entered as Reported by: LUZ MARIA SOTO on 01/27/23 1201 Last Action: Reviewed Loratadine (Claritin) 10 Mg Tablet, 10 MG PO DAILY PRN for ALLERGY SYMPTOMS, (Reported) Entered as Reported by: LUZ MARIA SOTO on 06/13/201409 Last Action: Reviewed Losartan Potassium (Losartan Potassium) 100 Mg Tablet, 100 MG PO DAILY Prescribed by: KAMI SCRUGGS on 01/27/23 1407 Discontinued Medications Amlodipine Besylate (Amlodipine Besylate) 10 Mg Tablet, 10 MG PO DAILY, (Reported) Discontinued Reason: No Longer Taking Entered as Reported by: COLLINS GONZALES on 07/24/20855 Last Action: Discontinued Atorvastatin Calcium (Atorvastatin Calcium) 40 Mg Tablet, 40 MG PO HS, (Reported) Discontinued Reason: No Longer Taking Entered as Reported by: JIAN BOLDEN on 06/12/201827 Last Action: Discontinued Carvedilol (Carvedilol) 12.5 Mg Tablet, 12.5 MG PO BID WITH MEALS, (Reported) Discontinued Reason: No Longer Taking Entered as Reported by: JIAN BOLDEN on 06/12/201827 Last Action: Discontinued Clonidine HCl (Clonidine HCl) 0.1 Mg Tablet, 0.1 MG PO PRN PRN for BLOOD PRESSURE, (Reported) Discontinued Reason: No Longer Taking Entered as Reported by: LUZ MARIA SOTO on 06/13/201409 Last Action: Discontinued Ketoconazole (Ketoconazole) 15 Gm Cream..g., 1 APPLIC TP PRN PRN for RASH, (Reported) Discontinued Reason: No Longer Taking Entered as Reported by: LUZ MARIA SOTO on 06/13/201414 Last Action: Discontinued Lisinopril (Lisinopril) 20 Mg Tablet, 20 MG PO DAILY, (Reported) Discontinued Reason: No Longer Taking Entered as Reported by: COLLINS GONZALES on 07/24/20855 Last Action: Discontinued Nitroglycerin (Nitroglycerin) 0.4 Mg Tab.subl, 0.4 MG SL UD PRN for CHEST PAIN, (Reported) Discontinued Reason: No Longer Taking Entered as Reported by: LUZ MARIA SOTO on 06/13/201409 Last Action: Discontinued Pantoprazole Sodium (Pantoprazole Sodium) 40 Mg Tablet.dr, 40 MG PO DAILY, (Reported) Discontinued Reason: No Longer Taking Entered as Reported by: JIAN BOLDEN on 06/12/201827 Last Action: Discontinued Prednisone (Prednisone) 20 Mg Tab, 40 MG PO DAILY Discontinued Reason: No Longer Taking Prescribed by: ROBERTO JOSHI on 01/05/21 0952 Last Action: Discontinued Triamcinolone Acet (Triamcinolone Acetonide 0.1% Ointment) 15 Gm Oint, 1 APPLIC TP UD PRN for RASH, (Reported) Discontinued Reason: No Longer Taking Entered as Reported by: LUZ MARIA SOTO on 06/13/20 1415 Last Action: Discontinued Zinc Oxide (Zinc Oxide) 57 Gm Oint...g., 1 APPLIC TP UD PRN for RASH, (Reported) Discontinued Reason: No Longer Taking Entered as Reported by: LUZ MARIA SOTO on 06/13/20 141 Last Action: Discontinued Past Eefzumt-[id number]-Sqcnnn Hx Patient Social History Marrital Status: Smoking Status: Never a Smoker 2nd Hand Smoke Exposure: No Recent Hopitalizations: No Have you traveled recently?: No Alcohol Use?: Yes Pt feels they are or have been: No Immunizations Up To Date Date of Pneumonia Vaccine: Nov 08, 2008 Date of Influenza Vaccine: Aug 08, 2022 Seasonal Allergies Seasonal Allergies: Yes Surgeries Yes (hernia, knee surgery, neck surgery) Abdominal, Appendectomy, Coronary Stent, Gallbladder, Orthopedic (Carpal tunnel sugery on L and R, R ulnar release surgery) Respiratory Yes Currently Using CPAP: No Currently Using BIPAP: No Cardiovascular Yes (Heart cath-2010?) Coronary Artery Disease, High Cholesterol, Hypertension Neurological Yes Neuropathy Reproductive System Hx Reproductive Disorders: No Sexually Transmitted Disease: No HIV/AIDS: No Genitourinary No Gastrointestinal Yes Gastroesophageal Reflux Musculoskeletal Yes Arthritis, Chronic Back Pain Endocrine History of Endocrine Disorders: No HEENT History of HEENT Disorders: No (GLASSES) Loss of Vision: Denies Hearing Impairment: Denies Cancer Yes Lymphoma Did You Recieve Any Treatments: No Psychosocial History of Psychiatric Problem: No Integumentary History of Skin or Integumenta: No Blood Transfusions History of Blood Disorders: No Adverse Reaction to a Blood Tr: No (N/A) Family Medical History Significant Family History: No Pertinent Family Hx Review of Systems Constitutional: No chills, No diaphoresis, No dizziness, No fever, No weakness EENTM: No vision loss Respiratory: cough, short of breath Cardiovascular: chest pain, Hx of Intervention; No palpitations Gastrointestinal: No abdominal pain, No constipation, No diarrhea; nausea; No vomiting Musculoskeletal: No back pain, No joint pain Skin: no symptoms reported Psychiatric/Neurological: No Symptoms Reported All Other Systems Reviewed Negative Unless Noted: Yes Physical Exam Vital Signs Vital Signs - First Documented 01/26/23 01/26/23 15:35 20:11 Temp 37.1 Pulse 92 Resp 20 B/P (MAP) 142/103 (116) Pulse Ox 96 O2 Delivery Room Air FiO2 21 Capillary Refill : Less Than 3 Seconds Height, Weight, BMI Height: '" Weight: lbs. oz. kg; 34.90 BMI Method:Stated General Appearance: No Apparent Distress, WD/WN Eyes: Bilateral Eye Normal Inspection, Bilateral Eye PERRL, Bilateral Eye EOMI HEENT: Moist Mucous Membranes; No Scleral Icterus (L), No Scleral Icterus (R) Neck: Non Tender, Supple; No JVD Respiratory: Lungs Clear, Normal Breath Sounds, No Accessory Muscle Use Cardiovascular: Regular Rate, Rhythm, No JVD, No Murmur, Normal Peripheral Pulses Gastrointestinal: Non Tender, Soft; No Distended Extremity: Normal Capillary Refill, Normal Inspection, No Calf Tenderness, No Pedal Edema Neurologic/Psychiatric: Alert, Oriented x3, No Motor/Sensory Deficits, Normal 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, 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 Norm as Tested Skin: Normal Color, Warm/Dry Clinical Quality Measures AMI/AHF: ASA po Prior to arrival: No Short Stay Diagnosis Discharge Diagnosis-Short Stay Admission Diagnosis: Chest pain Final Discharge Diagnosis: Chest pain, unspecified Conclusion Labs Laboratory Tests 01/26/23 15:50: White Blood Count 9.9, Red Blood Count 5.74H, Hemoglobin 17.0, Hematocrit 50, Mean Corpuscular Volume 87, Mean Corpuscular Hemoglobin 30, Mean Corpuscular Hemoglobin Concent 34, Red Cell Distribution Width 13.0, Platelet Count 241, Mean Platelet Volume 11.2, Immature Granulocyte % (Auto) 1, Neutrophils (%) (Auto) 50, Lymphocytes (%) (Auto) 29, Monocytes (%) (Auto) 14H, Eosinophils (%) (Auto) 5, Basophils (%) (Auto) 1, Neutrophils # (Auto) 4.9, Lymphocytes # (Auto) 2.9, Monocytes # (Auto) 1.4H, Eosinophils # (Auto) 0.5H, Basophils # (Auto) 0.1, Immature Granulocyte # (Auto) 0.1, Prothrombin Time 14.1, INR Comment 1.0, Activated Partial Thromboplast Time 28, Sodium Level 139, Potassium Level 3.8, Chloride Level 107, Carbon Dioxide Level 20L, Anion Gap 12, Blood Urea Nitrogen 9, Creatinine 1.13, Estimat Glomerular Filtration Rate 80, BUN/Creatinine Ratio 8, Glucose Level 109H, Calcium Level 9.6, Corrected Calcium 9.6, Magnesium Level 2.1, Total Bilirubin 0.6, Aspartate Amino Transf (AST/SGOT) 44H, Alanine Aminotransferase (ALT/SGPT) 68H, Alkaline Phosphatase 70, Troponin I < 0.028, Total Protein 7.4, Albumin 4.0 01/27/23 06:16: White Blood Count 7.8, Red Blood Count 5.71H, Hemoglobin 17.2, Hematocrit 50, Mean Corpuscular Volume 88, Mean Corpuscular Hemoglobin 30, Mean Corpuscular Hemoglobin Concent 34, Red Cell Distribution Width 13.0, Platelet Count 210, Mean Platelet Volume 10.4, Immature Granulocyte % (Auto) 0, Neutrophils (%) (Auto) 46, Lymphocytes (%) (Auto) 33, Monocytes (%) (Auto) 14H, Eosinophils (%) (Auto) 6, Basophils (%) (Auto) 1, Neutrophils # (Auto) 3.5, Lymphocytes # (Auto) 2.6, Monocytes # (Auto) 1.1H, Eosinophils # (Auto) 0.5H, Basophils # (Auto) 0.1, Immature Granulocyte # (Auto) 0.0, Sodium Level 139, Potassium Level 3.7, Chloride Level 109H, Carbon Dioxide Level 21, Anion Gap 9, Blood Urea Nitrogen 10, Creatinine 1.00, Estimat Glomerular Filtration Rate 92, BUN/Creatinine Ratio 10, Glucose Level 100, Calcium Level 9.3, Corrected Calcium 9.5, Total Bilirubin 0.6, Aspartate Amino Transf (AST/SGOT) 42H, Alanine Aminotransferase (ALT/SGPT) 66H, Alkaline Phosphatase 67, Troponin I < 0.028, Total Protein 6.9, Albumin 3.7, Triglycerides Level 121, Cholesterol Level 198, LDL Cholesterol Direct 146H , VLDL Cholesterol 24, HDL Cholesterol 39L Conclusion/Plan Chest pain, unspecified SOB -ekg non ischemic -troponinx2 wnL -Stress test non ischemic, EF normal Dispo: dc, follow up outpatient. KELSIE BECK DO 01/28/23 0506: Allergies and Home Medications Allergies Coded Allergies: No Known Drug Allergies (Unverified , 07/24/20) Patient Home Medication List Home Medication List Reviewed: Yes Acetaminophen (Tylenol Extra Strength) 500 Mg Tablet, 1,000 MG PO Q8H PRN for PAIN-MILD (1-4), (Reported) Entered as Reported by: LUZ MARIA SOTO on 01/27/23 1201 Last Action: Reviewed Amlodipine Besylate (Amlodipine Besylate) 10 Mg Tablet, 10 MG PO DAILY Prescribed by: KAMI SCRUGGS on 01/27/23 1407 Duloxetine HCl (Duloxetine HCl) 30 Mg Capsule.dr, 30 MG PO HS, (Reported) Entered as Reported by: FREDDIE SCHMITT on 01/26/23 192 Last Action: Reviewed Ibuprofen (Ibuprofen) 200 Mg Tablet, 400 MG PO Q8H PRN for PAIN-MILD (1-4), (Reported) Entered as Reported by: LUZ MARIA SOTO on 01/27/23 120 Last Action: Reviewed Loratadine (Claritin) 10 Mg Tablet, 10 MG PO DAILY PRN for ALLERGY SYMPTOMS, (Reported) Entered as Reported by: LUZ MARIA SOTO on 06/13/20 1410 Last Action: Reviewed Losartan Potassium (Losartan Potassium) 100 Mg Tablet, 100 MG PO DAILY Prescribed by: KAMI SCRUGGS on 01/27/23 1407 Discontinued Medications Amlodipine Besylate (Amlodipine Besylate) 10 Mg Tablet, 10 MG PO DAILY, (Reported) Discontinued Reason: No Longer Taking Entered as Reported by: COLLINS GONZALES on 07/24/20 0856 Last Action: Discontinued Atorvastatin Calcium (Atorvastatin Calcium) 40 Mg Tablet, 40 MG PO HS, (Reported) Discontinued Reason: No Longer Taking Entered as Reported by: JIAN BOLDEN on 06/12/201827 Last Action: Discontinued Carvedilol (Carvedilol) 12.5 Mg Tablet, 12.5 MG PO BID WITH MEALS, (Reported) Discontinued Reason: No Longer Taking Entered as Reported by: JIAN BOLDEN on 06/12/201827 Last Action: Discontinued Clonidine HCl (Clonidine HCl) 0.1 Mg Tablet, 0.1 MG PO PRN PRN for BLOOD PRESSURE, (Reported) Discontinued Reason: No Longer Taking Entered as Reported by: LUZ MARIA SOTO on 06/13/201409 Last Action: Discontinued Ketoconazole (Ketoconazole) 15 Gm Cream..g., 1 APPLIC TP PRN PRN for RASH, (Re ported) Discontinued Reason: No Longer Taking Entered as Reported by: LUZ MARIA SOTO on 06/13/201414 Last Action: Discontinued Lisinopril (Lisinopril) 20 Mg Tablet, 20 MG PO DAILY, (Reported) Discontinued Reason: No Longer Taking Entered as Reported by: COLLINS GONZALES on 07/24/20 0856 Last Action: Discontinued Nitroglycerin (Nitroglycerin) 0.4 Mg Tab.subl, 0.4 MG SL UD PRN for CHEST PAIN, (Reported) Discontinued Reason: No Longer Taking Entered as Reported by: LUZ MARIA SOTO on 06/13/201409 Last Action: Discontinued Pantoprazole Sodium (Pantoprazole Sodium) 40 Mg Tablet.dr, 40 MG PO DAILY, (Reported) Discontinued Reason: No Longer Taking Entered as Reported by: JIAN BOLDEN on 06/12/20 1828 Last Action: Discontinued Prednisone (Prednisone) 20 Mg Tab, 40 MG PO DAILY Discontinued Reason: No Longer Taking Prescribed by: ROBERTO JOSHI on 01/05/21 0952 Last Action: Discontinued Triamcinolone Acet (Triamcinolone Acetonide 0.1% Ointment) 15 Gm Oint, 1 APPLIC TP UD PRN for RASH, (Reported) Discontinued Reason: No Longer Taking Entered as Reported by: LUZ MARIA SOTO on 06/13/201414 Last Action: Discontinued Zinc Oxide (Zinc Oxide) 57 Gm Oint...g., 1 APPLIC TP UD PRN for RASH, (Reported) Discontinued Reason: No Longer Taking Entered as Reported by: LUZ MARIA SOTO on 06/13/201414 Last Action: Discontinued Past Ptxqrzc-Nurcaj-Ctvlap Hx Patient Social History Marrital Status: Employed/Student: employed Review of Systems Constitutional: see HPI Physical Exam General Appearance: No Apparent Distress, WD/WN, Chronically ill Short Stay Diagnosis Discharge Diagnosis-Short Stay Admission Diagnosis: Chest pressure HTN OOC Final Discharge Diagnosis: Chest pressure withno evidence of ACS with normal EST HTN OOC Conclusion Conclusion/Plan DC home soon Supervisory-Addendum Brief Verification & Attestation Participated in pt care: history, MDM, physical Personally performed: exam, history, MDM, supervision of care Care discussed with: Medical Student Procedures: n/a Results interpretation: Verified all documentation Verification and Attestation of Medical Student E/M Service A medical student performed and documented this service in my presence. I reviewed and verified all information documented by the medical student and made modifications to such information, when appropriate. I personally performed the physical exam and medical decision making. Kelsie Beck, Jan 28, 2023,05:05 HORTENSIA LYNCH Jan 27, 2023 14:46 KELSIE BECK DO Jan 28, 2023 05:06
[2023-01-27] MEDS: ASPIRIN 81 MG CHEW (CHILDREN'S ASA) PO SCH (14:52)
[2023-01-27] MEDS: amLODIPine 10 MG (NORVASC) TAB PO SCH (14:52)
[2023-01-27] MEDS: LOSARTAN 100 MG (COZAAR) TABLET PO SCH (14:52)
[2023-01-28] VITALS: BP 116/69
[2023-01-28 04:00] VITALS: BP 128/90
[2023-01-28 05:13] LABS: BASOPHILS # (AUTO) 0.1 10^3/uL (0.0-0.1); BASOPHILS % (AUTO) 1 % (0-10); EOSINOPHILS # (AUTO) 0.5 10^3/uL (0.0-0.3); EOSINOPHILS % (AUTO) 5 % (0-10); HEMATOCRIT 51 % (40-54); HEMOGLOBIN 17.4 g/dL (13.3-17.7); LYMPHOCYTES # (AUTO) 2.9 10^3/uL (1.0-4.0); LYMPHOCYTES % (AUTO) 32 % (12-44); MEAN CORPUSCULAR HEMOGLOBIN 30 pg (25-34); MEAN CORPUSCULAR HGB CONC 34 g/dL (32-36); MEAN CORPUSCULAR VOLUME 89 fL (80-99); MEAN PLATELET VOLUME 10.7 fL (9.0-12.2); MONOCYTES # (AUTO) 1.5 10^3/uL (0.0-1.0); MONOCYTES % (AUTO) 16 % (0-12); NEUTROPHILS # (AUTO) 4.1 10^3/uL (1.8-7.8); NEUTROPHILS % (AUTO) 46 % (42-75); PLATELET COUNT 230 10^3/uL (130-400); WHITE BLOOD COUNT 9.1 10^3/uL (4.3-11.0)
[2023-01-28 05:30] LABS: ALBUMIN 3.8 GM/DL (3.2-4.5); POTASSIUM 4.2 MMOL/L (3.6-5.0)
[2023-01-28 05:31] LABS: CALCIUM 9.5 MG/DL (8.5-10.1)
[2023-01-28] MEDS: ENOXAPARIN 300 MG/3 ML (LOVENOX) MULTI-DOSE VIAL SQ SCH (05:31)
[2023-01-28 05:32] LABS: TOTAL PROTEIN 7.4 GM/DL (6.4-8.2)
[2023-01-28 05:34] LABS: BILIRUBIN,TOTAL 0.5 MG/DL (0.1-1.0)
[2023-01-28 05:36] LABS: CREATININE SERUM 0.96 MG/DL (0.60-1.30)
[2023-01-28] MEDS ORDERED: ASPI81TA64 PO (06:48)
--- NOTE | 2023-01-28 06:48 | Discharge Summary ---
Diagnosis/Chief Complaint Date of Admission Jan 26, 2023 at 18:33 Date of Discharge Discharge Date: Jan 28, 2023 Discharge Diagnosis Chest pain without evidence of ACS with normal stress test HTN urgency Suspect IRENE Discharge Summary Discharge Physical Examination Allergies: Coded Allergies: No Known Drug Allergies (Unverified , 07/24/20) Vitals & I&Os Vital Signs Date Time Temp Pulse Resp B/P (MAP) Pulse Ox O2 Delivery O2 Flow Rate FiO2 01/28/23 08:00 89 17 140/96 (111) 95 Room Air 01/28/23 04:00 36.3 01/26/23 20:11 21 General Appearance: Alert, Oriented X3, Cooperative Respiratory: Clear to Auscultation Cardiovascular: Regular Rate Psych/Mental Status: Mental Status NL Hospital Course Was the Problem List Reviewed?: Yes Uneventful and short course after he was admitted for vague chest pressure and elevated BP. Cardiology assessed and performed EST with no evidence of ACS. BP improved control after meds started and patient was deemed stable for DC. Labs (last 24 hrs) Laboratory Tests 01/26/23 15:50: White Blood Count 9.9, Red Blood Count 5.74H, Hemoglobin 17.0, Hematocrit 50, Mean Corpuscular Volume 87, Mean Corpuscular Hemoglobin 30, Mean Corpuscular Hemoglobin Concent 34, Red Cell Distribution Width 13.0, Platelet Count 241, Mean Platelet Volume 11.2, Immature Granulocyte % (Auto) 1, Neutrophils (%) (Auto) 50, Lymphocytes (%) (Auto) 29, Monocytes (%) (Auto) 14H, Eosinophils (%) (Auto) 5, Basophils (%) (Auto) 1, Neutrophils # (Auto) 4.9, Lymphocytes # (Auto) 2.9, Monocytes # (Auto) 1.4H, Eosinophils # (Auto) 0.5H, Basophils # (Auto) 0.1, Immature Granulocyte # (Auto) 0.1, Prothrombin Time 14.1, INR Comment 1.0, Activated Partial Thromboplast Time 28, Sodium Level 139, Potassium Level 3.8, Chloride Level 107, Carbon Dioxide Level 20L, Anion Gap 12, Blood Urea Nitrogen 9, Creatinine 1.13, Estimat Glomerular Filtration Rate 80, BUN/Creatinine Ratio 8, Glucose Level 109H, Calcium Level 9.6, Corrected Calcium 9.6, Magnesium Level 2.1, Total Bilirubin 0.6, Aspartate Amino Transf (AST/SGOT) 44H, Alanine Aminotransferase (ALT/SGPT) 68H, Alkaline Phosphatase 70, Troponin I < 0.028, Total Protein 7.4, Albumin 4.0 01/27/23 06:16: White Blood Count 7.8, Red Blood Count 5.71H, Hemoglobin 17.2, Hematocrit 50, Mean Corpuscular Volume 88, Mean Corpuscular Hemoglobin 30, Mean Corpuscular Hemoglobin Concent 34, Red Cell Distribution Width 13.0, Platelet Count 210, Mean Platelet Volume 10.4, Immature Granulocyte % (Auto) 0, Neutrophils (%) (Auto) 46, Lymphocytes (%) (Auto) 33, Monocytes (%) (Auto) 14H, Eosinophils (%) (Auto) 6, Basophils (%) (Auto) 1, Neutrophils # (Auto) 3.5, Lymphocytes # (Auto) 2.6, Monocytes # (Auto) 1.1H, Eosinophils # (Auto) 0.5H, Basophils # (Auto) 0.1, Immature Granulocyte # (Auto) 0.0, Sodium Level 139, Potassium Level 3.7, Chloride Level 109H, Carbon Dioxide Level 21, Anion Gap 9, Blood Urea Nitrogen 10, Creatinine 1.00, Estimat Glomerular Filtration Rate 92, BUN/Creatinine Ratio 10, Glucose Level 100, Calcium Level 9.3, Corrected Calcium 9.5, Total Bilirubin 0.6, Aspartate Amino Transf (AST/SGOT) 42H, Alanine Aminotransferase (ALT/SGPT) 66H, Alkaline Phosphatase 67, Troponin I < 0.028, Total Protein 6.9, Albumin 3.7, Triglycerides Level 121, Cholesterol Level 198, LDL Cholesterol Direct 146H , VLDL Cholesterol 24, HDL Cholesterol 39L 01/28/23 05:00: White Blood Count 9.1, Red Blood Count 5.76H, Hemoglobin 17.4, Hematocrit 51, Mean Corpuscular Volume 89, Mean Corpuscular Hemoglobin 30, Mean Corpuscular Hemoglobin Concent 34, Red Cell Distribution Width 13.1, Platelet Count 230, Mean Platelet Volume 10.7, Immature Granulocyte % (Auto) 0, Neutrophils (%) (Auto) 46, Lymphocytes (%) (Auto) 32, Monocytes (%) (Auto) 16H, Eosinophils (%) (Auto) 5, Basophils (%) (Auto) 1, Neutrophils # (Auto) 4.1, Lymphocytes # (Auto) 2.9, Monocytes # (Auto) 1.5H, Eosinophils # (Auto) 0.5H, Basophils # (Auto) 0.1, Immature Granulocyte # (Auto) 0.0, Sodium Level 138, Potassium Level 4.2, Chloride Level 108H, Carbon Dioxide Level 19L, Anion Gap 11, Blood Urea Nitrogen 12, Creatinine 0.96, Estimat Glomerular Filtration Rate 97, BUN/Creatinine Ratio 13, Glucose Level 110H, Calcium Level 9.5, Corrected Calcium 9.7, Total Bilirubin 0.5, Aspartate Amino Transf (AST/SGOT) 48H, Alanine Aminotransferase (ALT/SGPT) 77H, Alkaline Phosphatase 63, Total Protein 7.4, Albumin 3.8 Pending Labs Laboratory Tests 01/26/23 15:50: White Blood Count 9.9, Red Blood Count 5.74, Hemoglobin 17.0, Hematocrit 50, Mean Corpuscular Volume 87, Mean Corpuscular Hemoglobin 30, Mean Corpuscular Hemoglobin Concent 34, Red Cell Distribution Width 13.0, Platelet Count 241, Mean Platelet Volume 11.2, Immature Granulocyte % (Auto) 1, Neutrophils (%) (Auto) 50, Lymphocytes (%) (Auto) 29, Monocytes (%) (Auto) 14, Eosinophils (%) (Auto) 5, Basophils (%) (Auto) 1, Neutrophils # (Auto) 4.9, Lymphocytes # (Auto) 2.9, Monocytes # (Auto) 1.4, Eosinophils # (Auto) 0.5, Basophils # (Auto) 0.1, Immature Granulocyte # (Auto) 0.1, Prothrombin Time 14.1, INR Comment 1.0, Activated Partial Thromboplast Time 28, Sodium Level 139, Potassium Level 3.8, Chloride Level 107, Carbon Dioxide Level 20, Anion Gap 12, Blood Urea Nitrogen 9, Creatinine 1.13, Estimat Glomerular Filtration Rate 80, BUN/Creatinine Ratio 8, Glucose Level 109, Calcium Level 9.6, Corrected Calcium 9.6, Magnesium Level 2.1, Total Bilirubin 0.6, Aspartate Amino Transf (AST/SGOT) 44, Alanine Aminotransferase (ALT/SGPT) 68, Alkaline Phosphatase 70, Troponin I < 0.028, Total Protein 7.4, Albumin 4.0 01/27/23 06:16: White Blood Count 7.8, Red Blood Count 5.71, Hemoglobin 17.2, Hematocrit 50, Mean Corpuscular Volume 88, Mean Corpuscular Hemoglobin 30, Mean Corpuscular Hemoglobin Concent 34, Red Cell Distribution Width 13.0, Platelet Count 210, Mean Platelet Volume 10.4, Immature Granulocyte % (Auto) 0, Neutrophils (%) (Auto) 46, Lymphocytes (%) (Auto) 33, Monocytes (%) (Auto) 14, Eosinophils (%) (Auto) 6, Basophils (%) (Auto) 1, Neutrophils # (Auto) 3.5, Lymphocytes # (Auto) 2.6, Monocytes # (Auto) 1.1, Eosinophils # (Auto) 0.5, Basophils # (Auto) 0.1, Immature Granulocyte # (Auto) 0.0, Sodium Level 139, Potassium Level 3.7, Chloride Level 109, Carbon Dioxide Level 21, Anion Gap 9, Blood Urea Nitrogen 10, Creatinine 1.00, Estimat Glomerular Filtration Rate 92, BUN/Creatinine Ratio 10, Glucose Level 100, Calcium Level 9.3, Corrected Calcium 9.5, Total Bilirubin 0.6, Aspartate Amino Transf (AST/SGOT) 42, Alanine Aminotransferase (ALT/SGPT) 66, Alkaline Phosphatase 67, Troponin I < 0.028, Total Protein 6.9, Albumin 3.7, Triglycerides Level 121, Cholesterol Level 198, LDL Cholesterol Direct 146, VLDL Cholesterol 24, HDL Cholesterol 39 01/28/23 05:00: White Blood Count 9.1, Red Blood Count 5.76, Hemoglobin 17.4, Hematocrit 51, Mean Corpuscular Volume 89, Mean Corpuscular Hemoglobin 30, Mean Corpuscular Hemoglobin Concent 34, Red Cell Distribution Width 13.1, Platelet Count 230, Mean Platelet Volume 10.7, Immature Granulocyte % (Auto) 0, Neutrophils (%) (Auto) 46, Lymphocytes (%) (Auto) 32, Monocytes (%) (Auto) 16, Eosinophils (%) (Auto) 5, Basophils (%) (Auto) 1, Neutrophils # (Auto) 4.1, Lymphocytes # (Auto) 2.9, Monocytes # (Auto) 1.5, Eosinophils # (Auto) 0.5, Basophils # (Auto) 0.1, Immature Granulocyte # (Auto) 0.0, Sodium Level 138, Potassium Level 4.2, Chloride Level 108, Carbon Dioxide Level 19, Anion Gap 11, Blood Urea Nitrogen 12, Creatinine 0.96, Estimat Glomerular Filtration Rate 97, BUN/Creatinine Ratio 13, Glucose Level 110, Calcium Level 9.5, Corrected Calcium 9.7, Total Bilirubin 0.5, Aspartate Amino Transf (AST/SGOT) 48, Alanine Aminotransferase (ALT/SGPT) 77, Alkaline Phosphatase 63, Total Protein 7.4, Albumin 3.8 Discharge Home Medications: Active Scripts Active Toprol Xl (Metoprolol Succinate) 25 Mg Tab.er.24h 25 Mg PO DAILY 30 Days Children's Aspirin (Aspirin) 81 Mg Tab.chew 81 Mg PO DAILY Losartan Potassium 100 Mg Tablet 100 Mg PO DAILY Amlodipine Besylate 10 Mg Tablet 10 Mg PO DAILY Reported Ibuprofen 200 Mg Tablet 400 Mg PO Q8H PRN Tylenol Extra Strength (Acetaminophen) 500 Mg Tablet 1,000 Mg PO Q8H PRN Duloxetine HCl 30 Mg Capsule.dr 30 Mg PO HS Claritin (Loratadine) 10 Mg Tablet 10 Mg PO DAILY PRN Instructions to patient/family Please see electronic discharge instructions given to patient. Clinical Quality Measures AMI/AHF: ASA po Prior to arrival: EUGENE Real DO Jan 28, 2023 06:48
[2023-01-28 08:00] VITALS: BP 140/96
[2023-01-28] MEDS: SENNOSIDES 8.6 MG (SENOKOT) TAB PO SCH (08:20)
[2023-01-28] MEDS: amLODIPine 10 MG (NORVASC) TAB PO SCH (08:20)
[2023-01-28] MEDS: LOSARTAN 100 MG (COZAAR) TABLET PO SCH (08:20)
[2023-01-28] MEDS: ASPIRIN 81 MG CHEW (CHILDREN'S ASA) PO SCH (08:20)
[2023-01-28] MEDS: DOCUSATE SODIUM 100 MG (COLACE) CAP PO SCH (08:21)
[2023-01-28] MEDS ORDERED: METO-351 PO (08:32)
--- NOTE | 2023-01-28 08:36 | Cardiology Progress Note ---
Subjective Date Seen by Provider: Jan 28, 2023 Time Seen by Provider: 08:34 Subjective/Events-last exam Patient is sitting up in chair, no new complaints. Objective-Cardiology Exam Last Set of Vital Signs Vital Signs 01/26/23 01/28/23 20:11 04:00 Temp 36.3 FiO2 21 I&O General: Alert, Oriented X3, Cooperative HEENT: Atraumatic, PERRLA Lungs: Clear to Auscultation, Normal Air Movement Abdomen: Normal Bowel Sounds, Soft Skin: No Rashes, No Significant Lesion Neuro: Normal Speech, Cranial Nerves 3-12 NL Psych/Mental Status: Mental Status NL, Mood NL Results Lab A/P-Cardiology Admission Diagnosis Chest pain Coronary artery disease Hypertension Hyperlipidemia Assessment/Plan Chest pain nonspecific etiology, resembling angina EKG and cardiac enzymes did not show any acute abnormality Stress test done 01/27/23 showing no ischemia or infarct. Coronary artery disease, history of cardiac catheterization done in [address] Chairez, had mild disease nonobstructive disease Patient is reporting that he had a cardiac catheterization at [facility] about 5 years ago required 2 stents. Hypertension, poor control, Started amlodipine and losartan, I will add Toprol XL 25mg daily. Hyperlipidemia, LDL 146, starting Lipitor 20 mg daily Gastroesophageal reflux disease OK for discharge from cardiology standpoint, f/u in our office in 1 month AGUSTINA VOSS Jan 28, 2023 08:36
--- NOTE | 2023-01-28 08:46 | Cardiology Progress Note ---
Subjective Date Seen by Provider: Jan 28, 2023 Time Seen by Provider: 08:46 Subjective/Events-last exam Patient was seen at bedside, laying down comfortably, feeling better. No new complaint, blood pressure is elevated Review of Systems General: No Chills, No Night Sweats, No Fatigue, No Malaise, No Appetite, No Other HEENT: No Head Aches, No Visual Changes, No Eye Pain, No Ear Pain, No Dysphasia, No Sinus Congestion, No Post Nasal Drip, No Sore Throat, No Other Pulmonary: No Dyspnea, No Cough, No Pleuritic Chest Pain, No Other Cardiovascular: No: Chest Pain, Palpitations, Orthopnea, Paroxysmal Noc. Dyspnea, Edema, Lt Headedness, Other Objective-Cardiology Exam Last Set of Vital Signs Vital Signs 01/26/23 01/28/23 01/28/23 20:11 04:00 07:00 Temp 36.3 Pulse 84 Resp 18 B/P (MAP) 128/90 (103) Pulse Ox 94 O2 Delivery Room Air FiO2 21 I&O Intake and Output 01/28/23 00:00 Intake Total 560 ml Output Total 750 ml Balance -190 ml Intake Oral 560 ml Output Urine Total 750 ml General: Alert, Oriented X3, Cooperative HEENT: Atraumatic, PERRLA Lungs: Clear to Auscultation, Normal Air Movement Heart: Regular Rate, Normal S1, Normal S2 Abdomen: Normal Bowel Sounds, Soft Skin: No Rashes, No Significant Lesion Neuro: Normal Speech, Cranial Nerves 3-12 NL Psych/Mental Status: Mental Status NL, Mood NL Results Lab Laboratory Tests 01/28/23 05:00 A/P-Cardiology Admission Diagnosis Chest pain Coronary artery disease Hypertension Hyperlipidemia Assessment/Plan Chest pain nonspecific etiology, resembling angina EKG and cardiac enzymes did not show any acute abnormality Stress test done 01/27/23 showing no ischemia or infarct. Coronary artery disease, history of cardiac catheterization done in [address] Chairez, had mild disease nonobstructive disease Patient is reporting that he had a cardiac catheterization at [facility] about 5 years ago required 2 stents. Hypertension, poor control, Started amlodipine and losartan, I will add Toprol XL 25mg daily. Hyperlipidemia, LDL 146, starting Lipitor 20 mg daily Gastroesophageal reflux disease OK for discharge from cardiology standpoint, f/u in our office in 1 month KAMI SCRUGGS MD Jan 28, 2023 08:46
== END 2023-01-28 09:43 | disposition home or self-care (01) ==
LOC: EDUNIT# 15:28 → ER 15:30 → CSD 18:33
PROVIDERS: ADMIT Internal Medicine; ATTEND Internal Medicine
DX: I25.110 Atherosclerotic heart disease of native coronary artery with unstable angina pectoris (principal); I16.0 Hypertensive urgency; I10 Essential (primary) hypertension; K21.9 Gastro-esophageal reflux disease without esophagitis; E78.5 Hyperlipidemia, unspecified; Z95.5 Presence of coronary angioplasty implant and graft; Z91.199 Patient's noncompliance with other medical treatment and regimen due to unspecified reason
CPT/HCPCS: 71045; 78452; 80053 ×3; 80061; 83735; 84484 ×2; 85025 ×3; 85610; 85730; 93005; 93017; 93041; 96372 ×2; 99284; A9502; C8929; G0378; 36415; 93306

== ENCOUNTER 2023-06-18 17:43 | Emergency (ER) | payer BC ==
[~2023-06-18] VITALS: Ht 190.5 cm; Wt 127.0 kg
[~2023-06-18 17:43] MED LIST changes: +ACET-2267 PO; +AMOX1TAB12 PO; +ASPI81TA64 PO; +DULO30CA49 PO; +IBUP-2473 PO; +LOSA100T58 PO; +METO-351 PO; +RT-ALBUINH INH
--- NOTE | 2023-06-18 18:01 | ED Integumentary General ---
General Chief Complaint: Skin/Wound Problems Stated Complaint: LUMP IN MIDDLE OF CHEST Source: patient Exam Limitations: no limitations (OLY WILSON) History of Present Illness Date Seen by Provider: Jun 18, 2023 Time Seen by Provider: 17:58 Initial Comments Patient is a 48-year-old who presents to ED with pain just lateral of the left lower sternum. Patient states pain started 2 weeks ago described as dull. Over the past week increasing pain worse with deep inspiration or movement. Denies of any swelling or redness to the skin. Denies of any specific injury. Patient denies taking thing for pain. No history of previous symptoms. Denies wheezing, shortness of breath, headache, dizziness, nausea vomit, diarrhea fever, chills. Patient denies increase in size. He states the pain has not movable (OLY WILSON) Allergies and Home Medications Allergies Coded Allergies: No Known Drug Allergies (Unverified , 07/24/20) Patient Home Medication List Home Medication List Reviewed: Yes (OLY WILSON) Acetaminophen (Tylenol Extra Strength) 500 Mg Tablet, 1,000 MG PO Q8H PRN for PAIN-MILD (1-4), (Reported) Entered as Reported by: LUZ MARIA SOTO on 01/27/23 1201 Albuterol Sulfate (Ventolin Hfa) 1 Puff Puff, 2 PUFF INH Q4H Prescribed by: CONSTANCE SAN on 05/28/23 1659 Amlodipine Besylate (Amlodipine Besylate) 10 Mg Tablet, 10 MG PO DAILY Prescribed by: KAMI SCRUGGS on 01/27/23 1407 Amoxicillin/Potassium Clav (Amox Tr-K Clv 875-125 mg Tab) 875 Mg-125 Mg Tablet, 1 EACH PO BID Prescribed by: CONSTANCE SAN on 05/28/23 1659 Aspirin (Children's Aspirin) 81 Mg Tab.chew, 81 MG PO DAILY Prescribed by: EUGENE BECK on 01/28/23 0648 Duloxetine HCl (Duloxetine HCl) 30 Mg Capsule.dr, 30 MG PO HS, (Reported) Entered as Reported by: FREDDIE SCHMITT on 01/26/23 1928 Ibuprofen (Ibuprofen) 200 Mg Tablet, 400 MG PO Q8H PRN for PAIN-MILD (1-4), (Reported) Entered as Reported by: LUZ MARIA SOTO on 01/27/23 1201 Loratadine (Claritin) 10 Mg Tablet, 10 MG PO DAILY PRN for ALLERGY SYMPTOMS, (Reported) Entered as Reported by: LUZ MARIA SOTO on 06/13/20 1410 Losartan Potassium (Losartan Potassium) 100 Mg Tablet, 100 MG PO DAILY Prescribed by: KAMI SCRUGGS on 01/27/23 1407 Metoprolol Succinate (Toprol Xl) 25 Mg Tab.er.24h, 25 MG PO DAILY Prescribed by: AGUSTINA CHUNG on 01/28/23 0832 Prednisone (Prednisone) 20 Mg Tab, 40 MG PO DAILY Prescribed by: CONSTANCE SAN on 05/28/23 1659 Review of Systems Review of Systems Constitutional: No chills, No diaphoresis EENTM: No hearing loss, No blurred vision, No double vision Respiratory: No cough, No dyspnea on exertion Cardiovascular: chest pain; No edema Gastrointestinal: No abdominal pain, No diarrhea, No nausea, No vomiting Genitourinary: No decreased output, No discharge Musculoskeletal: No back pain, No joint pain Skin: No change in color, No change in hair/nails (OLY WILSON) All Other Systems Reviewed Negative Unless Noted: Yes (OLY WILSON) Past [id number] Hx Patient Social History Tobacco Use?: No Use of E-Cig and/or Vaping dev: No Substance use?: No Alcohol Use?: No Pt feels they are or have been: No (OLY WILSON) Immunizations Up To Date First/Initial COVID19 Vaccinat: YES Second COVID19 Vaccination Kal: YES Third COVID19 Vaccination Date: YES (OLY WILSON) Seasonal Allergies Seasonal Allergies: Yes (OLY WILSON) Past Medical History Surgery/Hospitalization HX: SOLO, HERNIA, APPE, RT KNEE SCOPE, NECK SURG HTN Surgeries: Yes (hernia, knee surgery, neck surgery) Abdominal, Appendectomy, Coronary Stent, Gallbladder, Orthopedic Respiratory: Yes Sleep Apnea Currently Using CPAP: No Currently Using BIPAP: No Cardiac: Yes (Heart cath-2010?) Coronary Artery Disease, High Cholesterol, Hypertension Neurological: Yes Neuropathy Reproductive Disorders: No Sexually Transmitted Disease: No HIV/AIDS: No Genitourinary: No Gastrointestinal: Yes Gastroesophageal Reflux Musculoskeletal: Yes Arthritis, Chronic Back Pain Endocrine: No HEENT: No (GLASSES) Loss of Vision: Denies Hearing Impairment: Denies Cancer: Yes Lymphoma Did You Recieve Any Treatments: No Psychosocial: No Integumentary: No Blood Disorders: No Adverse Reaction/Blood Tranf: No (N/A) (OLY WILSON) Family Medical History No Pertinent Family Hx (OLY WILSON) Physical Exam Vital Signs Vital Signs - First Documented 06/18/23 17:50 Temp 35.8 Pulse 94 Resp 16 B/P (MAP) 158/97 (117) Pulse Ox 97 O2 Delivery Room Air (42matters AGA Xtone DO) Vital Signs Capillary Refill : (OLY WILSON) General Appearance: WD/WN, no apparent distress HEENT: PERRL/EOMI, normal ENT inspection, TMs normal, pharynx normal Neck: non-tender, full range of motion, supple Cardiovascular: regular rate, rhythm, no edema, no gallop, no JVD Respiratory: lungs clear, normal breath sounds, no respiratory distress, no accessory muscle use, other (Tenderness to palpate the left lower lateral sternal body. No palpable nodule or movable. Tenderness to palpate. No s urrounding redness or swelling.) Gastrointestinal: normal bowel sounds, non tender, soft Extremities: normal range of motion, non-tender, normal inspection, no pedal edema Neurologic/Psychiatric: packer dried beef II-XII nml as tested, no motor/sensory deficits, alert, normal mood/affect, oriented x 3 Skin: normal color, warm/dry (OLY WILSON) Progress/Results/Core Measures Results/Orders Vital Signs/I&O 06/18/23 06/18/23 17:50 18:34 Temp 35.8 35.8 Pulse 94 94 Resp 16 16 B/P (MAP) 158/97 (117) 158/97 Pulse Ox 97 97 O2 Delivery Room Air Room Air (TURNERTeachableA Xtone DO) Departure Communication (PCP) Patient presents ED with pain just left lateral of the sternum body. Denies of any specific injury. No shortness of breath or wheezing. Denies of any skin color changes. On exam he does have tenderness to the left lateral sternum body where the costal cartilage attaches to the sternum. No palpable nodule that is freely movable suggesting like a lipoma. He is very tender to palpate. No history of cancer. Chest x-ray was ordered which did not note any obvious bony lesion, pneumothorax. Patient denies take anything for pain. I suggest starting with an anti-inflammatory at this time. Recommend heating pad. If continue worsening symptoms would recommend follow-up with your primary care physician to discuss other alternatives. If any worsening symptoms such as chest pain short of breath, wheezing to return back to ED. Patient agrees with plan of action. (OLY WILSON) Impression Primary Impression: Costochondritis Disposition: HOME, SELF-CARE Condition: Stable Departure-Patient Inst. Decision time for Depature: 18:28 (OLY WILSON) Referrals: [facility] (PCP) Primary Care Physician ANAND GROVER APRN (Family) Primary Care Physician Patient Instructions: Costochondritis (DC) Add. Discharge Instructions: Suggest taking anti-inflammatories such as ibuprofen or naproxen. Heat to help with pain. If continued pain recommend follow-up with your primary care physician for further evaluation. All discharge instructions reviewed with patient and/or family. Voiced understanding. ATTENDING PHYSICIAN NOTE: I WAS PHYSICALLY PRESENT ER PHYSICIAN, BUT I WAS NOT INVOLVED IN ANY DECISION MAKING OR ANY CARE OF THIS PATIENT AND I AM NOT COLLABORATING PHYSICIAN. (NACHO TOMPKINS DO) OLY WILSON Jun 18, 2023 18:01 NACHO TOMPKINS DO Jun 19, 2023 00:54
--- NOTE | 2023-06-18 18:13 | Diagnostic Imaging Report ---
EXAM: Chest 1 view, AP/PA only. INDICATION: Left-sided anterior rib pain. COMPARISON: 05/28/2023. FINDINGS: Normal heart size and central pulmonary vascularity. Lungs are clear. No pleural effusion or pneumothorax. No acute osseous finding. IMPRESSION: No acute cardiopulmonary finding. Dictated by: Dictated on workstation # [id number]
[2023-06-18 18:34] VITALS: BP 158/97
== END 2023-06-18 18:35 | disposition home or self-care (01) ==
LOC: EDUNIT# 17:43 → ER 17:45
DX: M94.0 Chondrocostal junction syndrome [Tietze] (principal)
CPT/HCPCS: 71045